=== PATIENT | female | born 1955 | race Caucasian/White ===

== ENCOUNTER → 2017-02-09 | Outpatient (CLI) | payer BC ==
--- NOTE | 2017-02-10 07:55 | MM ---
Reason for exam: screening (asymptomatic). Last mammogram was performed 1 year and 2 months ago. History: Patient is postmenopausal, has history of other cancer at age 46, and is nulliparous. Family history of breast cancer in aunt. Radiation therapy of the left breast, 2002. Chemotherapy. Took estrogen for 10 years. Took progesterone for 10 years. Physical Findings: A clinical breast exam by your physician is recommended on an annual basis and results should be correlated with mammographic findings. MG Screening Mammo w CAD Bilateral CC and MLO view(s) were taken. Prior study comparison: December 02, 2015, bilateral MG screening mammo w CAD. July 18, 2014, bilateral MG work up mamm w CAD BILAT. The breast tissue is heterogeneously dense. This may lower the sensitivity of mammography. Finding: There are typically benign calcifications in the left breast. There is no discrete abnormality. No significant changes in finding since December 02, 2015 and July 18, 2014. ASSESSMENT: Benign, BI-RAD 2 RECOMMENDATION: Routine screening mammogram of both breasts in 1 year.
== END | disposition home or self-care (01) ==
LOC: RADMAMWWP 07:04
PROVIDERS: ATTEND Internal Medicine Geriatric Medicine
DX: Z12.31 Encounter for screening mammogram for malignant neoplasm of breast (principal)

== ENCOUNTER 2017-10-27 04:09 | Emergency (ER) | payer BC ==
[2017-10-27] MEDS ORDERED: ACETAMINOPHEN IV (For NPO) 1,000 MG in EMPTY BAG 1 BAG IVPB STA (04:41)
[2017-10-27] MEDS ORDERED: SODIUM CHLORIDE 0.9% 1,000 ML IV ONE (04:42)
[2017-10-27] MEDS ORDERED: ONDANSETRON 4 MG/2 ML VIAL IVP STA (04:42)
--- NOTE | 2017-10-27 04:47 | ED ---
General Adult HPI - General Chief complaint: Nausea/Vomiting/Diarrhea Stated complaint: poss dehydration Time Seen by Provider: 10/27/17 04:30 Source: patient, RN notes reviewed, old records reviewed Mode of arrival: ambulatory Limitations: no limitations - History of Present Illness Initial comments: 62-year-old female presenting for evaluation of diarrhea and generalized weakness. Patient has history of lymphoma and myelodysplastic syndrome, she is approximately 14 months status post bone marrow transplant. She is currently on tacrolimus, prednisone, acyclovir. Denies any recent increases in her tacrolimus or other medication. She is currently on Levaquin for upper respiratory congestion and cough. Patient has had subjective fever and chills. Denies chest pain. Denies abdominal pain. Did have some nausea. She states she had proximally 4 episodes of significant diarrhea this occurred approximate 5 hours prior to presentation. Patient took Zofran and antidiarrheal medication prior to arrival. - Related Data Home Medications Medication Instructions Recorded Confirmed Atorvastatin [Lipitor] 20 mg PO HS 03/30/15 03/02/16 Ferrous Sulfate [Iron (65 MG 325 mg PO DAILY 03/30/15 03/02/16 Elemental)] Folic Acid 1 mg PO DAILY@0800 03/30/15 03/02/16 Hydroxychloroquine Sulfate 400 mg PO Q48H 03/30/15 03/02/16 [Plaquenil] Metoprolol Succinate [Toprol XL] 25 mg PO DAILY@0800 03/30/15 03/02/16 Alendronate Sodium 70 mg PO TU 04/07/15 03/02/16 Docusate [Colace] 100 mg PO DAILY PRN 04/07/15 03/02/16 Gabapentin [Neurontin] 100 mg PO TID@0600,1400,2200 04/07/15 03/02/16 Hydroxychloroquine Sulfate 200 mg PO Q48H 04/07/15 03/02/16 [Plaquenil] Multivitamins, Thera [Multivitamin 1 tab PO DAILY 04/07/15 03/02/16 (formulary)] Omeprazole [PriLOSEC] 20 mg PO BID 04/07/15 03/02/16 Acetaminophen Tab [Tylenol Tab] 500 - 1,000 mg PO Q6HR PRN 05/29/15 03/02/16 Ca/D3/Mag/Zinc/Nohemi/Rex/Mgbor 1 tab PO BID-W/MEALS 05/29/15 03/02/16 [Caltrate 600+D3+Min Chew Tab] Levothyroxine Sodium [Synthroid] 50 mcg PO TUFR 06/26/15 03/02/16 Levothyroxine Sodium [Synthroid] 100 mcg PO SUMOWETHSA 06/26/15 03/02/16 Magnesium Oxide [Mag-Ox] 400 mg PO BID 06/26/15 03/02/16 Acyclovir [Zovirax] 400 mg PO BID 02/28/16 03/02/16 Levofloxacin [Levaquin] 500 mg PO BID 02/28/16 03/02/16 levETIRAcetam [Keppra] 500 mg PO Q12HR 03/02/16 03/02/16 predniSONE 2.5 mg PO DAILY 03/02/16 03/02/16 Allergies Allergy/AdvReac Type Severity Reaction Status Date / Time Sulfa (Sulfonamide Allergy Unknown Verified 10/27/17 04:18 Antibiotics) Childhood codeine AdvReac Nausea Verified 10/27/17 04:18 hydrocodone bitartrate AdvReac Nausea Verified 10/27/17 04:18 [From Ruso] Review of Systems ROS Statement: Those systems with pertinent positive or pertinent negative responses have been documented in the HPI. ROS Other: All systems not noted in ROS Statement are negative. Past Medical History Past Medical History: Blood Disorder, Cancer, Deep Vein Thrombosis (DVT), GERD/ Reflux, Hypertension, Musculoskeletal Disorder, Osteoarthritis (OA), Renal Disease, Thyroid Disorder Additional Past Medical History / Comment(s): 06/26/15 Pt is a direct admission for chemotherapy. She is scheduled for her 3rd cycle. She intends to have a bone marrow transplant soon. Other HX: Ddiffuse large B-cell lymphoma -first diagnoses 12 yrs ago and pt was been doing well since that time. Then on pt had sinus pressure a mass was discovered and a bx performed at [facility] which confirmed diffuse large B cell lymphoma- pt has begun chemo (RD_EPOCH) at [facility] after which she ended up at [facility] with admission 05/05/15 due to fatigue, weakness, nausea, severe hyponatremia (chronic) ,hypocloremia, hypokalemia, hypomagnesium, anemia, pancytopenia, chemo induced neutropenia, UTI. Pt then decided to have chemo here-locally. She has had 2 doses of EOPCH with Rituxan so far. Additional hx of: DVT L axillae yrs ago, migraines, stage 3 kidney disease, antiphospholipid antibody syndrome with hypercoagulable state, anemia of chronic kidney disease, SLE, paresthesia, peripheral neuropathy bilateral hands, feet and some numbness in face which she attributes to chemo and nasal surgery, pt is on lipitor not for elevated lipids but due to lupus potentially causing heart dx. Bone marrow transplant 2016 History of Any Multi-Drug Resistant Organisms: None Reported Past Surgical History: Hysterectomy Additional Past Surgical History / Comment(s): 02/[facility]15 P[facility] line insertion. Other SX HX: tumor removed from left arm from 1st time of lymphoma, 04/16/15 sinus bx, yrs ago mediport L chest which never worked and was removed. Past Anesthesia/Blood Transfusion Reactions: No Reported Reaction Past Psychological History: Anxiety, Depression Smoking Status: Never smoker Past Alcohol Use History: None Reported Past Drug Use History: None Reported - Past Family History Father Family Medical History: Cancer Additional Family Medical History / Comment(s): prostate CA Mother Family Medical History: No Reported History Brother(s) Family Medical History: Myocardial Infarction (CA) General Exam Limitations: no limitations General appearance: alert, in no apparent distress Head exam: Present: atraumatic, normocephalic Eye exam: Present: normal appearance, PERRL ENT exam: Present: mucous membranes dry Neck exam: Present: normal inspection. Absent: tenderness, meningismus Respiratory exam: Present: normal lung sounds bilaterally. Absent: respiratory distress, wheezes Cardiovascular Exam: Present: regular rate, normal rhythm GI/Abdominal exam: Present: soft. Absent: distended, tenderness Extremities exam: Present: normal capillary refill, other (Chase discoloration of bilateral lower extremities). Absent: tenderness, pedal edema Neurological exam: Present: alert, oriented X3, CN II-XII intact. Absent: motor sensory deficit Psychiatric exam: Present: normal affect, normal mood Skin exam: Present: warm, dry, intact. Absent: cyanosis, diaphoretic Course Vital Signs 10/27/17 10/27/17 04:13 05:38 Temperature 100.2 F H Pulse Rate 99 87 Respiratory 18 18 Rate Blood Pressure 134/76 104/53 O2 Sat by Pulse 99 95 Oximetry Medical Decision Making - Medical Decision Making 62-year-old female presenting with nausea and diarrhea. Patient believes she is dehydrated. She has history of lymphoma status post bone marrow transplant. Patient pays very close attention to her symptoms. She has a home care nurse. She is given Zofran, Tylenol, and 1 L normal saline. Laboratory studies are obtained, white blood cell count 5.8, hemoglobin 12.5, platelets 178. Sodium 136, creatinine mildly elevated 1.1. Influenza negative, chest x- ray negative for focal pneumonia. Urinalysis negative for UTI. Patient is currently on Levaquin for upper respiratory tract infection. She is advised to monitor her diarrhea any serious chance for the development of C. difficile. She is very reliable patient and will return to the emergency department with any change in her symptoms. She does want to be discharged. She is offered admission and prefers discharge. Diagnosis: Diarrhea, dehydration - Lab Data Result diagrams: 10/27/17 05:25 10/27/17 05:25 Lab Results 10/27/17 10/27/17 10/27/17 Range/Units 05:25 05:25 05:25 WBC 5.8 (3.8-10.6) k/uL RBC 3.55 L (3.80-5.40) m/uL Hgb 12.5 (11.4-16.0) gm/dL Hct 39.0 (34.0-46.0) % MCV 109.9 H (80.0-100.0) fL MCH 35.1 H (25.0-35.0) pg MCHC 31.9 (31.0-37.0) g/dL RDW 13.7 (11.5-15.5) % Plt Count 179 (150-450) k/uL Neutrophils % (Manual) 66 % Band Neutrophils % 10 % Lymphocytes % (Manual) 11 % Monocytes % (Manual) 13 % Neutrophils # (Manual) 4.40 (1.3-7.7) k/uL Lymphocytes # (Manual) 0.64 L (1.0-4.8) k/uL Monocytes # (Manual) 0.75 (0-1.0) k/uL Nucleated RBCs 0 (0-0) /100 WBC Manual Slide Review Performed Macrocytosis Marked PT (9.0-12.0) sec INR (<1.2) APTT (22.0-30.0) sec Sodium 136 L (137-145) mmol/L Potassium 4.8 (3.5-5.1) mmol/L Chloride 101 (98-107) mmol/L Carbon Dioxide 29 (22-30) mmol/L Anion Gap 6 mmol/L BUN 29 H (7-17) mg/dL Creatinine 1.10 H (0.52-1.04) mg/dL Est GFR (MDRD) Af Amer >60 (>60 ml/min/1.73 sqM) Est GFR (MDRD) Non-Af 50 (>60 ml/min/1.73 sqM) Glucose 103 H (74-99) mg/dL Plasma Lactic Acid Jimi (0.7-2.0) mmol/L Calcium 8.9 (8.4-10.2) mg/dL Total Bilirubin 0.7 (0.2-1.3) mg/dL AST 33 (14-36) U/L ALT 38 (9-52) U/L Alkaline Phosphatase 55 (38-126) U/L Total Protein 6.0 L (6.3-8.2) g/dL Albumin 3.9 (3.5-5.0) g/dL Urine Color Urine Appearance (Clear) Urine pH (5.0-8.0) Ur Specific [place] (1.001-1.035) Urine Protein (Negative) Urine Glucose (UA) (Negative) Urine Ketones (Negative) Urine Blood (Negative) Urine Nitrite (Negative) Urine Bilirubin (Negative) Urine Urobilinogen (<2.0) mg/dL Ur Leukocyte Esterase (Negative) Urine RBC (0-5) /hpf Urine WBC (0-5) /hpf Urine Mucus (None) /hpf Influenza Type A RNA Not Detected (Not Detectd) Influenza Type B (PCR) Not Detected (Not Detectd) 10/27/17 10/27/17 10/27/17 Range/Units 05:25 05:25 05:25 WBC (3.8-10.6) k/uL RBC (3.80-5.40) m/uL Hgb (11.4-16.0) gm/dL Hct (34.0-46.0) % MCV (80.0-100.0) fL MCH (25.0-35.0) pg MCHC (31.0-37.0) g/dL RDW (11.5-15.5) % Plt Count (150-450) k/uL Neutrophils % (Manual) % Band Neutrophils % % Lymphocytes % (Manual) % Monocytes % (Manual) % Neutrophils # (Manual) (1.3-7.7) k/uL Lymphocytes # (Manual) (1.0-4.8) k/uL Monocytes # (Manual) (0-1.0) k/uL Nucleated RBCs (0-0) /100 WBC Manual Slide Review Macrocytosis PT 9.6 (9.0-12.0) sec INR 1.0 (<1.2) APTT 19.3 L (22.0-30.0) sec Sodium (137-145) mmol/L Potassium (3.5-5.1) mmol/L Chloride (98-107) mmol/L Carbon Dioxide (22-30) mmol/L Anion Gap mmol/L BUN (7-17) mg/dL Creatinine (0.52-1.04) mg/dL Est GFR (MDRD) Af Amer (>60 ml/min/1.73 sqM) Est GFR (MDRD) Non-Af (>60 ml/min/1.73 sqM) Glucose (74-99) mg/dL Plasma Lactic Acid Jimi 1.4 (0.7-2.0) mmol/L Calcium (8.4-10.2) mg/dL Total Bilirubin (0.2-1.3) mg/dL AST (14-36) U/L ALT (9-52) U/L Alkaline Phosphatase (38-126) U/L Total Protein (6.3-8.2) g/dL Albumin (3.5-5.0) g/dL Urine Color Yellow Urine Appearance Clear (Clear) Urine pH 6.5 (5.0-8.0) Ur Specific [place] 1.014 (1.001-1.035) Urine Protein 1+ H (Negative) Urine Glucose (UA) Negative (Negative) Urine Ketones Negative (Negative) Urine Blood Small H (Negative) Urine Nitrite Negative (Negative) Urine Bilirubin Negative (Negative) Urine Urobilinogen <2.0 (<2.0) mg/dL Ur Leukocyte Esterase Moderate H (Negative) Urine RBC 1 (0-5) /hpf Urine WBC 1 (0-5) /hpf Urine Mucus Rare H (None) /hpf Influenza Type A RNA (Not Detectd) Influenza Type B (PCR) (Not Detectd) Disposition Clinical Impression: Dehydration, Diarrhea Disposition: HOME SELF-CARE Condition: Good Instructions: Acute Diarrhea (ED) Referrals: Quentin Espinosa MD [Primary Care Provider] - 1-2 days Hunter Jolly MD [STAFF PHYSICIAN] - 1-2 days Time of Disposition: 06:40
[2017-10-27 05:49] LABS: ALT 38 U/L (9-52); AST 33 U/L (14-36); Albumin 3.9 g/dL (3.5-5.0); Alkaline Phosphatase 55 U/L (38-126); Anion Gap 6 mmol/L; Blood Urea Nitrogen 29 mg/dL (7-17); Calcium 8.9 mg/dL (8.4-10.2); Carbon Dioxide 29 mmol/L (22-30); Chloride 101 mmol/L (98-107); Glucose 103 mg/dL (74-99); Potassium 4.8 mmol/L (3.5-5.1); Sodium 136 mmol/L (137-145); Total Bilirubin 0.7 mg/dL (0.2-1.3)
[2017-10-27 05:52] LABS: HGB 12.5 gm/dL (11.4-16.0); MCH 35.1 pg (25.0-35.0); MCHC 31.9 g/dL (31.0-37.0); MCV 109.9 fL (80.0-100.0); Macrocytosis Marked; Mean Platelet Volume 7.5; Platelet Count 179 k/uL (150-450); RBC 3.55 m/uL (3.80-5.40); RDW 13.7 % (11.5-15.5); WBC 5.8 k/uL (3.8-10.6)
[2017-10-27 05:53] LABS: Prothrombin Time 9.6 sec (9.0-12.0)
[2017-10-27 05:54] LABS: Appearance,Urine Clear (Clear); Bilirubin,Urine Negative (Negative); Blood,Urine Small (Negative); Color,Urine Yellow; Glucose,Urine (UA) Negative (Negative); Ketones,Urine Negative (Negative); Leukocyte Esterase,Urine Moderate (Negative); Mucus,Urine Rare /hpf; Nitrite,Urine Negative (Negative); PH, Urine 6.5 (5.0-8.0); Protein,Urine 1+ (Negative); RBC,Urine 1 /hpf (0-5); Specific Gravity,Urine 1.014 (1.001-1.035); Urobilinogen,Urine <2.0 mg/dL (<2.0); WBC,Urine 1 /hpf (0-5)
[2017-10-27 06:08] LABS: Partial Thromboplastin Time 19.3 sec (22.0-30.0)
[2017-10-27 06:13] LABS: Band Neutrophils % 10 %; Lymphocytes # (M) 0.64 k/uL (1.0-4.8); Monocytes # (M) 0.75 k/uL (0-1.0); Neutrophils % (M) 66 %; Nucleated Red Blood Cells 0 /100 WBC (0-0); Total Cells Counted 100
--- NOTE | 2017-10-27 06:15 | XR ---
EXAMINATION TYPE: XR chest 2V DATE OF EXAM: 10/27/2017 COMPARISON: CT chest abdomen and pelvis July 15, 2016. Two-view chest x-ray May 26, 2015 HISTORY: Fever for one day. TECHNIQUE: Frontal and lateral views of the chest are obtained. FINDINGS: There is chronic parenchymal change without suspicious focal air space opacity, pleural ef fusion, or pneumothorax seen. The cardiac silhouette size is mildly enlarged with atherosclerotic ao rta. The osseous structures are intact. IMPRESSION: Chronic parenchymal changes and mild cardiomegaly without acute pulmonary process.
[2017-10-27 23:18] VITALS: BP 112/57; PULSE 81; RESP 18; TEMP 98.5
== END 2017-10-27 06:53 | disposition home or self-care (01) ==
LOC: EC 04:09
DX: E86.0 Dehydration (principal); R19.7 Diarrhea, unspecified; R53.1 Weakness; I10 Essential (primary) hypertension; K21.9 Gastro-esophageal reflux disease without esophagitis; E07.9 Disorder of thyroid, unspecified; I12.9 Hypertensive chronic kidney disease with stage 1 through stage 4 chronic kidney disease, or unspecified chronic kidney disease; N18.3 Chronic kidney disease, stage 3 (moderate); F41.9 Anxiety disorder, unspecified; F32.9 Major depressive disorder, single episode, unspecified; Z85.72 Personal history of non-Hodgkin lymphomas; Z94.81 Bone marrow transplant status; Z86.718 Personal history of other venous thrombosis and embolism; Z79.52 Long term (current) use of systemic steroids; Z79.899 Other long term (current) drug therapy; Z88.2 Allergy status to sulfonamides; Z88.5 Allergy status to narcotic agent
CPT/HCPCS: 99284 ×2; 96374 ×2; 96375 ×2; 96361 ×2; 36415; 80053; 83605; 85025; 85610; 85730; 81001; 87040; 87502; 71046; J2405; J0131

== ENCOUNTER → 2017-10-29 | Outpatient (CLI) | payer BC ==
--- NOTE | 2017-10-29 11:08 | BD ---
EXAMINATION TYPE: MG DEXA axial skeleton. DATE OF EXAM: 10/29/2017 COMPARISON: NONE CLINICAL HISTORY: M81.0 Age related osteoporosis w/o fracture Height: 64 Weight: 136.1 FRAX RISK QUESTIONS: Alcohol (3 or more units per day): no Family History (Parent hip fracture): no Glucocorticoids (More than 3mos): yes/ prednisone (Ex: prednisone, prednisolone, methylprednisolone, dexamethasone, and hydrocortisone). History of Fracture in Adulthood: no Secondary Osteoporosis: 1. Type 1 Diabetes: no 2. Hyperthyroidism: no 3. Menopause before 45: yes 4. Malnutrition: no 5. Chronic liver disease: no Rheumatoid Arthritis: no Current Tobacco Use: no RISK FACTORS HISTORY OF: Hip Fracture (Right/Left): no Spine Fracture: no History of Wrist Fracture: no Surgery to Spine/Hip(right/left)/Wrist (right/left): no Family History of Osteoporosis: no Active: yes Diet low in dairy products/other sources of calcium: yes Postmenopausal woman: complete hysterectomy age 33 Lost more than 2 inches in height since high school: no Frequent falls: no Poor Health: no Hyperparathyroidism: no Adrenal Insufficiency: no MEDICATIONS: Prednisone : yes How Lon years Thyroid Medications: synthroid How Long: since 2002 Osteoporosis Medications: stopped taking fosamax 1 year ago How Long: took for at least three years Additional History: pt was diagnosed with lupus at age 14, had lymphoma in 2002 and again in 2017- serrano s had a bone marrow transplant EXAM MEASUREMENTS: Bone mineral densitometry was performed using the [employer] System. Bone mineral density as measured about the Lumbar spine is: ----- L1-L4(G/cm2): 0.876 T Score Values are as follows: ----- L2: -3.0 ----- L3: -2.0 ----- L4: -3.0 ----- L1-L4: -2.5 Bone mineral density has: decreased -2.5 % since study of: 2015 Bone mineral density about the R hip (g/cm2): 0.898 Bone mineral density about the L hip (g/cm2): 0.845 T Score values are as follows: -----R Neck: -1.0 -----L Neck: -1.4 -----R Total: -1.1 -----L Total: -1.0 Bone mineral density has: decreased -5.7 % since study of: 07.17.2016 IMPRESSION: 1. Osteoporosis about the lumbar spine. NOTE: T-SCORE=SD OF THE YOUNG ADULT MEAN.
== END | disposition home or self-care (01) ==
LOC: RADBDWWP 07:10
PROVIDERS: ATTEND Internal Medicine Geriatric Medicine
DX: M81.0 Age-related osteoporosis without current pathological fracture (principal)
CPT/HCPCS: 77080

== ENCOUNTER → 2018-03-10 | Outpatient (CLI) | payer BC ==
--- NOTE | 2018-03-11 10:28 | MM ---
Reason for exam: screening (asymptomatic). Last mammogram was performed 1 year and 1 month ago. History: Patient is postmenopausal, has history of other cancer at age 46, and is nulliparous. Family history of breast cancer in aunt. Radiation therapy of the left breast, 2002. Chemotherapy. Took estrogen for 10 years. Took progesterone for 10 years. Physical Findings: A clinical breast exam by your physician is recommended on an annual basis and results should be correlated with mammographic findings. MG 3D Screening Mammo W/Cad Bilateral CC and MLO view(s) were taken. Prior study comparison: February 09, 2017, bilateral MG screening mammo w CAD. December 02, 2015, bilateral MG screening mammo w CAD. There are scattered fibroglandular densities. Skin thickening left breast appears increased from priors. This finding is changed when compared with previous exams. ASSESSMENT: Incomplete: need additional imaging evaluation, BI-RAD 0 RECOMMENDATION: Ultrasound of the left breast. (left ultrasound recommended and surgical consult after diagnostic exam) [facility] will attempt to contact patient to return for ultrasound.
== END | disposition home or self-care (01) ==
LOC: RADMAMWWP 13:16
PROVIDERS: ATTEND Internal Medicine Geriatric Medicine
DX: Z12.31 Encounter for screening mammogram for malignant neoplasm of breast (principal)
CPT/HCPCS: 77063; 77067

== ENCOUNTER → 2018-03-16 | Outpatient (CLI) | payer BC ==
--- NOTE | 2018-03-17 07:03 | USB ---
Reason for exam: additional evaluation requested from abnormal screening. History: Patient is postmenopausal, has history of other cancer at age 46, and is nulliparous. Family history of breast cancer in aunt. Radiation therapy of the left breast, 2002. Chemotherapy. Took estrogen for 10 years. Took progesterone for 10 years. Physical Findings: Nurse did not find any significant physical abnormalities on exam. US Breast Workup LT Left complete breast ultrasound includes all four quadrants, the retroareolar region and axilla. Finding demonstrates a 0.5 x 0.5 x 0.3cm irregular, hyperechoic lesion at 7 o'clock retroareolar which correlates with calcification on mammographic findings. These results were verbally communicated with the patient and result sheet given to the patient on 03/16/18. ASSESSMENT: Benign, BI-RAD 2 RECOMMENDATION: Return to routine screening mammogram schedule for both breasts.
== END | disposition home or self-care (01) ==
LOC: RADUSWWP 15:31
PROVIDERS: ATTEND Internal Medicine Geriatric Medicine
DX: R92.8 Other abnormal and inconclusive findings on diagnostic imaging of breast (principal)

== ENCOUNTER → 2018-09-19 | Outpatient (CLI) | payer MEDICARE, BC ==
--- NOTE | 2018-09-19 13:46 | BD ---
EXAMINATION TYPE: Axial Bone Density DATE OF EXAM: 09/19/2018 COMPARISON: 10/29/2017 CLINICAL HISTORY: Postmenopausal female. Osteoporosis screening. Height: 63 IN Weight: 131 LBS FRAX RISK QUESTIONS: Secondary Osteoporosis: 3. Menopause before 45: YES TOTAL HYST AGE 33 RISK FACTORS HISTORY OF: Active: YES Postmenopausal woman: AGE 33 Take estrogen and/or progesterone medications: NOT NOW How lon - 43 MEDICATIONS: Thyroid Medications: YES Which medication: Synthroid How Lon YEARS Osteoporosis Medications: YES Which medication: ABALOPARATIDE 80 MCG DAILY INJECTION How Long: ONE YEAR Additional Medications: IBRUTINIB, APIXABAN, DAPSONE, FLUCONAZOLE, DEXAMETHASONE, RESTASIS, TOPROL XL , PROCTOCORT, KENALOG OINTMENT, SINGULAIR, ADVAIR DISKUS, ZITHROMAX, GABAPENTIN, ZOVIRAX, ABALOPARATI DE INJECTION, CRESTOR, ZYRTEC, VIT D, CALCIUM,SYNTHROID Additional History: NON HODGEKINS LYMPHOMA 2002 AND 2014 WITH CHEMO AND RADIATION AUTO BONE MARROW WITH CHEMO 2014; ALLO BONE MARROW WITH CHEMO 2015 EXAM MEASUREMENTS: Bone mineral densitometry was performed using the [employer] System. Bone mineral density as measured about the Lumbar spine is: ----- L1-L4(G/cm2): 1.115 T Score Values are as follows: ----- L2: -0.9 ----- L3: -0.2 ----- L4: -0.9 ----- L1-L4: -0.5 Bone mineral density has: Increased 26.7% since study of: 10/29/2017 Bone mineral density about the R hip (g/cm2): 0.983 Bone mineral density about the L hip (g/cm2): 0.971 T Score values are as follows: -----R Neck: -0.4 -----L Neck: -0.5 -----R Total: -0.5 -----L Total: 0.0 Bone mineral density has: Increased 11.9% since study of: 10/29/2017 IMPRESSION: Normal (Values between +1 and -1 indicate normal bone mass). Consider repeating this study in 5 year s or sooner if there is some new clinical indication. NOTE: T-SCORE=SD OF THE YOUNG ADULT MEAN.
== END | disposition home or self-care (01) ==
LOC: RADBDWWP 07:37
PROVIDERS: ATTEND Internal Medicine Geriatric Medicine
DX: M81.0 Age-related osteoporosis without current pathological fracture (principal)
CPT/HCPCS: 77080

== ENCOUNTER → 2020-06-03 | Outpatient (CLI) | payer MEDICARE ==
--- NOTE | 2020-06-03 14:31 | MM ---
Reason for exam: screening (asymptomatic). Last mammogram was performed 1 year and 1 month ago. History: Patient is postmenopausal, has history of other cancer at age 46, and is nulliparous. Family history of breast cancer in aunt. Radiation therapy of the left breast, 2002. Chemotherapy. Took estrogen for 10 years. Took progesterone for 10 years. Physical Findings: A clinical breast exam by your physician is recommended on an annual basis and results should be correlated with mammographic findings. MG 3D Screening Mammo W/Cad Bilateral CC and MLO view(s) were taken. Prior study comparison: April 26, 2019, bilateral MG 3d screening mammo w/cad. March 10, 2018, bilateral MG 3d screening mammo w/cad. The breast tissue is heterogeneously dense. This may lower the sensitivity of mammography. There are benign appearing round dystrophic calcifications bilaterally. There is no discrete abnormality. ASSESSMENT: Benign, BI-RAD 2 RECOMMENDATION: Routine screening mammogram of both breasts in 1 year.
== END | disposition home or self-care (01) ==
LOC: RADMAMWWP 07:14
PROVIDERS: ATTEND Internal Medicine Geriatric Medicine
DX: Z12.31 Encounter for screening mammogram for malignant neoplasm of breast (principal)
CPT/HCPCS: 77063; 77067

== ENCOUNTER 2020-12-27 01:06 | Emergency (ER) | payer MEDICARE ==
[2020-12-27 01:12] VITALS: BP 131/79; PULSE 67; RESP 20; TEMP 98
[2020-12-27] MEDS ORDERED: SODIUM CHLORIDE 0.9% 1,000 ML IV STA (01:45)
[2020-12-27] MEDS ORDERED: ONDANSETRON 4 MG/2 ML VIAL IVP STA (01:45)
--- NOTE | 2020-12-27 01:49 | ED ---
Nausea/Vomiting/Diarrhea HPI - General Chief complaint: Nausea/Vomiting/Diarrhea Stated complaint: Diarrhea, Vomiting Time Seen by Provider: 12/27/20 01:15 Source: patient, family Mode of arrival: wheelchair Limitations: no limitations - History of Present Illness Initial comments: This patient is 65-year-old woman who presents with complaint of nausea vomiting and diarrhea. She states that started a few hours ago. She had which she felt was a normal bowel movement tonight and this was followed shortly thereafter by another 6 or 7 watery bowel movements and then also feeling nausea and vomiting. She has had some intermittent generalized abdominal cramping. Patient is concerned about possibility of dehydration as this tends to set and quickly for her. She has not had any coffee-ground or bloody emesis. No bloody or tarry stools. MD complaint: nausea, vomiting, diarrhea, abdominal pain -: hour(s) Description of Vomiting: watery Description of Diarrhea: water Associated Abdominal Pain: Yes Location: diffuse Severity: mild Quality: cramping Consistency: intermittent Improves with: none Worsens with: none Context: possible food poisoning Associated Symptoms: nausea/vomiting - Related Data Home Medications Medication Instructions Recorded Confirmed Atorvastatin [Lipitor] 20 mg PO HS 03/30/15 03/02/16 Ferrous Sulfate [Iron (65 MG 325 mg PO DAILY 03/30/15 03/02/16 Elemental)] Folic Acid 1 mg PO DAILY@0800 03/30/15 03/02/16 Hydroxychloroquine Sulfate 400 mg PO Q48H 03/30/15 03/02/16 [Plaquenil] Metoprolol Succinate [Toprol XL] 25 mg PO DAILY@0800 03/30/15 03/02/16 Alendronate Sodium 70 mg PO TU 04/07/15 03/02/16 Docusate [Colace] 100 mg PO DAILY PRN 04/07/15 03/02/16 Gabapentin [Neurontin] 100 mg PO TID@0600,1400,2200 04/07/15 03/02/16 Hydroxychloroquine Sulfate 200 mg PO Q48H 04/07/15 03/02/16 [Plaquenil] Multivitamins, Thera [Multivitamin 1 tab PO DAILY 04/07/15 03/02/16 (formulary)] Omeprazole [PriLOSEC] 20 mg PO BID 04/07/15 03/02/16 Acetaminophen Tab [Tylenol Tab] 500 - 1,000 mg PO Q6HR PRN 05/29/15 03/02/16 Ca/D3/Mag/Zinc/Nohemi/Rex/Mgbor 1 tab PO BID-W/MEALS 05/29/15 03/02/16 [Caltrate 600+D3+Min Chew Tab] Levothyroxine Sodium [Synthroid] 50 mcg PO TUFR 06/26/15 03/02/16 Levothyroxine Sodium [Synthroid] 100 mcg PO SUMOWETHSA 06/26/15 03/02/16 Magnesium Oxide [Mag-Ox] 400 mg PO BID 06/26/15 03/02/16 Acyclovir [Zovirax] 400 mg PO BID 02/28/16 03/02/16 Levofloxacin [Levaquin] 500 mg PO BID 02/28/16 03/02/16 levETIRAcetam [Keppra] 500 mg PO Q12HR 03/02/16 03/02/16 predniSONE 2.5 mg PO DAILY 03/02/16 03/02/16 Previous Rx's Medication Instructions Recorded Ondansetron Odt [Zofran ODT] 4 mg PO Q8HR PRN #10 tab 12/27/20 Allergies Allergy/AdvReac Type Severity Reaction Status Date / Time Sulfa (Sulfonamide Allergy Unknown Verified 12/27/20 01:13 Antibiotics) Childhood codeine AdvReac Nausea Verified 12/27/20 01:13 hydrocodone bitartrate AdvReac Nausea Verified 12/27/20 01:13 [From [place]] Review of Systems ROS Statement: Those systems with pertinent positive or pertinent negative responses have been documented in the HPI. ROS Other: All systems not noted in ROS Statement are negative. Constitutional: Denies: fever, chills Respiratory: Denies: cough, dyspnea Cardiovascular: Denies: chest pain, palpitations, edema Gastrointestinal: Reports: abdominal pain, nausea, vomiting, diarrhea. Denies: constipation, hematemesis, melena, hematochezia Genitourinary: Denies: dysuria, hematuria Musculoskeletal: Denies: back pain Skin: Denies: rash Neurological: Denies: headache, weakness, numbness Past Medical History Past Medical History: Blood Disorder, Cancer, Deep Vein Thrombosis (DVT), DEVON D/Reflux, Hypertension, Musculoskeletal Disorder, Osteoarthritis (OA), Renal Disease, Thyroid Disorder Additional Past Medical History / Comment(s): 06/26/15 Pt is a direct admission for chemotherapy. She is scheduled for her 3rd cycle. She intends to have a bone marrow transplant soon. Other HX: Ddiffuse large B-cell lymphoma -first diagnoses 12 yrs ago and pt was been doing well since that time. Then on 04/16/15 pt had sinus pressure a mass was discovered and a bx performed at [facility] which confirmed diffuse large B cell lymphoma- pt has begun chemo (RD_EPOCH) at [facility] after which she ended up at [facility] with admission 05/05/15 due to fatigue, weakness, nausea, severe hyponatremia (chronic) ,hypocloremia, hypokalemia, hypomagnesium, anemia, pancytopenia, chemo induced neutropenia, UTI. Pt then decided to have chemo here-locally. She has had 2 doses of EOPCH with Rituxan so far. Additional hx of: DVT L axillae yrs ago, migraines, stage 3 kidney disease, antiphospholipid antibody syndrome with hypercoagulable state, anemia of chronic kidney disease, SLE, paresthesia, peripheral neuropathy bilateral hands, feet and some numbness in face which she attributes to chemo and nasal surgery, pt is on lipitor not for elevated lipids but due to lupus potentially causing heart dx. Bone marrow transplant 2015 History of Any Multi-Drug Resistant Organisms: None Reported Past Surgical History: Hysterectomy Additional Past Surgical History / Comment(s): 02/2015 bone marrow aspiration at [facility], 05/29/15 PICC line insertion. Other SX HX: tumor removed from left arm from 1st time of lymphoma, 04/16/15 sinus bx, yrs ago mediport L chest which never worked and was removed. Past Anesthesia/Blood Transfusion Reactions: No Reported Reaction Past Psychological History: Anxiety, Depression Past Alcohol Use History: None Reported Past Drug Use History: None Reported - Past Family History Father Family Medical History: Cancer Additional Family Medical History / Comment(s): prostate CA Mother Family Medical History: No Reported History Brother(s) Family Medical History: Myocardial Infarction ([place]) General Exam Limitations: no limitations General appearance: alert, in no apparent distress Head exam: Present: atraumatic, normocephalic Eye exam: Present: normal appearance. Absent: scleral icterus, conjunctival injection ENT exam: Present: mucous membranes dry Neck exam: Present: normal inspection Respiratory exam: Present: normal lung sounds bilaterally. Absent: respiratory distress, wheezes, rales, rhonchi, stridor Cardiovascular Exam: Present: regular rate, normal rhythm, normal heart sounds. Absent: systolic murmur, diastolic murmur, rubs, gallop GI/Abdominal exam: Present: soft. Absent: distended, tenderness, guarding, rebound, rigid, mass, pulsatile mass, hernia Extremities exam: Present: normal inspection, normal capillary refill. Absent: pedal edema, calf tenderness Back exam: Present: normal inspection. Absent: CVA tenderness (R), CVA tenderness (L) Neurological exam: Present: alert Skin exam: Present: warm, dry, intact, normal color. Absent: rash Course Vital Signs 12/27/20 01:09 Temperature 98 F Pulse Rate 67 Respiratory 20 Rate Blood Pressure 131/79 O2 Sat by Pulse 91 L Oximetry Medical Decision Making - Lab Data Result diagrams: 12/27/20 01:30 12/27/20 01:30 Lab Results 12/27/20 12/27/20 Range/Units 01:30 01:30 WBC 6.4 (3.8-10.6) k/uL RBC 4.29 (3.80-5.40) m/uL Hgb 13.8 (11.4-16.0) gm/dL Hct 42.7 (34.0-46.0) % MCV 99.6 (80.0-100.0) fL MCH 32.1 (25.0-35.0) pg MCHC 32.2 (31.0-37.0) g/dL RDW 13.7 (11.5-15.5) % Plt Count 258 (150-450) k/uL MPV 7.6 Lymphocytes % 26 % Monocytes % 6 % Eosinophils % 0 % Basophils % 0 % Neutrophils # 4.2 (1.3-7.7) k/uL Lymphocytes # 1.7 (1.0-4.8) k/uL Monocytes # 0.4 (0-1.0) k/uL Eosinophils # 0.0 (0-0.7) k/uL Basophils # 0.0 (0-0.2) k/uL Sodium 138 (137-145) mmol/L Potassium 3.9 (3.5-5.1) mmol/L Chloride 100 (98-107) mmol/L Carbon Dioxide 29 (22-30) mmol/L Anion Gap 9 mmol/L BUN 28 H (7-17) mg/dL Creatinine 1.04 (0.52-1.04) mg/dL Est GFR (CKD-EPI)AfAm 65 (>60 ml/min/1.73 sqM) Est GFR (CKD-EPI)NonAf 56 (>60 ml/min/1.73 sqM) Glucose 111 H (74-99) mg/dL Calcium 10.0 (8.4-10.2) mg/dL Total Bilirubin 0.5 (0.2-1.3) mg/dL AST 35 (14-36) U/L ALT 22 (4-34) U/L Alkaline Phosphatase 80 (38-126) U/L Total Protein 7.0 (6.3-8.2) g/dL Albumin 4.6 (3.5-5.0) g/dL Amylase 71 (30-110) U/L Lipase 81 (23-300) U/L Disposition Clinical Impression: Gastroenteritis Disposition: HOME SELF-CARE Condition: Good Instructions (If sedation given, give patient instructions): Gastroenteritis (ED) Prescriptions: Ondansetron Odt [Zofran ODT] 4 mg PO Q8HR PRN #10 tab PRN Reason: Nausea Is patient prescribed a controlled substance at d/c from ED?: No Referrals: Quentin Espinosa MD [Primary Care Provider] - 1-2 days
[2020-12-27 02:22] LABS: Albumin 4.6 g/dL (3.5-5.0); Potassium 3.9 mmol/L (3.5-5.1); Total Bilirubin 0.5 mg/dL (0.2-1.3)
[2020-12-27 02:29] LABS: Basophils % (A) 0 %; Eosinophils % (A) 0 %; HCT 42.7 % (34.0-46.0); HGB 13.8 gm/dL (11.4-16.0); Lymphocytes # (A) 1.7 k/uL (1.0-4.8); Lymphocytes % (A) 26 %; MCH 32.1 pg (25.0-35.0); MCHC 32.2 g/dL (31.0-37.0); MCV 99.6 fL (80.0-100.0); Mean Platelet Volume 7.6; Monocytes # (A) 0.4 k/uL (0-1.0); Monocytes % (A) 6 %; Neutrophils # (A) 4.2 k/uL (1.3-7.7); Platelet Count 258 k/uL (150-450); RBC 4.29 m/uL (3.80-5.40); RDW 13.7 % (11.5-15.5); WBC 6.4 k/uL (3.8-10.6)
== END 2020-12-27 04:35 | disposition home or self-care (01) ==
LOC: EC 01:06
DX: K52.9 Noninfective gastroenteritis and colitis, unspecified (principal); I12.9 Hypertensive chronic kidney disease with stage 1 through stage 4 chronic kidney disease, or unspecified chronic kidney disease; N18.30 Chronic kidney disease, stage 3 unspecified; D63.1 Anemia in chronic kidney disease; K21.9 Gastro-esophageal reflux disease without esophagitis; F32.9 Major depressive disorder, single episode, unspecified; F41.9 Anxiety disorder, unspecified; M19.90 Unspecified osteoarthritis, unspecified site; Z79.52 Long term (current) use of systemic steroids; Z79.899 Other long term (current) drug therapy; Z86.718 Personal history of other venous thrombosis and embolism
CPT/HCPCS: 36415; 80053; 82150; 83690; 85025; 87324; 99284; 96374; 96361; J2405

== ENCOUNTER 2021-05-23 16:32 | Emergency (ER) | payer MEDICARE ==
[2021-05-23 16:41] VITALS: TEMP 98.4
--- NOTE | 2021-05-23 17:14 | ED ---
General Adult HPI - General Chief complaint: Recheck/Abnormal Lab/Rx Stated complaint: Fall/Sent by Time Seen by Provider: 05/23/21 16:42 Source: patient Mode of arrival: wheelchair Limitations: no limitations - History of Present Illness Initial comments: Dictation was produced using [employer] dictation software. please excuse any grammatical, word or spelling errors. Chief Complaint: 65-year-old female presents to the emergency department for abnormal CT History of Present Illness: Is a 65-year-old female she was sent in by her primary care doctor for abnormal CT. She was seen this morning at the urgent care after suffering a fall. She was ordered to have a computed tomography scan. Computed tomography scan showed nodular prominence of the distal right ICA compatible with aneurysm measuring 8 mm. Patient states that she hasn't been having headaches. She did have some head pain after fall. She denies a feeling worsening of her life. She denies any focal neurologic deficits. She feels fine otherwise. The ROS documented in this emergency department record has been reviewed and confirmed by me. Those systems with pertinent positive or negative responses have been documented in the HPI. All other systems are other negative and/or noncontributory. PHYSICAL EXAM: General Impression: Alert and oriented x3, not in acute distress HEENT: Normocephalic atraumatic, extra-ocular movements intact, pupils equal and reactive to light bilaterally, mucous membranes moist. Cardiovascular: Heart regular rate and rhythm Chest: Able to complete full sentences, no retractions, no tachypnea Abdomen: abdomen soft, non-tender, non-distended, no organomegaly Musculoskeletal: Pulses present and equal in all extremities, no peripheral edema Motor: no focal deficits noted Neurological: CN II-XII grossly intact, no focal motor or sensory deficits noted Skin: Intact with no visualized rashes Psych: Normal affect and mood ED course: 65-year-old female presents with abnormal brain CT that showed incidental finding of a 10 mm aneurysm. Signs upon arrival are within acceptable limits. Patient's well-appearing at bedside. She has no complaint of severe headache. Laboratory evaluation obtained. CBC, metabolic panel is unremarkable. CT angiogram of the head and neck was obtained showing a 6 mm aneurysm at the right ICA diameter, and one junction. Case discussed with Dr. Katz who also reviewed patient's film. He recommends patient be followed up an outpatient. Discussed with patient stroke doctor recommendations. She will follow up in his outpatient clinic. Return precautions discussion is that she should seek immediate medical attention if she has the worse headache of her life, strokelike symptoms, syncope or thunderclap headache. She denies any symptoms at time of discharge. - Related Data Home Medications Medication Instructions Recorded Confirmed Levothyroxine Sodium [Synthroid] 100 mcg PO DAILY 06/26/15 05/23/21 Aspirin EC [Ecotrin Low Dose] 81 mg PO HS 05/23/21 05/23/21 Azithromycin [Zithromax] 250 mg PO MOWEFR 05/23/21 05/23/21 Calcium Carbonate [Calcium] 600 mg PO W/SUPPER 05/23/21 05/23/21 Cetirizine HCl [Zyrtec] 10 mg PO DAILY 05/23/21 05/23/21 Cholecalciferol [Vitamin D3 (25 25 mcg PO DAILY 05/23/21 05/23/21 Mcg = 1000 Iu)] Estradiol Cream [Estrace Cream 1 gram VAGINAL HS 05/23/21 05/23/21 0.01%] Fluticasone/Salmeterol [Advair 1 puff INHALATION RT-BID 05/23/21 05/23/21 250-50 Diskus] Gabapentin 300 mg PO DAILY 05/23/21 05/23/21 Metoprolol Succinate (ER) [Toprol 100 mg PO DAILY 05/23/21 05/23/21 Xl] Montelukast [Singulair] 10 mg PO HS 05/23/21 05/23/21 Proctocort 30mg Suppository 30 mg VAGINAL HS 05/23/21 05/23/21 Rosuvastatin Calcium 10 mg PO HS 05/23/21 05/23/21 Triamcinolone 0.1% Ointment 1 applic TOPICAL HS 05/23/21 05/23/21 [Kenalog 0.1% Ointment] cycloSPORINE 0.05% OPHTH SOLN 1 applicate BOTH EYES BID 05/23/21 05/23/21 [Restasis] Allergies Allergy/AdvReac Type Severity Reaction Status Date / Time Sulfa (Sulfonamide Allergy Unknown Verified 05/23/21 17:31 Antibiotics) Childhood codeine AdvReac Nausea Verified 05/23/21 17:31 hydrocodone bitartrate AdvReac Nausea Verified 05/23/21 17:31 [From [place]] Review of Systems ROS Statement: Those systems with pertinent positive or pertinent negative responses have been documented in the HPI. ROS Other: All systems not noted in ROS Statement are negative. Past Medical History Past Medical History: Blood Disorder, Cancer, Deep Vein Thrombosis (DVT), GERD/Reflux, Hypertension, Musculoskeletal Disorder, Osteoarthritis (OA), Renal Disease, Thyroid Disorder Additional Past Medical History / Comment(s): 06/26/15 Pt is a direct admission for chemotherapy. She is scheduled for her 3rd cycle. She intends to have a bone marrow transplant soon. Other HX: Ddiffuse large B-cell lymphoma -first diagnoses 12 yrs ago and pt was been doing well since that time. Then on 04/16/15 pt had sinus pressure a mass was discovered and a bx performed at of which confirmed diffuse large B cell lymphoma- [facility] which [facility] at [facility] with admission 05/05/15 due to fatigue, weakness, nausea, severe hyponatremia (chronic) ,hypocloremia, hypokalemia, hypomagnesium, anemia, pancytopenia, chemo induced neutropenia, UTI. Pt then decided to have chemo here-locally. She has had 2 doses of EOPCH with Rituxan so far. Additional hx of: DVT L axillae yrs ago, migraines, stage 3 kidney disease, antiphospholipid antibody syndrome with hypercoagulable state, anemia of chronic kidney disease, SLE, paresthesia, peripheral neuropathy bilateral hands, feet and some numbness in face which she attributes to chemo and nasal surgery, pt is on lipitor not for elevated lipids but due to lupus potentially causing heart dx. Bone marrow transplant 2016 History of Any Multi-Drug Resistant Organisms: None Reported Past Surgical History: Hysterectomy Additional Past Surgical History / Comment(s): 02/2015 [facility] , 05/29/15 PICC line insertion. Other SX HX: tumor removed from left arm from 1st time of lymphoma, 04/16/15 sinus bx, yrs ago mediport L chest which never worked and was removed. Past Anesthesia/Blood Transfusion Reactions: No Reported Reaction Past Psychological History: Anxiety, Depression Smoking Status: Never smoker Past Alcohol Use History: None Reported Past Drug Use History: None Reported - Past Family History Father Family Medical History: Cancer Additional Family Medical History / Comment(s): prostate CA Mother Family Medical History: No Reported History Brother(s) Family Medical History: Myocardial Infarction ([place]) General Exam Limitations: no limitations Course Vital Signs 05/23/21 05/23/21 16:38 19:00 Temperature 98.4 F Pulse Rate 74 77 Respiratory 20 18 Rate Blood Pressure 156/87 167/86 O2 Sat by Pulse 97 97 Oximetry Medical Decision Making - Lab Data Result diagrams: 05/23/21 17:11 05/23/21 17:11 Lab Results 05/23/21 05/23/21 Range/Units 17:11 17:11 WBC 6.7 (3.8-10.6) k/uL RBC 3.51 L (3.80-5.40) m/uL Hgb 12.2 (11.4-16.0) gm/dL Hct 35.8 (34.0-46.0) % MCV 101.8 H (80.0-100.0) fL MCH 34.6 (25.0-35.0) pg MCHC 34.0 (31.0-37.0) g/dL RDW 13.9 (11.5-15.5) % Plt Count 264 (150-450) k/uL MPV 7.4 Neutrophils % (Manual) 41 % Band Neuts % (Manual) 1 % Lymphocytes % (Manual) 41 % Monocytes % (Manual) 16 % Metamyelocytes % 1 % Neutrophils # (Manual) 2.80 (1.3-7.7) k/uL Lymphocytes # (Manual) 2.75 (1.0-4.8) k/uL Monocytes # (Manual) 1.07 H (0-1.0) k/uL Metamyelocytes # (Man) 0.07 H (0) k/uL Nucleated RBCs 0 (0-0) /100 WBC Manual Slide Review Performed Macrocytosis Slight Sodium 136 L (137-145) mmol/L Potassium 4.9 (3.5-5.1) mmol/L Chloride 103 (98-107) mmol/L Carbon Dioxide 28 (22-30) mmol/L Anion Gap 5 mmol/L BUN 26 H (7-17) mg/dL Creatinine 0.97 (0.52-1.04) mg/dL Est GFR (CKD-EPI)AfAm 70 (>60 ml/min/1.73 sqM) Est GFR (CKD-EPI)NonAf 61 (>60 ml/min/1.73 sqM) Glucose 117 H (74-99) mg/dL Calcium 9.2 (8.4-10.2) mg/dL Disposition Clinical Impression: Intracranial aneurysm Disposition: HOME SELF-CARE Condition: Good Instructions (If sedation given, give patient instructions): Nonruptured Cerebral Aneurysm (DC) Additional Instructions: Seek immediate medical attention with any severe headache, strokelike symptoms, syncope Is patient prescribed a controlled substance at d/c from ED?: No Referrals: Wayne Mcguire MD [STAFF PHYSICIAN] - 1-2 days
[2021-05-23 17:37] LABS: HCT 35.8 % (34.0-46.0); HGB 12.2 gm/dL (11.4-16.0); MCH 34.6 pg (25.0-35.0); MCV 101.8 fL (80.0-100.0); Macrocytosis Slight; Mean Platelet Volume 7.4; Platelet Count 264 k/uL (150-450); RBC 3.51 m/uL (3.80-5.40); RDW 13.9 % (11.5-15.5); WBC 6.7 k/uL (3.8-10.6)
[2021-05-23 17:52] LABS: Calcium 9.2 mg/dL (8.4-10.2)
[2021-05-23 17:55] LABS: Potassium 4.9 mmol/L (3.5-5.1)
[2021-05-23 18:09] LABS: Band Neutrophils % 1 %; Lymphocytes # (M) 2.75 k/uL (1.0-4.8); Metamyelocytes # (M) 0.07 k/uL (0); Metamyelocytes % 1 %; Monocytes # (M) 1.07 k/uL (0-1.0); Neutrophils % (M) 41 %; Nucleated Red Blood Cells 0 /100 WBC (0-0); Total Cells Counted 100
--- NOTE | 2021-05-23 19:31 | CT ---
EXAMINATION TYPE: CT angio head neck DATE OF EXAM: 05/23/2021 HISTORY: Aneurysm seen on previous CT. COMPARISON: None available. CT DLP: 420.8 mGycm. Automated Exposure Control for Dose Reduction was Utilized. TECHNIQUE: CTA scan of the neck is performed with IV Contrast, patient injected with 65ml mL of Isov ue 370, axial images are obtained, coronal and sagittal reformatted images are reviewed. Three-D natalia nstructed images are created on an independent workstation and reviewed. FINDINGS: There is mild atherosclerosis of the aortic arch. Otherwise normal three-vessel branching of the aort a. There is no evidence of high-grade stenosis, dissection or aneurysm seen in the bilateral common c arotid, cervical internal carotid and vertebral arteries. There is approximately 6 x 5 mm aneurysm at the right ICA terminus and MCA M1 junction. Otherwise no evidence of high-grade stenosis or dissection in the intracranial internal carotid arteries, anterior , middle and posterior cerebral arteries as well as in the imaged vertebral and basilar arteries. The communicating arteries are unremarkable. IMPRESSION: Approximately 6 mm aneurysm at the right ICA diameter/M1 junction. Otherwise no acute abnormality of the CTA head/neck. NASCET criteria was used in interpretation of this exam?
[2021-05-23 19:47] VITALS: RESP 18
[2021-05-23 20:15] VITALS: BP 147/79; PULSE 75
== END 2021-05-23 20:15 | disposition home or self-care (01) ==
LOC: EC 16:32
DX: I67.1 Cerebral aneurysm, nonruptured (principal); I12.9 Hypertensive chronic kidney disease with stage 1 through stage 4 chronic kidney disease, or unspecified chronic kidney disease; N18.30 Chronic kidney disease, stage 3 unspecified; K21.9 Gastro-esophageal reflux disease without esophagitis; M19.90 Unspecified osteoarthritis, unspecified site; G43.909 Migraine, unspecified, not intractable, without status migrainosus; D63.1 Anemia in chronic kidney disease; F32.9 Major depressive disorder, single episode, unspecified; F41.9 Anxiety disorder, unspecified; Z79.51 Long term (current) use of inhaled steroids; Z79.82 Long term (current) use of aspirin; Z79.899 Other long term (current) drug therapy; Z86.718 Personal history of other venous thrombosis and embolism; Z87.440 Personal history of urinary (tract) infections; Z88.2 Allergy status to sulfonamides; Z88.5 Allergy status to narcotic agent
CPT/HCPCS: 36415; 70496; 70498; 80048; 85025; 99284

== ENCOUNTER → 2021-05-23 | Outpatient (CLI) | payer MEDICARE ==
--- NOTE | 2021-05-23 13:04 | CT ---
EXAMINATION TYPE: CT brain wo con DATE OF EXAM: 05/23/2021 COMPARISON: 03/02/2016 HISTORY: Fall with head injury today. CT DLP: 1032.3 mGycm Automated exposure control for dose reduction was used. FINDINGS: Mild generalized degenerative change. No midline shift or mass effect. There is no evidence of acute hemorrhage. Calvarium intact. Craniocervical junction maintained. Sella turcica has a normal appearance. There is nonspecific white matter changes seen. The globes are symmetric and. No significant changes of sinusitis. There is nodular prominence the right internal carotid artery highly suspicious for an aneurysm. IMPRESSION: 1. Degenerative and nonspecific white matter changes most typical remote white matter ischemia. 2. Nodular prominence of the distal right ICA compatible with aneurysm measuring approximately 8 mm. Correlate with follow-up MRA [facility] of [place]
== END | disposition home or self-care (01) ==
LOC: RADCTMAIN 12:15
PROVIDERS: ATTEND Physician Assistant
DX: S09.90XA Unspecified injury of head, initial encounter (principal)
CPT/HCPCS: 70450

== ENCOUNTER → 2021-06-17 | Outpatient (CLI) | payer MEDICARE ==
--- NOTE | 2021-06-18 10:54 | MM ---
Reason for exam: screening (asymptomatic). Last mammogram was performed 1 year ago. History: Patient is postmenopausal, has history of other cancer at age 46, and is nulliparous. Family history of breast cancer in aunt. Radiation therapy of the left breast, 2002. Chemotherapy. Taking estrogen for 10 years beginning at age 65. Took progesterone for 10 years. Physical Findings: A clinical breast exam by your physician is recommended on an annual basis and results should be correlated with mammographic findings. MG 3D Screening Mammo W/Cad Bilateral CC and MLO view(s) were taken. Prior study comparison: June 03, 2020, bilateral MG 3d screening mammo w/cad. April 26, 2019, bilateral MG 3d screening mammo w/cad. The breast tissue is heterogeneously dense. This may lower the sensitivity of mammography. Coarse calcifications left breast. There is no discrete abnormality. No significant changes when compared with prior studies. ASSESSMENT: Benign, BI-RAD 2 RECOMMENDATION: Routine screening mammogram of both breasts in 1 year.
== END | disposition home or self-care (01) ==
LOC: RADMAMWWP 10:47
PROVIDERS: ATTEND Obstetrics & Gynecology
DX: Z12.31 Encounter for screening mammogram for malignant neoplasm of breast (principal); Z80.3 Family history of malignant neoplasm of breast; Z78.0 Asymptomatic menopausal state
CPT/HCPCS: 77063; 77067

== ENCOUNTER → 2021-11-21 | Outpatient (CLI) | payer MEDICARE ==
[~2021-11-21] MED LIST: SODIUM CHLORIDE 0.9% 50 ML IVPB ONE; SODIUM CHLORIDE 0.9% 500 ML 500 ML in EMPTY BAG 1 BAG IV PRN; SOTROVIMAB (EUA) 500 MG in SODIUM CHLORIDE 0.9% 100 ML IVPB ONE
[2021-11-21 13:33] VITALS: TEMP 99.2
[2021-11-21 14:12] VITALS: BP 178/84; PULSE 69; RESP 16
== END ==
LOC: PROCWHC3 12:51
PROVIDERS: ATTEND Nurse Practitioner Family
DX: U07.1 COVID-19 (principal); D84.9 Immunodeficiency, unspecified; N18.9 Chronic kidney disease, unspecified; I25.10 Atherosclerotic heart disease of native coronary artery without angina pectoris; Z88.2 Allergy status to sulfonamides; Z88.5 Allergy status to narcotic agent
CPT/HCPCS: 96360; Q0247; M0247

== ENCOUNTER → 2023-06-21 | Outpatient (CLI) | payer MEDICARE ==
--- NOTE | 2023-06-23 14:50 | MM ---
Reason for Exam: Screening (asymptomatic). Last screening mammogram was performed 12 month(s) ago. Patient History: Menarche at age 10. Patient has no children. Left ovary removed at age 33. Right ovary removed at age 33. Hysterectomy at age 33. Postmenopausal. Other cancer, age 46. Currently using Estrogen, beginning at age 63 for 2 years. Patient used Progesterone for 2 years. Chemotherapy. 2002, Radiation Therapy on the left side. Maternal aunt had breast cancer. Risk Values: Mayte 5 year model risk: 1.9%. NCI Lifetime model risk: 5.9%. Prior Study Comparison: 06/03/2020 Bilateral Screening Mammogram, [facility]. 06/17/2021 Bilateral Screening Mammogram, [facility]. 06/18/2022 Bilateral MG 3D screening mammo w/cad, [facility]. Tissue Density: The breast tissue is heterogeneously dense. This may lower the sensitivity of mammography. Findings: Analyzed By CAD. No significant changes when compared with prior studies. No discrete abnormality. Overall Assessment: Benign, BI-RAD 2 Management: Screening Mammogram of both breasts in 1 year. Electronically signed and approved by: Nahun Toussaint M.D. Radiologis
== END | disposition home or self-care (01) ==
LOC: RADMAMWWP 13:18
PROVIDERS: ATTEND Obstetrics & Gynecology
DX: Z12.31 Encounter for screening mammogram for malignant neoplasm of breast (principal); Z78.0 Asymptomatic menopausal state; Z80.3 Family history of malignant neoplasm of breast
CPT/HCPCS: 77063; 77067

== ENCOUNTER 2024-02-09 07:27 | Inpatient (IN) | payer MEDICARE ==
--- NOTE | 2024-02-09 08:23 | ED ---
General Adult HPI - General Chief complaint: Abdominal Pain Stated complaint: abd pain Time Seen by Provider: 02/09/24 08:02 Source: patient, RN notes reviewed, old records reviewed Mode of arrival: wheelchair Limitations: no limitations - History of Present Illness Initial comments: Patient is a 68-year-old female who presents emergency department complaining of abdominal pain. Pain started approximately 6 AM. I evaluated the patient at a pproximately 8:02 AM when she was placed in a room. States that it is periumbilical in nature. Denies any change in bowel movements. Does endorse nausea with it but no episodes of emesis. Does have a history of hysterectomy, appendectomy. No known sick contacts. Last bowel movement was earlier today. Has a history of hypertension, acid reflux, cancer, thyroid disease. Denies any fevers, chills, sick contacts. Denies any urinary complaints. Presents for further evaluation at this time. - Related Data Home Medications Medication Instructions Recorded Confirmed Levothyroxine Sodium [Synthroid] 100 mcg PO DAILY 06/26/15 02/09/24 Aspirin EC [Ecotrin Low Dose] 81 mg PO HS 05/23/21 02/09/24 Calcium Carbonate [Calcium] 600 mg PO W/SUPPER 05/23/21 02/09/24 Cetirizine HCl [Zyrtec] 10 mg PO DAILY 05/23/21 02/09/24 Estradiol Cream [Estrace Cream 1 gram VAGINAL HS 05/23/21 02/09/24 0.01%] Fluticasone Propion/Salmeterol 1 puff INHALATION RT-BID 05/23/21 02/09/24 [Advair 250-50 Diskus] Metoprolol Succinate (ER) [Toprol 100 mg PO DAILY 05/23/21 02/09/24 Xl] Montelukast [Singulair] 10 mg PO HS 05/23/21 02/09/24 Proctocort 30mg Suppository 30 mg RECTAL HS PRN 05/23/21 02/09/24 Rosuvastatin Calcium 10 mg PO HS 05/23/21 02/09/24 Albuterol Sulfate [Albuterol 1 - 2 puff PO RT-Q6H PRN 02/09/24 02/09/24 Sulfate Hfa] Carboxymethylcellulose Sodium 1 - 2 drop BOTH EYES DIRECTED 02/09/24 02/09/24 [Refresh Tears] PRN Lifitegrast [Xiidra] 1 drop BOTH EYES BID 02/09/24 02/09/24 lisinopriL [Prinivil] 10 mg PO DAILY 02/09/24 02/09/24 Allergies Allergy/AdvReac Type Severity Reaction Status Date / Time Sulfa (Sulfonamide Allergy Unknown Verified 02/09/24 09:36 Antibiotics) Childhood codeine AdvReac Nausea Verified 02/09/24 09:36 hydrocodone bitartrate AdvReac Nausea Verified 02/09/24 09:36 [From [place]] Review of Systems ROS Statement: Those systems with pertinent positive or pertinent negative responses have been documented in the HPI. Review of Systems: CONST: Denies fever EYES: Denies blurry vision ENT: Denies nasal congestion C/V: Denies Chest pain RESP: Denies shortness of breath GI: Endorses abdominal pain : Denies dysuria SKIN: Denies rash. MSK: Denies joint pain. NEURO: Denies headache ROS Other: All systems not noted in ROS Statement are negative. Past Medical History Past Medical History: Blood Disorder, Cancer, Deep Vein Thrombosis (DVT), GERD/Reflux, Hypertension, Musculoskeletal Disorder, Osteoarthritis (OA), Renal Disease, Thyroid Disorder Additional Past Medical History / Comment(s): 06/26/15 Pt is a direct admission for chemotherapy. She is scheduled for her 3rd cycle. She intends to have a bone marrow transplant soon. Other HX: Ddiffuse large B-cell lymphoma -first diagnoses 12 yrs ago and pt was been doing well since that time. Then on 04/16/15 pt had sinus pressure a mass was discovered and a bx performed at [facility] which confirmed diffuse large B cell lymphoma- pt has begun chemo (RD_EPOCH) at [facility] after which she ended up at [facility] with admission 05/05/15 due to fatigue, weakness, nausea, severe hyponatremia (chronic) ,hypocloremia, hypokalemia, hypomagnesium, anemia, pancytopenia, chemo induced neutropenia, UTI. Pt then decided to have chemo here-locally. She has had 2 doses of EOPCH with Rituxan so far. Additional hx of: DVT L axillae yrs ago, migraines, stage 3 kidney disease, antiphospholipid antibody syndrome with hypercoagulable state, anemia of chronic kidney disease, SLE, paresthesia, peripheral neuropathy bilateral engle ds, feet and some numbness in face which she attributes to chemo and nasal surgery, pt is on lipitor not for elevated lipids but due to lupus potentially causing heart dx. Bone marrow transplant 2016 History of Any Multi-Drug Resistant Organisms: None Reported Past Surgical History: Hysterectomy Additional Past Surgical History / Comment(s): 02/[address] [facility], 05/29/15 PICC line insertion. Other SX HX: tumor removed from left arm from 1st time of lymphoma, 04/16/15 sinus bx, yrs ago mediport L chest which never worked and was removed. Past Anesthesia/Blood Transfusion Reactions: No Reported Reaction Past Psychological History: Anxiety, Depression Smoking Status: Never smoker Past Alcohol Use History: None Reported Past Drug Use History: None Reported - Past Family History Father Family Medical History: Cancer Additional Family Medical History / Comment(s): prostate CA Mother Family Medical History: No Reported History Brother(s) Family Medical History: Myocardial Infarction (CA) General Exam - General Exam Comments Initial Comments: General: Appears in moderate distress secondary to abdominal pain. HEAD: Normal with no signs of head trauma. EYES: PERRLA, EOMI, conjunctiva normal, no discharge. ENT: Hearing grossly intact, normal oropharynx. RESPIRATORY: Clear breath sounds bilaterally. No wheezes, rales, or rhonchi. C/V: Regular rate and rhythm. S1 and S2 auscultated, no edema, peripheral pulses 2+ and intact throughout ABD: Abdomen is soft, nondistended. Tender to palpation periumbilically and in the left lower quadrant. No guarding, rebound tenderness, peritoneal signs. EXT: Normal range of motion, no obvious deformity SKIN: No rashes or lesions observed on exposed skin. NEURO: Alert and oriented x 4. Limitations: no limitations Course Vital Signs 02/09/24 02/09/24 02/09/24 07:31 08:47 10:00 Temperature 97.6 F 98.9 F 98 F Pulse Rate 64 62 68 Respiratory 18 14 14 Rate Blood Pressure 171/90 171/77 189/79 O2 Sat by Pulse 98 93 L 100 Oximetry 02/09/24 12:59 Temperature Pulse Rate 65 Respiratory 16 Rate Blood Pressure 136/81 O2 Sat by Pulse 100 Oximetry Medical Decision Making - Medical Decision Making Was pt. sent in by a medical professional or institution (ELIF Burgess, [employer], urgent care, hospital, or fpc...) When possible be specific @ -No Did you speak to anyone other than the patient for history (EMS, parent, family, police, friend...)? What history was obtained from this source @ -No Did you review nursing and triage notes (agree or disagree)? Why? @ -I reviewed and agree with nursing and triage notes Were old charts reviewed (outside hosp., previous admission, EMS record, old EKG, old radiological studies, urgent care reports/EKG's, fpc records)? Report findings @ -Old charts reviewed Differential Diagnosis (chest pain, altered mental status, abdominal pain women, abdominal pain men, vaginal bleeding, weakness, fever, dyspnea, syncope, headache, dizziness, GI bleed, back pain, seizure, CVA, palpatations, mental health, musculoskeletal)? @ -Differential Abdominal Pain Women: Appendicitis, Cholecystitis, diverticulosis, ischemic bowel, pancreatitis, hepatitis, UTI, gastroenteritis, AAA, incarcerated hernia, bowel obstruction, constipation, inflammatory bowel, hepatitis, peptic ulcer disease, splenic infarction, perforated viscus, vulvitis, ovarian torsion, PID, kidney stone, placenta abruption, this is not meant to be an all-inclusive list EKG interpreted by me (3pts min.). @ -As above X-rays interpreted by me (1pt min.). @ -None done CT interpreted by me (1pt min.). @ -CT imaging shows findings consistent with high-grade small bowel obstruction. U/S interpreted by me (1pt. min.). @ -None done What testing was considered but not performed or refused? (CT, X-rays, U/S, labs)? Why? @ -None What meds were considered but not given or refused? Why? @ -None Did you discuss the management of the patient with other professionals (professionals i.e. ELIF Burgess, [employer], lab, RT, psych nurse, licensed social worker, disc inspector, teacher, chief diversity officer, pillowcase turner)? Give summary @ -I spoke with on-call surgeon, Dr. Dodson who requested patient be made a medical admission, but otherwise was in agreement with plan for n.p.o., empiric antibiotics, NG tube. I spoke with the patient's PCP, Dr. Espinosa who accepted the patient as a medical admission. Was smoking cessation discussed for >3mins.? @ -No Was critical care preformed (if so, how long)? @ -No Were there social determinants of health that impacted care today? How? (Homelessness, low income, unemployed, alcoholism, drug addiction, transportation, low edu. Level, literacy, decrease access to med. care, [place] [facility], r ehab)? @ -No Was there de-escalation of care discussed even if they declined (Discuss DNR or withdrawal of care, Hospice)? DNR status @ -No What co-morbidities impacted this encounter? (DM, HTN, Smoking, COPD, CAD, Cancer, CVA, ARF, Chemo, Hep., AIDS, mental health diagnosis, sleep apnea, morbid obesity)? @ -None Was patient admitted / discharged? Hospital course, mention meds given and route, prescriptions, significant lab abnormalities, going to OR and other pertinent info. @ -Based on the patient's presentation and physical exam, presents emergency department complaining of sudden onset abdominal pain in the mid to lower abdomen. Associate with nausea. No other complaints. Symptoms have been ongoing for approximately 2 hours. We will obtain abdominal laboratory studies, as well as screening EKG and CT abdomen pelvis. Patient be symptomatically treated with IV fluids, Zofran, Protonix, morphine. Patient was in agreement this plan. Vital signs within acceptable limits. Patient's laboratory studies are within acceptable limits. EKG shows no signs of acute ischemia. CT abdomen pelvis shows a high-grade small bowel obstruction as well as findings consistent with esophagitis/gastritis. At this time, NG tube was placed, blood cultures and empiric Zosyn started. Patient made NPO. I spoke with the on-call surgeon, Dr. Castelan who was in agreement with this plan but requested patient be made a medical admission. I spoke with patient's PCP Dr. Boone who accepted the admission. Patient was in agreement this plan. She will be admitted for further management. Undiagnosed new problem with uncertain prognosis? @ -No Drug Therapy requiring intensive monitoring for toxicity (Heparin, Nitro, Insulin, Cardizem)? @ -No Were any procedures done? @ -No Diagnosis/symptom? @ -Small bowel obstruction Acute, or Chronic, or Acute on Chronic? @ -Acute Uncomplicated (without systemic symptoms) or Complicated (systemic symptoms)? @ -Complicated Side effects of treatment? @ -None Exacerbation, Progression, or Severe Exacerbation] @ -No Poses a threat to life or bodily function? @ -Yes - Lab Data Result diagrams: 02/09/24 08:39 02/09/24 08:39 Lab Results 02/09/24 02/09/24 02/09/24 Range/Units 08:39 08:39 08:39 WBC 7.1 (3.8-10.6) k/uL RBC 3.58 L (3.80-5.40) m/uL Hgb 11.6 (11.4-16.0) gm/dL Hct 35.7 (34.0-46.0) % MCV 99.6 (80.0-100.0) fL MCH 32.5 (25.0-35.0) pg MCHC 32.7 (31.0-37.0) g/dL RDW 13.0 (11.5-15.5) % Plt Count 248 (150-450) k/uL MPV 7.6 Neutrophils % (Manual) 65 % Lymphocytes % (Manual) 28 % Monocytes % (Manual) 6 % Eosinophils % (Manual) 1 % Neutrophils # (Manual) 4.62 (1.3-7.7) k/uL Lymphocytes # (Manual) 1.99 (1.0-4.8) k/uL Monocytes # (Manual) 0.43 (0-1.0) k/uL Eosinophils # (Manual) 0.07 (0-0.7) k/uL Nucleated RBCs 0 (0-0) /100 WBC Manual Slide Review Performed PT (10.0-12.5) sec INR (<1.2) APTT (22.0-30.0) sec Sodium 137 (137-145) mmol/L Potassium 4.0 (3.5-5.1) mmol/L Chloride 104 (98-107) mmol/L Carbon Dioxide 28 (22-30) mmol/L Anion Gap 5 mmol/L BUN 32 H (7-17) mg/dL Creatinine 0.99 (0.52-1.04) mg/dL Est GFR (CKD-EPI)AfAm 67 (>60 ml/min/1.73 sqM) Est GFR (CKD-EPI)NonAf 58 (>60 ml/min/1.73 sqM) Glucose 132 H (74-99) mg/dL Plasma Lactic Acid Jimi 1.0 (0.7-2.0) mmol/L Calcium 9.4 (8.4-10.2) mg/dL Magnesium (1.6-2.3) mg/dL Total Bilirubin 0.4 (0.2-1.3) mg/dL AST 27 (14-36) U/L ALT 20 (4-34) U/L Alkaline Phosphatase 63 (38-126) U/L Total Protein 6.2 L (6.3-8.2) g/dL Albumin 3.9 (3.5-5.0) g/dL Amylase 65 (30-110) U/L Lipase 57 (23-300) U/L Urine Color Urine Appearance (Clear) Urine pH (5.0-8.0) Ur Specific [place] (1.001-1.035) Urine Protein (Negative) Urine Glucose (UA) (Negative) Urine Ketones (Negative) Urine Blood (Negative) Urine Nitrite (Negative) Urine Bilirubin (Negative) Urine Urobilinogen (<2.0) mg/dL Ur Leukocyte Esterase (Negative) 02/09/24 02/09/24 02/09/24 Range/Units 08:39 09:28 09:29 WBC (3.8-10.6) k/uL RBC (3.80-5.40) m/uL Hgb (11.4-16.0) gm/dL Hct (34.0-46.0) % MCV (80.0-100.0) fL MCH (25.0-35.0) pg MCHC (31.0-37.0) g/dL RDW (11.5-15.5) % Plt Count (150-450) k/uL MPV Neutrophils % (Manual) % Lymphocytes % (Manual) % Monocytes % (Manual) % Eosinophils % (Manual) % Neutrophils # (Manual) (1.3-7.7) k/uL Lymphocytes # (Manual) (1.0-4.8) k/uL Monocytes # (Manual) (0-1.0) k/uL Eosinophils # (Manual) (0-0.7) k/uL Nucleated RBCs (0-0) /100 WBC Manual Slide Review PT 10.2 (10.0-12.5) sec INR 0.9 (<1.2) APTT 22.5 (22.0-30.0) sec Sodium (137-145) mmol/L Potassium (3.5-5.1) mmol/L Chloride (98-107) mmol/L Carbon Dioxide (22-30) mmol/L Anion Gap mmol/L BUN (7-17) mg/dL Creatinine (0.52-1.04) mg/dL Est GFR (CKD-EPI)AfAm (>60 ml/min/1.73 sqM) Est GFR (CKD-EPI)NonAf (>60 ml/min/1.73 sqM) Glucose (74-99) mg/dL Plasma Lactic Acid Jimi (0.7-2.0) mmol/L Calcium (8.4-10.2) mg/dL Magnesium 1.9 (1.6-2.3) mg/dL Total Bilirubin (0.2-1.3) mg/dL AST (14-36) U/L ALT (4-34) U/L Alkaline Phosphatase (38-126) U/L Total Protein (6.3-8.2) g/dL Albumin (3.5-5.0) g/dL Amylase (30-110) U/L Lipase (23-300) U/L Urine Color Colorless Urine Appearance Clear (Clear) Urine pH 7.5 (5.0-8.0) Ur Specific [place] 1.012 (1.001-1.035) Urine Protein Negative (Negative) Urine Glucose (UA) Negative (Negative) Urine Ketones Negative (Negative) Urine Blood Negative (Negative) Urine Nitrite Negative (Negative) Urine Bilirubin Negative (Negative) Urine Urobilinogen <2.0 (<2.0) mg/dL Ur Leukocyte Esterase Negative (Negative) - EKG Data -: EKG Interpreted by Me EKG Comments: 12-lead Electrocardiogram Interpretation Note EKG was reviewed and interpreted by myself. 12-lead ECG performed at 0856 is interpreted by me as revealing sinus bradycardia with first-degree AV block and incomplete right bundle branch block at a rate of 59 beats per minute. [place] is normal. MS interval is 222 ms, QRS durations 106 ms, QTc is 487 ms.. There were no ST or T wave abnormalities to suggest myocardial ischemia or injury. R wave progression across the precordium was satisfactory. By my interpretation this EKG is non-diagnostic for acute ischemia. Incomplete right bundle branch block present on EKG from March 2015. Disposition Clinical Impression: SBO (small bowel obstruction) Disposition: ADMITTED IP TO THIS HOSP Condition: Stable Time of Disposition: 10:45
[2024-02-09] MEDS: SODIUM CHLORIDE 0.9% 1,000 ML IV STA ×2 (08:41→10:56)
[2024-02-09] MEDS: ONDANSETRON 4 MG/2 ML VIAL IVP STA (08:41)
[2024-02-09] MEDS: MORPHINE SULFATE 4 MG/ML SYRINGE IVP STA (08:42)
[2024-02-09] MEDS: PANTOPRAZOLE 40 MG/10 ML VIAL IVP STA (08:43)
[2024-02-09 08:55] LABS: HCT 35.7 % (34.0-46.0); HGB 11.6 gm/dL (11.4-16.0); MCH 32.5 pg (25.0-35.0); MCHC 32.7 g/dL (31.0-37.0); MCV 99.6 fL (80.0-100.0); Mean Platelet Volume 7.6; Platelet Count 248 k/uL (150-450); RBC 3.58 m/uL (3.80-5.40); WBC 7.1 k/uL (3.8-10.6)
[2024-02-09 09:04] LABS: ALT 20 U/L (4-34); AST 27 U/L (14-36); African American GFR (CKD) 67 (>60 ml/min/1.73 sqM); Albumin 3.9 g/dL (3.5-5.0); Alkaline Phosphatase 63 U/L (38-126); Amylase 65 U/L (30-110); Anion Gap 5 mmol/L; Blood Urea Nitrogen 32 mg/dL (7-17); Calcium 9.4 mg/dL (8.4-10.2); Carbon Dioxide 28 mmol/L (22-30); Chloride 104 mmol/L (98-107); Glucose 132 mg/dL (74-99); Lipase 57 U/L (23-300); Non-African American GFR(CKD) 58 (>60 ml/min/1.73 sqM); Sodium 137 mmol/L (137-145); Total Bilirubin 0.4 mg/dL (0.2-1.3); Total Protein 6.2 g/dL (6.3-8.2)
[2024-02-09 10:03] LABS: Eosinophils # (M) 0.07 k/uL (0-0.7); Lymphocytes # (M) 1.99 k/uL (1.0-4.8); Monocytes # (M) 0.43 k/uL (0-1.0); Neutrophils # (M) 4.62 k/uL (1.3-7.7); Neutrophils % (M) 65 %; Nucleated Red Blood Cells 0 /100 WBC (0-0); Total Cells Counted 100
[2024-02-09 10:08] LABS: INR 0.9 (<1.2); Partial Thromboplastin Time 22.5 sec (22.0-30.0); Prothrombin Time 10.2 sec (10.0-12.5)
[2024-02-09 10:23] LABS: Appearance,Urine Clear (Clear); Bilirubin,Urine Negative (Negative); Blood,Urine Negative (Negative); Color,Urine Colorless; Glucose,Urine (UA) Negative (Negative); Ketones,Urine Negative (Negative); Leukocyte Esterase,Urine Negative (Negative); Nitrite,Urine Negative (Negative); PH, Urine 7.5 (5.0-8.0); Protein,Urine Negative (Negative); Specific Gravity,Urine 1.012 (1.001-1.035); Urobilinogen,Urine <2.0 mg/dL (<2.0)
--- NOTE | 2024-02-09 10:24 | CT ---
EXAMINATION TYPE: CT abdomen pelvis w con DATE OF EXAM: 02/09/2024 COMPARISON: 07/15/2016 HISTORY: 68-year-old female Abdominal pain, hx B cell lymphoma, bone marrow transplant. TECHNIQUE: Contiguous axial scanning of the abdomen and pelvis following administration of 80 mL Isov ue 300 IV contrast. Delayed images through the kidneys and coronal/sagittal reconstructions performe d. CT DLP: 660 mGycm Automated exposure control for dose reduction was used. FINDINGS: Heart normal size without pericardial effusion. Minimal strandy basilar atelectasis without pleural effusion. Some retained fluid in the distal esophagus. Circumferential wall thickening distal esophagus. No focal liver lesion. Portal venous system is patent. No biliary ductal dilatation. Gallbladder, adrenal glands within normal limits. Pancreas is atrophic. Bilateral renal cortical cysts measuring up to 3.2 cm on the right and 2.5 cm on the left. Some of th juan show varying degrees of internal complication with hemorrhagic and proteinaceous debris. Small fatty umbilical hernia. Some annular narrowing and thickening at the distal gastric body and antrum probably due to nondisten tion. Correlate with direct visualization when able to exclude lymphoma involvement of the gastric wa ll. The majority of the colon is entirely collapsed and there is a clustered length of the fluid distende d small bowel located within the mid and right side of the abdomen dilated up to 3.1 cm with moderate to severe associated mesenteric edema and mild interloop free fluid. At least one transition point i s noted on axial image 47. Mild abdominal and pelvic ascites is present. No free air. Scattered colonic diverticulosis especially in the sigmoid colon. Bladder urine distended. Uterus surgically absent. Ovaries not well seen. Fatty matrix hemangioma T10 vertebral body. No osseous destructive process. IMPRESSION: 1. HIGH-GRADE SMALL BOWEL OBSTRUCTION LOCATED IN THE RIGHT SIDE OF THE ABDOMEN. LOOPS DILATED UP TO 3 .1 CM WITH MODERATE TO SEVERE REACTIVE MESENTERIC EDEMA AND MILD FREE FLUID. GIVEN DILATED BOWEL LOCA LIZED TO THE RIGHT SIDE OF THE ABDOMEN, A CLOSED LOOP OBSTRUCTION IS NOT EXCLUDED. 2. SOME ANNULAR NARROWING AND THICKENING OF THE DISTAL GASTRIC BODY AND ANTRUM PROBABLY DUE TO NONDIS TENTION. DIRECT VISUALIZATION CAN BE CONSIDERED WHEN PATIENT ABLE TO EXCLUDE A NEOPLASTIC ETIOLOGY. 3. SOME FLUID RETAINED IN THE DISTAL ESOPHAGUS WITH CIRCUMFERENTIAL WALL THICKENING. CONSIDER ESOPHAG ITIS INCLUDING REFLUX ESOPHAGITIS.
[2024-02-09] MEDS: MORPHINE SULFATE 4 MG/ML SYRINGE IVP PRN (10:51)
[2024-02-09] MEDS: HYDROmorphone 1 MG/ML 1 ML SYRINGE IVP STA (11:08)
[2024-02-09] MEDS ORDERED: NALOXONE 0.4 MG/ML 1 ML VIAL IV PRN (11:17)
--- NOTE | 2024-02-09 11:44 | XR ---
EXAMINATION TYPE: XR chest 1V confirm [facility] DATE OF EXAM: 02/09/2024 COMPARISON: 10/27/2017 INDICATION: Line placement TECHNIQUE: Single frontal view of the chest is obtained. Images from the upper thorax to the upper ab domen. Lung apices are out of the [id number]. FINDINGS: The heart size is normal. The pulmonary vasculature is normal. The visualized Lungs are clear. Nasogastric tube transverses the thorax with tip in the left upper quadrant of the abdomen. IMPRESSION: 1. No acute pulmonary process within the [id number]. 2. Nasogastric tube tip within the left upper quadrant abdomen
[2024-02-09] MEDS: PIPERACILLIN-TAZOBACTAM 3.375 GM in SODIUM CHLORIDE 0.9% 100 ML IVPB STA (11:59)
--- NOTE | 2024-02-09 12:32 | P.GSCN ---
History of Present Illness Consult date: 02/09/24 History of present illness: CHIEF COMPLAINT: Abdominal pain HISTORY OF PRESENT ILLNESS: This is a 68-year-old female who presented with complaints of abdominal pain that started at 6:00 this morning. Patient reports that she had been eating a breakfast bar and then suddenly had severe pain 10 out of 10 in the umbilicus area. She reports feeling nauseated. She has been having a small amount of flatus. She reports her bowel movements have been normal. She came to the ER for further evaluation and was found to have a high- grade small bowel obstruction noted on CT scan. Patient has NG tube in place. She reports no flatus since NG tube placed. She continues to have abdominal pain around the umbilicus. Patient's past surgical history does include a hysterectomy and appendectomy. Also with history of B-cell lymphoma status post bone marrow transplant. Patient denies any prior history of bowel obstruction. PAST MEDICAL HISTORY: See list. PAST SURGICAL HISTORY: See list. MEDICATIONS: See list. ALLERGIES: See list. SOCIAL HISTORY: No illicit drug use. REVIEW OF SYSTEMS: CONSTITUTIONAL: Denies fever or chills. HEENT: Denies blurred vision, vision changes, or eye pain. Denies hemoptysis ENDOCRINE: Denies heat or cold intolerance. CARDIOVASCULAR: Denies chest pain or pressure. RESPIRATORY: No shortness of breath. GASTROINTESTINAL: Denies abdominal pain. Denies nausea or vomiting. NEURO: Denies history of seizures. PSYCH: No depression or suicidal ideation HEMATOLOGIC: Denies bleeding disorders. LYMPHATIC: The patient denies any lumps and bumps around the neck. GENITOURINARY: Denies any blood in urine or increased urinary frequency. MUSCULOSKELETAL: Denies myalgias. Denies joint swelling. Denies decreased range of motion beyond patients baseline. SKIN: Denies pruitis. Denies rash. PHYSICAL EXAM: VITAL SIGNS: Reviewed GENERAL: Well-developed in no acute distress. HEENT: No sclera icterus. Extraocular movements grossly intact. Moist buccal mucosa. Head is atraumatic, normocephalic. Hears conversational speech. No nasal drainage. NECK: Supple without lymphadenopathy. CHEST: Non-labored respirations and equal bilateral excursions. CARDIOVASCULAR: Palpable 2+ radial pulses. ABDOMEN: Soft. Mildly distended. Tenderness with palpation at the umbilicus MUSCULOSKELETAL: No clubbing or cyanosis. NEUROLOGIC: No focal or lateralizing signs. Cranial nerves II through XII grossly intact. PSYCH: Appropriate affect. Alert and oriented to person, place and time. SKIN: Well perfused. Good skin turgor. LABORATORY DATA: WBC 7.1 Hgb 11.6 platelets 248 Sodium is 137 potassium is 4.0 creatinine 0.99 LFTs normal lactic acid 1.0 lipase 57 IMAGING: CT scan abdomen and pelvis results reported high-grade small bowel obstruction located in the right side of the abdomen loops dilated up to 3.1 cm. Some an nular narrowing and thickening of the distal gastric body and antrum probably due to nondistention. Direct visualization can be considered when patient able to exclude neoplastic etiology. Some fluid retained in the distal esophagus with circumferential wall thickening. Consider esophagitis including reflux esophagitis. ASSESSMENT: 1. High-grade small bowel obstruction 2. Prior history of abdominal surgeries 3. History of B-cell lymphoma status post bone marrow transplant at of PLAN: -Continue NG tube for decompression -Keep patient n.p.o. -Continue supportive care -Continue IV fluids -Further recommendations forthcoming per surgeon Physician C[employer] note has been reviewed by physician. Signing provider agrees with the documented findings, assessment, and plan of care. Past Medical History Past Medical History: Blood Disorder, Cancer, Deep Vein Thrombosis (DVT), GERD/Reflux, Hypertension, Musculoskeletal Disorder, Osteoarthritis (OA), Renal Disease, Thyroid Disorder Additional Past Medical History / Comment(s): 06/26/15 Pt is a direct admission for chemotherapy. She is scheduled for her 3rd cycle. She intends to have a bone marrow transplant soon. Other HX: Ddiffuse large B-cell lymphoma -first diagnoses 12 yrs ago and pt was been doing well since that time. Then on 04/16/15 pt had sinus pressure a mass was discovered and a bx performed at [facility] which confirmed diffuse large B cell lymphoma- pt has begun chemo (RD_EPOCH) at [facility] after which she ended up at [facility] with admission 05/05/15 due to fatigue, weakness, nausea, severe hyponatremia (chronic) ,hypocloremia, hypokalemia, hypomagnesium, anemia, pancytopenia, chemo induced neutropenia, UTI. Pt then decided to have chemo here-locally. She has had 2 doses of EOPCH with Rituxan so far. Additional hx of: DVT L axillae yrs ago, migraines, stage 3 kidney disease, antiphospholipid antibody syndrome with hypercoagulable state, anemia of chronic kidney disease, SLE, paresthesia, peripheral neuropathy bilateral hands, feet and some numbness in face which she attributes to chemo and nasal surgery, pt is on lipitor not for elevated lipids but due to lupus potentially causing heart dx. Bone marrow transplant 2016 History of Any Multi-Drug Resistant Organisms: None Reported Past Surgical History: Hysterectomy Additional Past Surgical History / Comment(s): 02/2015 bone marrow aspiration at [facility], 05/29/15 PICC line insertion. Other SX HX: tumor removed from left arm from 1st time of lymphoma, 04/16/15 sinus bx, yrs ago mediport L chest which ne claus worked and was removed. Past Anesthesia/Blood Transfusion Reactions: No Reported Reaction Past Psychological History: Anxiety, Depression Smoking Status: Never smoker Past Alcohol Use History: None Reported Past Drug Use History: None Reported - Past Family History Father Family Medical History: Cancer Additional Family Medical History / Comment(s): prostate CA Mother Family Medical History: No Reported History Brother(s) Family Medical History: Myocardial Infarction ([place]) Medications and Allergies Home Medications Medication Instructions Recorded Confirmed Type Levothyroxine Sodium [Synthroid] 100 mcg PO DAILY 06/26/15 02/09/24 History Aspirin EC [Ecotrin Low Dose] 81 mg PO HS 05/23/21 02/09/24 History Calcium Carbonate [Calcium] 600 mg PO W/SUPPER 05/23/21 02/09/24 History Cetirizine HCl [Zyrtec] 10 mg PO DAILY 05/23/21 02/09/24 History Estradiol Cream [Estrace Cream 1 gram VAGINAL HS 05/23/21 02/09/24 History 0.01%] Fluticasone Propion/Salmeterol 1 puff INHALATION RT-BID 05/23/21 02/09/24 History [Advair 250-50 Diskus] Metoprolol Succinate (ER) [Toprol 100 mg PO DAILY 05/23/21 02/09/24 History Xl] Montelukast [Singulair] 10 mg PO HS 05/23/21 02/09/24 History Proctocort 30mg Suppository 30 mg RECTAL HS PRN 05/23/21 02/09/24 History Rosuvastatin Calcium 10 mg PO HS 05/23/21 02/09/24 History Albuterol Sulfate [Albuterol 1 - 2 puff PO RT-Q6H PRN 02/09/24 02/09/24 History Sulfate Hfa] Carboxymethylcellulose Sodium 1 - 2 drop BOTH EYES DIRECTED 02/09/24 02/09/24 History [Refresh Tears] PRN Lifitegrast [Xiidra] 1 drop BOTH EYES BID 02/09/24 02/09/24 History lisinopriL [Prinivil] 10 mg PO DAILY 02/09/24 02/09/24 History Allergies Allergy/AdvReac Type Severity Reaction Status Date / Time Sulfa (Sulfonamide Allergy Unknown Verified 02/09/24 09:36 Antibiotics) Childhood codeine AdvReac Nausea Verified 02/09/24 09:36 hydrocodone bitartrate AdvReac Nausea Verified 02/09/24 09:36 [From [place]] Surgical - Exam Vital Signs Temp Pulse Resp BP Pulse Ox 97.6 F 64 18 171/90 98 02/09/24 07:31 02/09/24 07:31 02/09/24 07:31 02/09/24 07:31 02/09/24 07:31 Results - Labs 02/09/24 08:39 02/09/24 08:39 Abnormal Lab Results - Last 24 Hours (Table) 02/09/24 02/09/24 Range/Units 08:39 08:39 RBC 3.58 L (3.80-5.40) m/uL BUN 32 H (7-17) mg/dL Glucose 132 H (74-99) mg/dL Total Protein 6.2 L (6.3-8.2) g/dL Diabetes panel 02/09/24 Range/Units 08:39 Sodium 137 (137-145) mmol/L Potassium 4.0 (3.5-5.1) mmol/L Chloride 104 (98-107) mmol/L Carbon Dioxide 28 (22-30) mmol/L BUN 32 H (7-17) mg/dL Creatinine 0.99 (0.52-1.04) mg/dL Glucose 132 H (74-99) mg/dL Calcium 9.4 (8.4-10.2) mg/dL AST 27 (14-36) U/L ALT 20 (4-34) U/L Alkaline Phosphatase 63 (38-126) U/L Total Protein 6.2 L (6.3-8.2) g/dL Albumin 3.9 (3.5-5.0) g/dL Calcium panel 02/09/24 Range/Units 08:39 Calcium 9.4 (8.4-10.2) mg/dL Albumin 3.9 (3.5-5.0) g/dL Pituitary panel 02/09/24 Range/Units 08:39 Sodium 137 (137-145) mmol/L Potassium 4.0 (3.5-5.1) mmol/L Chloride 104 (98-107) mmol/L Carbon Dioxide 28 (22-30) mmol/L BUN 32 H (7-17) mg/dL Creatinine 0.99 (0.52-1.04) mg/dL Glucose 132 H (74-99) mg/dL Calcium 9.4 (8.4-10.2) mg/dL Adrenal panel 02/09/24 Range/Units 08:39 Sodium 137 (137-145) mmol/L Potassium 4.0 (3.5-5.1) mmol/L Chloride 104 (98-107) mmol/L Carbon Dioxide 28 (22-30) mmol/L BUN 32 H (7-17) mg/dL Creatinine 0.99 (0.52-1.04) mg/dL Glucose 132 H (74-99) mg/dL Calcium 9.4 (8.4-10.2) mg/dL Total Bilirubin 0.4 (0.2-1.3) mg/dL AST 27 (14-36) U/L ALT 20 (4-34) U/L Alkaline Phosphatase 63 (38-126) U/L Total Protein 6.2 L (6.3-8.2) g/dL Albumin 3.9 (3.5-5.0) g/dL
[2024-02-09] MEDS: LORazepam 2 MG/ML INJ IV STA (13:03)
--- NOTE | 2024-02-09 14:08 | XR ---
EXAMINATION TYPE: XR chest 1V confirm line [facility] DATE OF EXAM: 02/09/2024 COMPARISON: 02/09/2024 INDICATION: NG tube placement TECHNIQUE: Single frontal view of the chest is obtained. FINDINGS: The heart size is normal. The pulmonary vasculature is normal. There may be some mild by basilar infiltrates. This may be more so on the left. NG tube tip is in the left upper quadrant of the abdomen. IMPRESSION: 1. Minimal bibasilar infiltrates slightly greater on the left. Correlate for subsegmental atelectasis . 2. Nasogastric tube tip left upper quadrant of the abdomen
[2024-02-09] MEDS ORDERED: HYDROCORTISONE 2.5% RECTAL CREAM 30 GM TUBE RECTAL PRN (14:15)
[2024-02-09] MEDS ORDERED: ALBUTEROL NEBULIZED 2.5 MG/3 ML INHALATION PRN (14:15)
[2024-02-09] MEDS ORDERED: ARTIFICIAL TEARS-HYPROMELLOSE DROPS 15 ML BTL BOTH EYES PRN (14:15)
[2024-02-09] MEDS: PIPERACILLIN-TAZOBACTAM 3.375 GM in SODIUM CHLORIDE 0.9% 100 ML IVPB SCH (16:31)
[2024-02-09] MEDS: SYMBICORT 80-4.5 MCG INHALER INHALATION SCH (19:42)
[2024-02-09] MEDS: ESTRADIOL 0.1 MG/GM VAGINAL CREAM 42.5 GM TUBE VAGINAL SCH (20:45)
[2024-02-09] MEDS: ATORVASTATIN 20 MG TAB PO SCH (20:45)
[2024-02-09] MEDS: MONTELUKAST 10 MG TAB PO SCH (20:46)
[2024-02-09] MEDS: NON FORMULARY DRUG (Lifitegrast [Xiidra] 1 EACH Droperette) BOTH EYES SCH (22:45)
[2024-02-10] MEDS: ONDANSETRON 4 MG/2 ML VIAL IVP PRN (03:02)
[2024-02-10] MEDS: LEVOTHYROXINE 100 MCG TAB PO SCH (05:38)
--- NOTE | 2024-02-10 06:10 | P.HPIM ---
History of Present Illness H&P Date: 02/09/24 HISTORY OF PRESENT ILLNESS: 68-year-old woman my office patient who has an active history of rheumatoid arthritis, lupus, non-Hodgkin lymphoma, Previous history of deep venous thrombosis and pulmonary embolism, history of diffuse large B-cell lymphoma post bone marrow transplant also known to have recurrent history of anemia along with pancytopenia and neutropenia. She is known to have ongoing stage III chronic kidney disease and also active antiphospholipid antibody syndrome with hypercoagulation, on active treatment for peripheral neuropathy and known to be managed by rheumatology for rheumatoid arthritis and systemic lupus erythematous. Patient has been our office patient since. 89 very compliant with all her medical problem, medication and appointment. She presented to the emergency department at [facility] on 02/09/2024 because of sudden onset of mid abdominal pain developed paste mixer she had her coffee and light breakfast and all of a sudden developed to have intractable accelerated worsening sharp pain in the middle around the umbilical area following her pain she ended up having 2 bowel movement and her pain become much worse she felt much better when she lays down straight on the ground with stating her feet. After giving the pain over couple hours without any relief ended up coming to the emergency department where was seen and evaluated. She ended up having flat x-ray of the abdomen and CAT scan of the abdomen and pelvis which surprisingly showed high-grade small bowel obstruction located in the right side of the abdomen with loop dilated up to 3.1 cm with moderate to severe reactive mesenteric edema and mild free fluid also as she had some annular narrowing and thickening of the distal gastric body and antrum probably due to the distention can benefit from direct visualization eventually with an EGD and she had some fluid retained in the distal esophagus with circumferential wall thickening consistent with esophagitis and active reflux esophagitis. Her laboratory value shows no sign of anemia with hemoglobin of 11.6 also kidney function test have improved significantly from her regular borderline with creatinine 0.99.32 blood sugar was mildly elevated only with normal liver function test UA was negative lactic acid was 1.0. Patient was started on IV hydration, IV pain meds, NG tube was placed send an call general surgery who wanted patient to be admitted to medical floor them on consult. REVIEW OF SYSTEMS: CONSTITUTIONAL: Well-developed no acute respiratory distress. Has an NG tube in. EYES: No icterus sclerae, no conjunctivitis. EARS, NOSE, MOUTH, THROAT, and FACE: No sore throat, lymphadenopathy, carotid bruits or deformity. RESPIRATORY: No SOB cough or wheezes. CARDIOVASCULAR: No CP, Palpitation, PND, Orthopnea, or angina. GASTROINTESTINAL: Slightly distended abdomen with discomfort in the mid epigastric area and mid abdominal region area not able to find any rebound no bowel sounds. GENITOURINARY: Negative for Hematuria or UTI, no kidney stones. INTEGUMENT/BREAST: Negative for any muscular injury with mild osteoarthritis.. HEMATOLOGIC/LYMPHATIC: Negative for bleed or purpura. MUSCULOSKELTAL: Negative for Myalgia or arthralgia. NEURLOGICAL: No LOC, Sz or syncope, blurred vision dizziness or abnormality.. BEHAVIORAL/PSYCH: Negative. ENDOCRINE: Negative. PHYSICAL EXAMINATION: General Appearance: Alert, cooperative, no distress, appears stated age. Neck HEENT: Supple, no lymphadenopathy, no thyroid enlargement, no carotid bruits. Has NG tube in. Lungs: Clear to auscultation without crackles or wheezes no rhonchi, no deformity. Chest Wall: Chest wall normal expansion with deep inspiration no tenderness and no deformity was found on exam, no costochondral pain or discomfort. Heart: Regular rate and rhythm, S1, S2 normal, no murmur, rub or gallop. Back: Symmetric, no curvature, ROM normal, no CVA tenderness. Abdomen: Slightly distended abdomen with mild discomfort and tenderness in the mid abdominal region area with no bowel sounds. Extremities: Extremities normal, atraumatic, no cyanosis or edema. Pulses: 2+ and symmetric. Skin: Skin color, texture, tugor normal, no rashes or lesions. Neurologic: Alert oriented x3 cranial nerves II through XII intact, no motor deficit, no abnormal balance or gait. ASSESSMENT AND PLAN: _High-grade small bowel obstruction: NG tube, continue hydration and pain management patient just seen general surgery and with a slight mesenteric change in the wall patient to go for surgery. _Severe intractable nausea and vomiting: Continue Zofran with NG tube and hydration should feel better. _Highly grade slight abnormality and gastric area in the esophagus more consistent with may be something going on inside the lumen of the small intestine our stomach patient might require direct visualization if she is going to go for surgery that can be inspected during surgery otherwise patient might require an EGD. _History of rheumatoid arthritis and systemic lupus erythematous: Still seen rheumatology has not been on any active medication lately. _History of non-Hodgkin lymphoma still seen oncology and again has been doing well in remission at this point. _Active treatment for hypertension: Remain on lisinopril 10 mg a day along with metoprolol succinate 100 mg daily. _Hyperlipidemia: Resume rosuvastatin 10 mg daily. _Hypothyroidism: Will continue patient on Synthroid 100 mcg daily. _Activity manage reactive airway/asthma remain on Advair along with rescue inhaler. _GI prophylaxis: Will continue patient on pantoprazole IV. _DVT prophylaxis: Patient will be on Lovenox. CODE STATUS: Full code. Admit patient to the inpatient service for more than 2 night stay. Past Medical History Past Medical History: Blood Disorder, Cancer, Deep Vein Thrombosis (DVT), GERD/Reflux, Hypertension, Musculoskeletal Disorder, Osteoarthritis (OA), Renal Disease, Thyroid Disorder Additional Past Medical History / Comment(s): 06/26/15 Pt is a direct admission for chemotherapy. She is scheduled for her 3rd cycle. She intends to have a bone marrow transplant soon. Other HX: Ddiffuse large B-cell lymphoma -first diagnoses 12 yrs ago and pt was been doing well since that time. Then on 04/16/15 pt had sinus pressure a mass was discovered and a bx performed at [facility] which confirmed diffuse large B cell lymphoma- pt has begun chemo (RD_EPOCH) at [facility] after which she ended up at [facility] with admission 05/05/15 due to fatigue, weakness, nausea, severe hyponatremia (chronic) ,hypocloremia, hypokalemia, hypomagnesium, anemia, pancytopenia, chemo induced neutropenia, UTI. Pt then decided to have chemo here-locally. She has had 2 doses of EOPCH with Rituxan so far. Additional hx of: DVT L axillae yrs ago, migraines, stage 3 kidney disease, antiphospholipid antibody syndrome with hypercoagulable state, anemia of chronic kidney disease, SLE, paresthesia, peripheral neuropathy bilateral hands, feet and some numbness in face which she attributes to chemo and nasal surgery, pt is on lipitor not for elevated lipids but due to lupus potentially causing heart dx. Bone marrow transplant 2015 History of Any Multi-Drug Resistant Organisms: None Reported Past Surgical History: Hysterectomy Additional Past Surgical History / Comment(s): 02/2015 bone marrow aspiration at [facility], 05/29/15 PICC line insertion. Other SX HX: tumor removed from left arm from 1st time of lymphoma, 04/16/15 sinus bx, yrs ago mediport L chest which never worked and was removed. Past Anesthesia/Blood Transfusion Reactions: No Reported Reaction Past Psychological History: Anxiety, Depression Smoking Status: Never smoker Past Alcohol Use History: None Reported Past Drug Use History: None Reported - Past Family History Father Family Medical History: Cancer Additional Family Medical History / Comment(s): prostate CA Mother Family Medical History: No Reported History Brother(s) Family Medical History: Myocardial Infarction ([place]) Medications and Allergies Home Medications Medication Instructions Recorded Confirmed Type Levothyroxine Sodium [Synthroid] 100 mcg PO DAILY 06/26/15 02/09/24 History Aspirin EC [Ecotrin Low Dose] 81 mg PO HS 05/23/21 02/09/24 History Calcium Carbonate [Calcium] 600 mg PO W/SUPPER 05/23/21 02/09/24 History Cetirizine HCl [Zyrtec] 10 mg PO DAILY 05/23/21 02/09/24 History Estradiol Cream [Estrace Cream 1 gram VAGINAL HS 05/23/21 02/09/24 History 0.01%] Fluticasone Propion/Salmeterol 1 puff INHALATION RT-BID 05/23/21 02/09/24 History [Advair 250-50 Diskus] Metoprolol Succinate (ER) [Toprol 100 mg PO DAILY 05/23/21 02/09/24 History Xl] Montelukast [Singulair] 10 mg PO HS 05/23/21 02/09/24 History Proctocort 30mg Suppository 30 mg RECTAL HS PRN 05/23/21 02/09/24 History Rosuvastatin Calcium 10 mg PO HS 05/23/21 02/09/24 History Albuterol Sulfate [Albuterol 1 - 2 puff PO RT-Q6H PRN 02/09/24 02/09/24 History Sulfate Hfa] Carboxymethylcellulose Sodium 1 - 2 drop BOTH EYES DIRECTED 02/09/24 02/09/24 History [Refresh Tears] PRN Lifitegrast [Xiidra] 1 drop BOTH EYES BID 02/09/24 02/09/24 History lisinopriL [Prinivil] 10 mg PO DAILY 02/09/24 02/09/24 History Allergies Allergy/AdvReac Type Severity Reaction Status Date / Time Sulfa (Sulfonamide Allergy Unknown Verified 02/09/24 09:36 Antibiotics) Childhood codeine AdvReac Nausea Verified 02/09/24 09:36 hydrocodone bitartrate AdvReac Nausea Verified 02/09/24 09:36 [From [place]] Physical Exam Vitals: Vital Signs Temp Pulse Resp BP Pulse Ox 02/09/24 12:59 65 16 136/81 100 02/09/24 10:00 98 F 68 14 189/79 100 02/09/24 08:47 98.9 F 62 14 171/77 93 L 02/09/24 07:31 97.6 F 64 18 171/90 98 Intake and Output 02/08/24 02/09/24 02/09/24 22:59 06:59 14:59 Other: Weight 59.874 kg Results CBC & Chem 7: 02/09/24 08:39 02/09/24 08:39 Labs: Abnormal Lab Results - Last 24 Hours (Table) 02/09/24 02/09/24 Range/Units 08:39 08:39 RBC 3.58 L (3.80-5.40) m/uL BUN 32 H (7-17) mg/dL Glucose 132 H (74-99) mg/dL Total Protein 6.2 L (6.3-8.2) g/dL
--- NOTE | 2024-02-10 07:12 | P.HPADDEND ---
H&P Addendum H&P Addendum Date: 02/10/24 Extended discussion performed with patient regarding initial presentation of gastric outlet obstruction including bowel obstruction and hydronephrosis with pre-existing history of intra-abdominal cancer. Recommend upper endoscopy with biopsies to identify cause of initial gastric outlet obstruction. Patient agreed with proceeding with upper endoscopy with biopsies.
[2024-02-10] MEDS: lisinopriL 10 MG TAB PO SCH (08:01)
[2024-02-10] MEDS: PANTOPRAZOLE 40 MG/10 ML VIAL IV SCH (08:01)
[2024-02-10] MEDS: LORATADINE 10 MG TAB PO SCH (08:02)
[2024-02-10] MEDS: METOPROLOL SUCCINATE (ER) 100 MG TAB.ER.24H PO SCH (08:02)
[2024-02-10 11:24] LABS: Basophils # (A) 0.02 X 10*3/uL (0.00-0.10); Basophils % (A) 0.2 %; Eosinophils # (A) 0 X 10*3/uL (0.04-0.35); Eosinophils % (A) 0 %; HCT 42.9 % (37.2-46.3); HGB 13.5 g/dL (12.0-15.0); Lymphocytes # (A) 1.67 X 10*3/uL (0.90-5.00); Lymphocytes % (A) 14.2 %; MCH 31.9 pg (27.0-32.0); MCHC 31.5 g/dL (32.0-37.0); MCV 101.4 FL (80.0-97.0); Mean Platelet Volume 10.5 FL (9.5-12.2); Monocytes # (A) 1.49 X 10*3/uL (0.20-1.00); Monocytes % (A) 12.7 %; NRBC Per 100 WBC 0 X 10*3/uL (0.00-0.01); Neutrophils # (A) 8.51 X 10*3/uL (1.80-7.70); Neutrophils % (A) 72.6 %; Platelet Count 264 X 10*3/uL (140-440); RBC 4.23 X 10*6/uL (4.10-5.20); RDW 14.4 % (11.5-14.5); WBC 11.73 X 10*3/uL (4.50-10.00)
[2024-02-10 11:40] LABS: ALT 16 U/L (8-44); AST 24 U/L (13-35); Albumin 3.8 g/dL (3.8-4.9); Albumin/Globulin Ratio 1.81 Ratio (1.60-3.17); Alkaline Phosphatase 49 U/L (41-126); Amylase 138 U/L (23-121); BUN/Creat Ratio 21.54 Ratio (12.00-20.00); Chloride 107 mmol/L (96-109); Globulin 2.1 g/dL (1.6-3.3); Glucose 129 mg/dL (70-110); Potassium 4.9 mmol/L (3.5-5.5); Sodium 142 mmol/L (135-145); Total Bilirubin 0.3 mg/dL (0.3-1.2); Total Protein 5.9 g/dL (6.2-8.2)
--- NOTE | 2024-02-10 15:48 | P.PN ---
Subjective Progress Note Date: 02/10/24 CHIEF COMPLAINT: Small bowel obstruction HISTORY OF PRESENT ILLNESS: Surgical service following in regards to high-grade small bowel obstruction. Patient continues to report diffuse pain. She has nausea. She has NG tube in place. She denies any flatus or bowel movement. She is undergoing a small bowel follow-through series today. Afebrile. Mild tachycardia improved. WBC is up at 11.73 Hgb 13.5 creatinine 1.3. No significant output through NG tube PHYSICAL EXAM: VITAL SIGNS: Reviewed GENERAL: Well-developed in no acute distress. HEENT: No sclera icterus. Extraocular movements grossly intact. Moist buccal mucosa. Head is atraumatic, normocephalic. Hears conversational speech. No nasal drainage. NECK: Supple without lymphadenopathy. CHEST: Non-labored respirations and equal bilateral excursions. CARDIOVASCULAR: Palpable 2+ radial pulses. ABDOMEN: Soft. Mildly distended. Diffuse tenderness. MUSCULOSKELETAL: No clubbing or cyanosis. NEUROLOGIC: No focal or lateralizing signs. Cranial nerves II through XII grossly intact. PSYCH: Appropriate affect. Alert and oriented to person, place and time. SKIN: Well perfused. Good skin turgor. ASSESSMENT: 1. High-grade small bowel obstruction 2. Prior history of abdominal surgeries 3. History of B-cell lymphoma status post bone marrow transplant at [facility] PLAN: -Small bowel follow-through series to be completed today -Continue NG tube for decompression -Keep patient n.p.o. -Continue supportive care -Continue IV fluids -Further recommendations forthcoming per surgeon regarding surgical intervention Physician Psychologists note has been reviewed by physician. Signing provider agrees with the documented findings, assessment, and plan of care. Objective - Vital Signs Vital signs: Vital Signs Temp 98.3 F 02/10/24 14:00 Pulse 94 02/10/24 14:00 Resp 18 02/10/24 14:00 BP 122/82 02/10/24 14:00 Pulse Ox 99 02/10/24 14:00 FiO2 Intake & Output 02/09/24 02/10/24 02/10/24 18:59 06:59 18:59 Weight 59.874 kg Other: Voiding Method Bedside Commode # Voids 1 1 - Labs CBC & Chem 7: 02/10/24 07:27 02/10/24 07:34 Labs: Abnormal Lab Results - Last 24 Hours (Table) 02/10/24 02/10/24 Range/Units 07:27 07:34 WBC 11.73 H (4.50-10.00) X 10*3/uL MCV 101.4 H (80.0-97.0) FL MCHC 31.5 L (32.0-37.0) g/dL Neutrophils # 8.51 H (1.80-7.70) X 10*3/uL Monocytes # 1.49 H (0.20-1.00) X 10*3/uL Eosinophils # 0 L (0.04-0.35) X 10*3/uL BUN 28.0 H (9.0-27.0) mg/dL Est GFR (CKD-EPI) 44 L (>=60) BUN/Creatinine Ratio 21.54 H (12.00-20.00) Ratio Glucose 129 H (70-110) mg/dL Total Protein 5.9 L (6.2-8.2) g/dL Amylase 138 H (23-121) U/L
--- NOTE | 2024-02-10 16:24 | XR ---
EXAMINATION TYPE: XR abdomen 2V DATE OF EXAM: 02/10/2024 CLINICAL DATA: 68 year-old female small bowel obstruction, [facility] COMPARISON: CT 02/09/2024 FINDINGS: NG tube is in place. There may be a new right pleural effusion. No fay dilated small bowel loops are identified. No evidence for free intraperitoneal air. Possibil ity of colonic air. There are scattered vascular calcifications. IMPRESSION: NG tube is in place. No frankly dilated small bowel loops are seen. There remains paucity of colonic air.
[2024-02-10] MEDS: SODIUM CHLORIDE 0.9% 1,000 ML IV SCH (18:22)
[2024-02-10] MEDS: ONDANSETRON 4 MG/2 ML VIAL IVP SCH (23:37)
--- NOTE | 2024-02-11 06:20 | P.PN ---
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 She is known to have ongoing stage III chronic kidney disease and also active antiphospholipid antibody syndrome with hypercoagulation, on active treatment for peripheral neuropathy and known to be managed by rheumatology for rheumatoid arthritis and systemic lupus erythematous. Patient has been our office patient since. 89 very compliant with all her medical problem, medication and appointment. 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 After giving the pain over couple hours without any relief ended up coming to the emergency department where was seen and evaluated. She ended up having flat x-ray of the abdomen and CAT scan of the abdomen and pelvis which surprisingly showed high-grade small bowel obstruction located in the right side of the abdomen with loop dilated up to 3.1 cm with moderate to severe reactive mesenteric edema and mild free fluid also as she had some annular narrowing and thickening of the distal gastric body and antrum probably due to the distention can benefit from direct visualization eventually with an EGD and she had some fluid retained in the distal esophagus with circumferential wall thickening consistent with esophagitis and active reflux esophagitis. Her laboratory value shows no sign of anemia with hemoglobin of 11.6 also kidney function test have improved significantly from her regular borderline with cre atinine 0.99.32 blood sugar was mildly elevated only with normal liver function test UA was negative lactic acid was 1.0. Patient was started on IV hydration, IV pain meds, NG tube was placed send an call general surgery who wanted patient to be admitted to medical floor them on consult. 02/10/2024: Continue to have NG tube for decompression still n.p.o. continue IV fluid seen general surgery for possible intervention, she is going for Small bowel x-ray along with a flat abdominal x-ray, surgery is not ready to do intervention yet. Her laboratory value with white blood cell climb up to 11,700 creatinine is up multiple to 1.3 with GFR down to 44 blood sugar still marginal where it ambulates up to 138. UA was negative. Again continue supportive care and conservative management yet if does not resolve she will require probably surgery. REVIEW OF SYSTEMS: CONSTITUTIONAL: Well-developed no acute respiratory distress. Has an NG tube in. EYES: No icterus sclerae, no conjunctivitis. EARS, NOSE, MOUTH, THROAT, and FACE: No sore throat, lymphadenopathy, carotid bruits or deformity. RESPIRATORY: No SOB cough or wheezes. CARDIOVASCULAR: No CP, Palpitation, PND, Orthopnea, or angina. GASTROINTESTINAL: Slightly distended abdomen with discomfort in the mid epigastric area and mid abdominal region area not able to find any rebound no bowel sounds. GENITOURINARY: Negative for Hematuria or UTI, no kidney stones. INTEGUMENT/BREAST: Negative for any muscular injury with mild osteoarthritis.. HEMATOLOGIC/LYMPHATIC: Negative for bleed or purpura. MUSCULOSKELTAL: Negative for Myalgia or arthralgia. NEURLOGICAL: No LOC, Sz or syncope, blurred vision dizziness or abnormality.. BEHAVIORAL/PSYCH: Negative. ENDOCRINE: Negative. PHYSICAL EXAMINATION: General Appearance: Alert, cooperative, no distress, appears stated age. Neck HEENT: Supple, no lymphadenopathy, no thyroid enlargement, no carotid bruits. Has NG tube in. Lungs: Clear to auscultation without crackles or wheezes no rhonchi, no deformity. Chest Wall: Chest wall normal expansion with deep inspiration no tenderness and no deformity was found on exam, no costochondral pain or discomfort. Heart: Regular rate and rhythm, S1, S2 normal, no murmur, rub or gallop. Back: Symmetric, no curvature, ROM normal, no CVA tenderness. Abdomen: Slightly distended abdomen with mild discomfort and tenderness in the mid abdominal region area with no bowel sounds. Extremities: Extremities normal, atraumatic, no cyanosis or edema. Pulses: 2+ and symmetric. Skin: Skin color, texture, tugor normal, no rashes or lesions. Neurologic: Alert oriented x3 cranial nerves II through XII intact, no motor deficit, no abnormal balance or gait. ASSESSMENT AND PLAN: _High-grade small bowel obstruction: NG tube, continue hydration and pain management patient just seen general surgery and with a slight mesenteric change in the wall patient to go for surgery. _ Gastric Outlet Syndrome: Eventually will need an EGD continue proton pump inhibitor for now. _Severe intractable nausea and vomiting: Continue Zofran with NG tube and hydration should feel better. _Highly grade slight abnormality in the gastric area in the esophagus more consistent with may be something going on inside the lumen of the small intestine our stomach patient might require direct visualization if she is going to go for surgery that can be inspected during surgery otherwise patient might require an EGD. _History of rheumatoid arthritis and systemic lupus erythematous: Still seen rheumatology has not been on any active medication lately. _History of non-Hodgkin lymphoma still seen oncology and again has been doing well in remission at this point. No sign of metastasis or any abnormality causing her current symptom still not quite sure if there is any correlation. _Active treatment for hypertension: Remain on lisinopril 10 mg a day along with metoprolol succinate 100 mg daily. _Hyperlipidemia: Resume rosuvastatin 10 mg daily. _Hypothyroidism: Will continue patient on Synthroid 100 mcg daily. _Activity manage reactive airway/asthma remain on Advair along with rescue inhaler. Prognosis: Fair. Discussion: Patient still critically sick at this point to continue NG tube with suction General surgery still try conservative management to see if obstruction resolved, with current finding most likely patient is going to need to go for surgery. Objective - Vital Signs Vital signs: Vital Signs Temp 98.3 F 02/10/24 01:11 Pulse 110 H 02/10/24 01:11 Resp 16 02/10/24 01:11 BP 134/78 02/10/24 01:11 Pulse Ox 98 02/10/24 01:11 FiO2 Intake & Output 02/09/24 02/09/24 02/10/24 06:59 18:59 06:59 Weight 59.874 kg Other: Voiding Method Bedside Commode # Voids 1 3 - Labs CBC & Chem 7: 02/10/24 07:27 02/10/24 07:34 Labs: Abnormal Lab Results - Last 24 Hours (Table) 02/09/24 02/09/24 Range/Units 08:39 08:39 RBC 3.58 L (3.80-5.40) m/uL BUN 32 H (7-17) mg/dL Glucose 132 H (74-99) mg/dL Total Protein 6.2 L (6.3-8.2) g/dL
--- NOTE | 2024-02-11 07:37 | XR ---
EXAMINATION TYPE: XR abdomen 1V DATE OF EXAM: 02/11/2024 COMPARISON: 02/10/2024, CT 02/09/2024 INDICATION: Small bowel obstruction TECHNIQUE: Single view abdomen supine view FINDINGS: Contrast remains within the stomach and within dilated small bowel loops. Contrast extends to the rig ht lower quadrant within the pelvis. Distal small bowel obstruction is suspected. Some minimal air appears to be within the ascending colon region. Otherwise, no significant colonic b owel gas is evident. No fecal retention. Psoas margins are normal. No organomegaly is present. IMPRESSION: 1. Findings suggestive for continued high-grade small bowel obstruction, the zone of transition is no t identified.
[2024-02-11 07:43] LABS: Basophils % (A) 0 %; Eosinophils % (A) 0 %; HCT 40.5 % (34.0-46.0); HGB 12.5 gm/dL (11.4-16.0); Hypochromasia Moderate; Lymphocytes # (A) 1.2 k/uL (1.0-4.8); Lymphocytes % (A) 8 %; MCH 32.2 pg (25.0-35.0); MCHC 30.9 g/dL (31.0-37.0); MCV 104.2 fL (80.0-100.0); Macrocytosis Slight; Mean Platelet Volume 8.1; Monocytes # (A) 1.2 k/uL (0-1.0); Monocytes % (A) 8 %; Neutrophils # (A) 11.3 k/uL (1.3-7.7); Neutrophils % (A) 81 %; Platelet Count 247 k/uL (150-450); RBC 3.89 m/uL (3.80-5.40); RDW 13.4 % (11.5-15.5); WBC 13.9 k/uL (3.8-10.6)
[2024-02-11 08:00] LABS: ALT 19 U/L (4-34); AST 31 U/L (14-36); African American GFR (CKD) 24 (>60 ml/min/1.73 sqM); Albumin 3.8 g/dL (3.5-5.0); Albumin/Globulin Ratio 1.5; Alkaline Phosphatase 53 U/L (38-126); Anion Gap 10 mmol/L; Blood Urea Nitrogen 50 mg/dL (7-17); Calcium 9.3 mg/dL (8.4-10.2); Carbon Dioxide 26 mmol/L (22-30); Chloride 113 mmol/L (98-107); Globulin 2.6 g/dL; Glucose 128 mg/dL (74-99); Non-African American GFR(CKD) 21 (>60 ml/min/1.73 sqM); Potassium 4.2 mmol/L (3.5-5.1); Sodium 149 mmol/L (137-145); Total Bilirubin 0.5 mg/dL (0.2-1.3); Total Protein 6.4 g/dL (6.3-8.2)
--- NOTE | 2024-02-11 08:17 | FL ---
EXAMINATION TYPE: FL small bowel follow through DATE OF EXAM: 02/10/2024 8:44 PM COMPARISON: CT 02/09/2024 INDICATION: Patient age:Female; 68 years old; Reason for study: bowel obstruction, abdominal pain; TECHNIQUE: The procedure was explained and patient history elicited. All patient questions were ans wered prior to start of procedure. A lna radiograph of the abdomen was also reviewed. The patient was asked to ingest liquid Gastrografin and incremental frontal abdominal radiographs were then taken until contrast was visualized in the cecum. Fluoroscopic time: None min Fluoroscopic images: None Radiographs taken: 4 DAP: Not reported [id number] FINDINGS: The lna abdominal radiograph demonstrates a normal bowel gas pattern without dilated loops of small or large bowel. There is no evidence of organomegaly or pneumoperitoneum. No abnormal calcifications . The visualized osseous structures are intact. Contrast does not extend to the colon at 8 hours and 20 minutes follow-up plain film at roughly 19 ho urs also did not demonstrate contrast within the colon. And small bowel is dilated without evidence o f extravasation of contrast. Dilation up to 4.0 cm and the left abdomen. There is distention of the g astric lumen oral contrast. There is atherosclerosis of the arterial vasculature. IMPRESSION: There remains no contrast within the colon at 8 hours 20 minutes. Patient to get follow-up morning ra diograph. The subsequent radiograph also did not demonstrate contrast in the colon. Findings concerni ng for complete bowel obstruction.
--- NOTE | 2024-02-11 08:41 | P.HPADDEND ---
H&P Addendum H&P Addendum Date: 02/11/24 Imaging studies reviewed. Findings are consistent with complete small bowel obstruction. Will proceed with diagnostic laparoscopy, lysis of adhesion with possible open technique and small bowel resection discussed with the patient and her .
[2024-02-11] MEDS: SODIUM CHLORIDE 0.9% 1,000 ML IV ONE (09:07)
[2024-02-11] MEDS: IV FLUID CONTINUATION 1,000 ML IV ONE (12:00)
[2024-02-11] MEDS ORDERED: PROPOFOL 10 MG/ML 20 ML VIAL IV ONE (12:22)
[2024-02-11] MEDS ORDERED: INDOCYANINE GREEN 25 MG VIAL IV ONE (12:22)
[2024-02-11] MEDS ORDERED: ROCURONIUM 10 MG/ML (5 ML VIAL) IV ONE (12:22)
[2024-02-11] MEDS ORDERED: SUCCINYLCHOLINE CHLORIDE 200 MG/10 ML VIAL IV ONE (12:22)
[2024-02-11] MEDS ORDERED: GLYCOPYRROLATE 0.2 MG/ML 2 ML VIAL ONE (12:22)
[2024-02-11] MEDS ORDERED: LIDOCAINE 1% INJ 10MG/ML (20 ML MDV) ONE (12:22)
[2024-02-11] MEDS ORDERED: NEOSTIGMINE 1 MG/ML 10 ML VIAL ONE (12:22)
[2024-02-11] MEDS ORDERED: PHENYLEPHRINE 10 MG/ML VIAL ONE (12:22)
[2024-02-11] MEDS ORDERED: fentaNYL (PF) 50 MCG/ML 2 ML AMP ONE (12:22)
[2024-02-11 12:36] LABS: Potassium 3.9 mmol/L (3.5-5.1)
[2024-02-11] MEDS: IV FLUID CONTINUATION 500 ML IV ONE (12:50)
[2024-02-11] MEDS: LIDOCAINE 1%-EPI 1:100,000 20 ML VIAL SQ ONE ×2 (12:50→13:10)
[2024-02-11] MEDS: DEXTROSE 5% IN WATER 500 ML IV ONE (13:01)
--- NOTE | 2024-02-11 15:19 | P.OP ---
Date of Procedure: 02/11/24 Description of Procedure: SURGEON: JAXON TILLEY MD PREOPERATIVE DIAGNOSES: 1. Small bowel obstruction 2. Gastroesophageal reflux disease 3. Hypertensive heart disease 4. Hypothyroidism 5. Generalized anxiety disorder 6. Depressive disorder 7. Asthma 8. History of diffuse large B-cell lymphoma 9. History of chemotherapy 10. History of bone marrow transplant 11. History of deep venous thrombosis 12. Acute renal failure due to acute kidney injury/severe dehydration POSTOPERATIVE DIAGNOSES: 1. Small bowel obstruction due to omental adhesion to retroperitoneum 2. Gastroesophageal reflux disease 3. Hypertensive heart disease 4. Hypothyroidism 5. Generalized anxiety disorder 6. Depressive disorder 7. Asthma 8. History of diffuse large B-cell lymphoma 9. History of chemotherapy 10. History of bone marrow transplant 11. History of deep venous thrombosis 12. Small bowel ischemia due to closed-loop obstruction 13. Intra-abdominal ascites with hemoperitoneum 14. Oliguria with acute renal failure OPERATION: 1. Robotic-assisted da Kari Xi laparoscopic with lysis of adhesions ESTIMATED BLOOD LOSS: 5 mL. SPECIMENS REMOVED: None. COMPLICATIONS: None. OPERATIVE FINDINGS: 1. Acute small bowel obstruction with mesenteric ischemia due to greater omen mk adhesion to the retroperitoneum, right lower quadrant 2. Mesenteric ischemia with early small bowel ischemia 3. Indocyanine green confirms small bowel still viable with peristalsis identified 4. Mack catheter placed intraoperatively with severe oliguria less than 5 cc during case INDICATIONS: The patient is a 68-year-old female who presents with acute onset bowel obstruction. Patient reported initial resolution of abdominal pain however additional diagnostic studies demonstrated closed-loop obstruction. Surgical intervention with diagnostic laparoscopy, lysis of adhesions and possi ble bowel resection were described. Informed consent was obtained. Robotic assisted laparoscopic approach was described. Benefits and risks of the procedure including but not limited to bleeding, infection was described. Informed consent was obtained. DESCRIPTION OF PROCEDURE: Patient was brought to the operating room, placed in supine position. After general induction, the abdomen had been prepped and draped in standard sterile fashion. The robotic da Kari XI system was primed. After a timeout protocol was performed, the patient had been prepped and draped in standard sterile fashion. Prior to docking the robot, Mack catheter was placed. Severe oliguria with dark urine was found less than 5 cc. The robot was docked along the left lateral abdomen. Please note prior to doc lashay of the robot; however, a 5 mm 0 degrees laparoscopic trocar entry was performed along the left upper quadrant. The abdomen was insufflated to 15 millimercury pressure pressure which she tolerated. Next, three 8 mm robotic ports were placed along the upper abdomen and a 12 mm trocar was placed at the right upper quadrant lateral abdominal wall. Trochars were placed at least 10 to 15 cm away from the target anatomy, the pelvis. Instruments including graspers and vessel sealer were interchanged by the talent assistant. I had sat at the console. Moderately dilated small bowel was found along the left side of the abdomen where as decompressed small bowel with ischemia was found along the right side of the abdomen. A swirling of the mesentery and complete mesenteric ischemia was found of the right lower quadrant. The omentum was investigated where an omental adhesion to the retroperitoneum was creating a tight obstruction along the small bowel and mesentery. The adhesion was lysed using vessel sealer. Immediately the small bowel was released with decompression. Small bowel was investigated from the terminal ileum proximally towards the ligament of Treitz. No further adhesive bands were identified. Indocyanine green was injected per anesthesia to check small bowel perfusion. Immediately the small bowel was well-perfused with indocyanine green however the mesentery was dark and opaque. The small bowel was observed where peristalsis was confirmed of the prior closed-loop obstruction involving the proximal to mid ileum. Multiple images were obtained confirming small bowel ischemia without infarct. The robot was undocked. All pneumoperitoneum and instruments were evacuated from the abdominal cavity. The incisions were reapproximated using 4-0 Monocryl in an interrupted subcuticular fashion. Please note along the trocar sites, local anesthetic was placed as a field block prior to insertion of all instruments. Exofin was applied to the skin. At the end of the procedure needle, sponge, and instrument count had been verified correct by the director medical surgical. Due to patient's oliguria, acute renal failure, multiple electrolyte dyscrasias, and she is requested patient be transferred to intensive care unit.
[2024-02-11 16:58] LABS: African American GFR (CKD) 49 (>60 ml/min/1.73 sqM); Anion Gap 4 mmol/L; Blood Urea Nitrogen 35 mg/dL (7-17); Carbon Dioxide 15 mmol/L (22-30); Chloride 130 mmol/L (98-107); Glucose 86 mg/dL (74-99); Magnesium 1.5 mg/dL (1.6-2.3); Non-African American GFR(CKD) 42 (>60 ml/min/1.73 sqM); Potassium 2.8 mmol/L (3.5-5.1); Sodium 149 mmol/L (137-145)
[2024-02-11 17:08] LABS: Calcium 5.4 mg/dL (8.4-10.2)
[2024-02-11 17:34] LABS: Basophils % (A) 0 %; Eosinophils % (A) 0 %; HCT 28.9 % (34.0-46.0); Hypochromasia Marked; Lymphocytes # (A) 0.9 k/uL (1.0-4.8); Lymphocytes % (A) 11 %; MCH 32.7 pg (25.0-35.0); MCHC 29.9 g/dL (31.0-37.0); Macrocytosis Marked; Mean Platelet Volume 8.1; Monocytes # (A) 0.9 k/uL (0-1.0); Monocytes % (A) 10 %; Neutrophils # (A) 6.8 k/uL (1.3-7.7); Neutrophils % (A) 77 %; Platelet Count 168 k/uL (150-450); RBC 2.65 m/uL (3.80-5.40); RDW 13.5 % (11.5-15.5); WBC 8.9 k/uL (3.8-10.6)
[2024-02-11 17:36] LABS: HGB 8.7 gm/dL (11.4-16.0); MCV 109.1 fL (80.0-100.0)
--- NOTE | 2024-02-11 17:54 | P.CNPUL ---
History of Present Illness Consult date: 02/11/24 Requesting physician: Liz Dodson Reason for consult: other (Possible ICU admission) Chief complaint: Status post small bowel resection History of present illness: This is a 68-year-old female admitted on 02/09/2024, patient presented initially with chief complaint of abdominal pain started around 6 AM. Patient came in with severe pain 10 out of 10 in the umbilical area. She also felt nauseated, and she had a small amount of flatus. Workup in the ER revealed that the patient had high-grade small bowel obstruction noted on CT scan. Patient had nasogastric tube in place, continues to have abdominal pain around the umbilicus, her surgical history is mostly significant for previous hysterectomy and appendectomy with history of B-cell lymphoma status post bone marrow transplant. Patient did not improve with conservative measures, today she underwent robotic assisted laparoscopic lysis of adhesions. Postoperatively patient was a bit difficult to wean, and I was notified about this patient from Dr. Dodson. I accepted the patient to go to the ICU, however an hour later patient was weaned and extubated by anesthesia while in the recovery room. I came in to see the patient in the recovery room, and she looked very comfortable on nasal cannula, not in any distress. The surgeon was initially concerned about her hyponatremia and acute kidney injury, she also had oliguria. But she improved with fluid boluses, she was given D5W, and her follow-up labs were improving. Sodium went down from 1 55-1 49 her bicarb was noted to be a bit low at 15 but the patient had anion gap of only 4 which means the patient has mostly hyperchloremic none anion gap metabolic acidosis. BUN improved down to 35 creatinine improved to 1.2 9. Considering the improvement in her labs and considering the improvement in her hemodynamics and and her renal output, as well as improvement noted in her sodium I recommended that patient could possibly go to the regular medical floor, and we will continue to follow. If she develops any worsening clinical status, I will arrange for the patient to go back to ICU. At this point in time I believe the patient could be managed on medical surgical floor. Review of Systems CONSTITUTIONAL: Negative EYES: Negative EARS, NOSE, MOUTH, THROAT, and FACE: Negative RESPIRATORY: Negative CARDIOVASCULAR: No CP, Palpitation, PND, Orthopnea, or angina. GASTROINTESTINAL: as noted in HPI, patient presented with small bowel obstruction and abdominal pain GENITOURINARY: Negative INTEGUMENT/BREAST: Negative for any muscular injury with mild osteoarthritis.. HEMATOLOGIC/LYMPHATIC: Negative MUSCULOSKELTAL: Negative NEURLOGICAL: Negative BEHAVIORAL/PSYCH: Negative. ENDOCRINE: Negative. Past Medical History Past Medical History: Blood Disorder, Cancer, Deep Vein Thrombosis (DVT), GE RD/Reflux, Hypertension, Musculoskeletal Disorder, Osteoarthritis (OA), Renal Disease, Thyroid Disorder Additional Past Medical History / Comment(s): 06/26/15 Pt is a direct admission for chemotherapy. She is scheduled for her 3rd cycle. She intends to have a bone marrow transplant soon. Other HX: Ddiffuse large B-cell lymphoma -first diagnoses 12 yrs ago and pt was been doing well since that time. Then on 04/16/15 pt had sinus pressure a mass was discovered and [facility] diffuse large B cell [facility]- pt has begun chemo (RD_EPOCH) at [facility] after which she ended up at [facility] with admission 05/05/15 due to fatigue, weakness, nausea, severe hyponatremia (chronic) ,hypocloremia, hypokalemia, hypomagnesium, anemia, pancytopenia, chemo induced neutropenia, UTI. Pt then decided to have chemo here-locally. She has had 2 doses of EOPCH with Rituxan so far. Additional hx of: DVT L axillae yrs ago, migraines, stage 3 kidney disease, antiphospholipid antibody syndrome with hypercoagulable state, anemia of chronic kidney disease, SLE, paresthesia, peripheral neuropathy bilateral hands, feet and some numbness in face which she attributes to chemo and nasal surgery, pt is on lipitor not for elevated lipids but due to lupus potentially causing heart dx. Bone marrow transplant 2016 History of Any Multi-Drug Resistant Organisms: None Reported Past Surgical History: Hysterectomy Additional Past Surgical History / Comment(s): 02/2015 [facility] , 05/29/15 PICC line insertion. Other SX HX: tumor removed from left arm from 1st time of lymphoma, 04/16/15 sinus bx, yrs ago mediport L chest which never worked and was removed. Past Anesthesia/Blood Transfusion Reactions: No Reported Reaction Past Psychological History: Anxiety, Depression Smoking Status: Never smoker Past Alcohol Use History: None Reported Past Drug Use History: None Reported - Past Family History Father Family Medical History: Cancer Additional Family Medical History / Comment(s): prostate CA Mother Family Medical History: No Reported History Brother(s) Family Medical History: Myocardial Infarction (CT) Medications and Allergies Home Medications Medication Instructions Recorded Confirmed Type Levothyroxine Sodium [Synthroid] 100 mcg PO DAILY 06/26/15 02/09/24 History Aspirin EC [Ecotrin Low Dose] 81 mg PO HS 05/23/21 02/09/24 History Calcium Carbonate [Calcium] 600 mg PO W/SUPPER 05/23/21 02/09/24 History Cetirizine HCl [Zyrtec] 10 mg PO DAILY 05/23/21 02/09/24 History Estradiol Cream [Estrace Cream 1 gram VAGINAL HS 05/23/21 02/09/24 History 0.01%] Fluticasone Propion/Salmeterol 1 puff INHALATION RT-BID 05/23/21 02/09/24 History [Advair 250-50 Diskus] Metoprolol Succinate (ER) [Toprol 100 mg PO DAILY 05/23/21 02/09/24 History Xl] Montelukast [Singulair] 10 mg PO HS 05/23/21 02/09/24 History Proctocort 30mg Suppository 30 mg RECTAL HS PRN 05/23/21 02/09/24 History Rosuvastatin Calcium 10 mg PO HS 05/23/21 02/09/24 History Albuterol Sulfate [Albuterol 1 - 2 puff PO RT-Q6H PRN 02/09/24 02/09/24 History Sulfate Hfa] Carboxymethylcellulose Sodium 1 - 2 drop BOTH EYES DIRECTED 02/09/24 02/09/24 History [Refresh Tears] PRN Lifitegrast [Xiidra] 1 drop BOTH EYES BID 02/09/24 02/09/24 History lisinopriL [Prinivil] 10 mg PO DAILY 02/09/24 02/09/24 History Allergies Allergy/AdvReac Type Severity Reaction Status Date / Time Sulfa (Sulfonamide Allergy Unknown Verified 02/09/24 09:36 Antibiotics) Childhood codeine AdvReac Nausea Verified 02/09/24 09:36 hydrocodone bitartrate AdvReac Nausea Verified 02/09/24 09:36 [From [place]] Physical Exam Vitals: Vital Signs Temp Pulse Pulse Pulse Resp BP Pulse Ox 02/11/24 17:15 80 16 136/63 98 02/11/24 16:45 86 16 133/59 97 02/11/24 16:15 90 16 140/65 97 02/11/24 16:00 88 16 127/66 97 02/11/24 15:45 85 16 120/62 97 02/11/24 15:30 86 16 136/60 97 02/11/24 15:15 85 16 120/64 100 02/11/24 15:00 85 16 123/60 100 02/11/24 14:45 89 15 130/57 98 02/11/24 14:30 89 15 117/62 94 L 02/11/24 14:25 97.0 F L 91 15 113/54 94 L 02/11/24 12:00 97.9 F 95 18 159/72 95 02/11/24 07:42 98.3 F 101 H 17 141/84 97 02/11/24 01:23 97.8 F 91 17 110/75 95 02/10/24 19:27 97.8 F 93 14 120/86 95 02/10/24 18:56 80 14 Intake and Output 02/11/24 02/11/24 02/11/24 06:59 14:59 22:59 Intake Total 1300 1150 Output Total 1800 5 Balance -500 1145 Intake: IV 1150 Intake, IV Titration 1300 Amount Piperacillin-Tazobactam 3 100 .375 gm In Sodium Chloride 0.9% 100 ml @ 25 mls/hr IVPB Q8HR JOE Rx# :[id number] Sodium Chloride 0.9% 1, 1200 000 ml @ 100 mls/hr IV . Q10H JOE Rx#:[id number] Output: Gastric Drainage 1800 Estimated Blood Loss 5 Other: Voiding Method Bedside Commode # Voids 2 Weight 59.874 kg 59.874 kg General: Revealed a 68-year-old female in no distress Head: Atraumatic normocephalic Skin: Skin is warm and dry and no rashes or lesions are noted. Eye: Pupils are equal, round and reactive to light, extra-ocular movements are intact; there is normal conjunctiva bilaterally. Ears, nose, mouth and throat: There are moist mucous membranes and no oral lesions. Neck: The neck is supple, there is no tenderness or JVD. Cardiovascular: There is a regular rate and rhythm. No murmur, rub or gallop is appreciated. Respiratory: Clear bilaterally no crackles rhonchi or wheezes Gastrointestinal: postsurgical, soft, nontender, no megaly, no rebound, no guarding Musculoskeletal: Normal ROM, no tenderness, There is no pedal edema. There is no calf tenderness or swelling. No cords were appreciated. Neurological: Alert oriented x 3 no gross focal deficit Psychiatric: Normal mood, affect and normal mental status examination. Results - Laboratory Findings CBC and BMP: 02/11/24 16:25 02/11/24 16:25 PT/INR, D-dimer PT 10.2 sec (10.0-12.5) 02/09/24 09:28 INR 0.9 (<1.2) 02/09/24 09:28 Abnormal lab findings: Abnormal Labs 02/09/24 02/09/24 02/10/24 08:39 08:39 07:27 WBC 11.73 H RBC 3.58 L Hgb Hct MCV 101.4 H MCHC 31.5 L Neutrophils # 8.51 H Monocytes # 1.49 H Eosinophils # 0 L Macrocytosis Sodium Potassium Chloride Carbon Dioxide BUN 32 H Creatinine Est GFR (CKD-EPI) BUN/Creatinine Ratio Glucose 132 H Calcium Magnesium Total Protein 6.2 L Amylase 02/10/24 02/11/24 02/11/24 07:34 07:17 07:17 WBC 13.9 H RBC Hgb Hct MCV 104.2 H MCHC 30.9 L Neutrophils # 11.3 H Monocytes # 1.2 H Eosinophils # Macrocytosis Sodium 149 H Potassium Chloride 113 H Carbon Dioxide BUN 28.0 H 50 H Creatinine 2.31 H Est GFR (CKD-EPI) 44 L BUN/Creatinine Ratio 21.54 H Glucose 129 H 128 H Calcium Magnesium Total Protein 5.9 L Amylase 138 H 02/11/24 02/11/24 02/11/24 12:15 16:25 16:25 WBC RBC 2.65 L Hgb 8.7 L D Hct 28.9 L MCV 109.1 H MCHC 29.9 L Neutrophils # Monocytes # Eosinophils # Macrocytosis Marked A Sodium 155 H 149 H Potassium 2.8 L Chloride 117 H 130 H Carbon Dioxide 15 L BUN 35 H Creatinine 1.29 H Est GFR (CKD-EPI) BUN/Creatinine Ratio Glucose Calcium 5.4 L* Magnesium 1.5 L Total Protein Amylase Assessment and Plan Assessment: Impression: High-grade small bowel obstruction, status post Robotic-assisted da Kari Xi laparoscopic with lysis of adhesions postoperative day #0 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 Acute kidney injury secondary to hypovolemia and hypotension, improving now with hydration compared to her renal functioning 2 days ago. History of deep vein thrombosis Oligoria, improving with fluid boluses and the patient to be given more fluid bolus of D5W after I saw her in recovery room. History of mild intermittent asthma History of depression History of hypothyroidism History of GERD without esophagitis Hypernatremia secondary to free water deficit improving with D5W Recommendation: Continue present supportive care measures Continue D5W Continue to monitor labs including basic metabolic profile CBC and renal profile Patient could be transferred to regular medical floor, no need for ICU admission now that she is extubated Continue to monitor hemodynamics Incentive spirometry Early ambulation Continue n.p.o. and nasogastric tube in place Resume home meds/bronchodilators for her mild intermittent asthma Will continue to follow Repeat labs in a.m. Time with Patient: Greater than 30
[2024-02-11 18:06] LABS: Polychromasia Present
[2024-02-11 18:35] LABS: African American GFR (CKD) 29 (>60 ml/min/1.73 sqM); Anion Gap 6 mmol/L; Blood Urea Nitrogen 49 mg/dL (7-17); Calcium 7.9 mg/dL (8.4-10.2); Carbon Dioxide 26 mmol/L (22-30); Chloride 115 mmol/L (98-107); Glucose 178 mg/dL (74-99); Non-African American GFR(CKD) 25 (>60 ml/min/1.73 sqM); Potassium 3.9 mmol/L (3.5-5.1); Sodium 147 mmol/L (137-145)
[2024-02-11] MEDS: ACETAMINOPHEN IV (For NPO) 1,000 MG in EMPTY BAG 1 BAG IVPB SCH (20:14)
[2024-02-11] MEDS: MAGNESIUM SULFATE-D5W PMX 1 GM in DEXTROSE/WATER 1 100ML.BAG IVPB SCH (21:43)
[2024-02-11] MEDS: HEPARIN SODIUM,PORCINE 5,000 UNIT/ML 1 ML VIAL SQ SCH (21:43)
[2024-02-12 07:20] LABS: African American GFR (CKD) 34 (>60 ml/min/1.73 sqM); Anion Gap 5 mmol/L; Blood Urea Nitrogen 46 mg/dL (7-17); Calcium 7.9 mg/dL (8.4-10.2); Carbon Dioxide 21 mmol/L (22-30); Chloride 116 mmol/L (98-107); Glucose 80 mg/dL (74-99); Non-African American GFR(CKD) 29 (>60 ml/min/1.73 sqM); Potassium 4.2 mmol/L (3.5-5.1); Sodium 142 mmol/L (137-145)
--- NOTE | 2024-02-12 09:40 | P.PN ---
Subjective Progress Note Date: 02/11/24 HISTORY OF PRESENT ILLNESS: 68-year-old woman my office patient who has an active history of rheumatoid arthritis, lupus, non-Hodgkin lymphoma, Previous history of deep venous thrombosis and pulmonary embolism, history of diffuse large B-cell lymphoma post bone marrow transplant also known to have recurrent history of anemia along with pancytopenia and neutropenia. She is known to have ongoing stage III chronic kidney disease and also active antiphospholipid antibody syndrome with hypercoagulation, on active treatment for peripheral neuropathy and known to be managed by rheumatology for rheumatoid arthritis and systemic lupus erythematous. Patient has been our office patient since. 89 very compliant with all her medical problem, medication and appointment. She presented to the emergency department at [facility] on 02/09/2024 because of sudden onset of mid abdominal pain developed radiology ct technologist she had her coffee and light breakfast and all of a sudden developed to have intractable accelerated worsening sharp pain in the middle around the umbilical area following her pain she ended up having 2 bowel movement and her pain become much worse she felt much better when she lays down straight on the ground with stating her feet. After giving the pain over couple hours without any relief ended up coming to the emergency department where was seen and evaluated. She ended up having flat x-ray of the abdomen and CAT scan of the abdomen and pelvis which surprisingly showed high-grade small bowel obstruction located in the right side of the abdomen with loop dilated up to 3.1 cm with moderate to severe reactive mesenteric edema and mild free fluid also as she had some annular narrowing and thickening of the distal gastric body and antrum probably due to the distention can benefit from direct visualization eventually with an EGD and she had some fluid retained in the distal esophagus with circumferential wall thickening consistent with esophagitis and active reflux esophagitis. Her laboratory value shows no sign of anemia with hemoglobin of 11.6 also kidney function test have improved significantly from her regular borderline with cre atinine 0.99.32 blood sugar was mildly elevated only with normal liver function test UA was negative lactic acid was 1.0. Patient was started on IV hydration, IV pain meds, NG tube was placed send an call general surgery who wanted patient to be admitted to medical floor them on consult. 02/10/2024: Continue to have NG tube for decompression still n.p.o. continue IV fluid seen general surgery for possible intervention, she is going for Small bowel x-ray along with a flat abdominal x-ray, surgery is not ready to do intervention yet. Her laboratory value with white blood cell climb up to 11,700 creatinine is up multiple to 1.3 with GFR down to 44 blood sugar still marginal where it ambulates up to 138. UA was negative. Again continue supportive care and conservative management yet if does not resolve she will require probably surgery. 02/11/2024: She is still very sick still have an NG tube in with decompression her x-ray still showing high-grade obstruction she is probably going for surgery today for robotic assisted lysis of adhesion with general surgery. Patient remain on hydration but sadly she had an acute kidney injury with a kidney function declined today compared to before we will continue aggressive hydration until her surgery and repeat chemistry with kidney function today and tomorrow morning. Awaiting to go for her surgery today. REVIEW OF SYSTEMS: CONSTITUTIONAL: Well-developed no acute respiratory distress. Has an NG tube in. EYES: No icterus sclerae, no conjunctivitis. EARS, NOSE, MOUTH, THROAT, and FACE: No sore throat, lymphadenopathy, carotid bruits or deformity. RESPIRATORY: No SOB cough or wheezes. CARDIOVASCULAR: No CP, Palpitation, PND, Orthopnea, or angina. GASTROINTESTINAL: Slightly distended abdomen with discomfort in the mid epigastric area and mid abdominal region area not able to find any rebound no bowel sounds. GENITOURINARY: Negative for Hematuria or UTI, no kidney stones. INTEGUMENT/BREAST: Negative for any muscular injury with mild osteoarthritis.. HEMATOLOGIC/LYMPHATIC: Negative for bleed or purpura. MUSCULOSKELTAL: Negative for Myalgia or arthralgia. NEURLOGICAL: No LOC, Sz or syncope, blurred vision dizziness or abnormality.. BEHAVIORAL/PSYCH: Negative. ENDOCRINE: Negative. PHYSICAL EXAMINATION: General Appearance: Alert, cooperative, no distress, appears stated age. Neck HEENT: Supple, no lymphadenopathy, no thyroid enlargement, no carotid bruits. Has NG tube in. Lungs: Clear to auscultation without crackles or wheezes no rhonchi, no deformity. Chest Wall: Chest wall normal expansion with deep inspiration no tenderness and no deformity was found on exam, no costochondral pain or discomfort. Heart: Regular rate and rhythm, S1, S2 normal, no murmur, rub or gallop. Back: Symmetric, no curvature, ROM normal, no CVA tenderness. Abdomen: Slightly distended abdomen with mild discomfort and tenderness in the mid abdominal region area with no bowel sounds. Extremities: Extremities normal, atraumatic, no cyanosis or edema. Pulses: 2+ and symmetric. Skin: Skin color, texture, tugor normal, no rashes or lesions. Neurologic: Alert oriented x3 cranial nerves II through XII intact, no motor deficit, no abnormal balance or gait. ASSESSMENT AND PLAN: _High-grade small bowel obstruction: Continue NG tube to suction patient going for surgery today. _ Gastric Outlet Syndrome: Eventually will need an EGD continue proton pump inhibitor for now. Still on proton pump inhibitor. _Acute kidney injury: With worsening kidney function most likely from her aggressive nausea and vomiting and current obstruction, patient will continue aggressive hydration nephrology consultation be done patient will have CMP repeated again in the afternoon and probably tomorrow morning. _Severe intractable nausea and vomiting: Continue Zofran with NG tube and hydration should feel better. _History of rheumatoid arthritis and systemic lupus erythematous: Still seen rheumatology has not been on any active medication lately. _History of non-Hodgkin lymphoma still seen oncology and again has been doing well in remission at this point. No sign of metastasis or any abnormality causing her current symptom still not quite sure if there is any correlation. _Active treatment for hypertension: Remain on lisinopril 10 mg a day along with metoprolol succinate 100 mg daily. _Hyperlipidemia: Resume rosuvastatin 10 mg daily. _Hypothyroidism: Will continue patient on Synthroid 100 mcg daily. _Activity manage reactive airway/asthma remain on Advair along with rescue i nhaler. Prognosis: Fair. Discussion: Patient going for surgery today, continue to watch her kidney function more carefully will take her off lisinopril blood pressure has been good so far patient has not received any oral medication with exception of her thyroid. Objective - Vital Signs Vital signs: Vital Signs Temp 97.8 F 02/11/24 01:23 Pulse 91 02/11/24 01:23 Resp 17 02/11/24 01:23 BP 110/75 02/11/24 01:23 Pulse Ox 95 02/11/24 01:23 FiO2 Intake & Output 02/10/24 02/10/24 02/11/24 06:59 18:59 06:59 Output Total 1900 Balance -1900 Output: Gastric Drainage 1900 Other: Voiding Method Bedside Commode Bedside Commode Bedside Commode # Voids 1 2 2 - Labs CBC & Chem 7: 02/11/24 16:25 02/12/24 05:45 Labs: Abnormal Lab Results - Last 24 Hours (Table) 02/10/24 02/10/24 Range/Units 07:27 07:34 WBC 11.73 H (4.50-10.00) X 10*3/uL MCV 101.4 H (80.0-97.0) FL MCHC 31.5 L (32.0-37.0) g/dL Neutrophils # 8.51 H (1.80-7.70) X 10*3/uL Monocytes # 1.49 H (0.20-1.00) X 10*3/uL Eosinophils # 0 L (0.04-0.35) X 10*3/uL BUN 28.0 H (9.0-27.0) mg/dL Est GFR (CKD-EPI) 44 L (>=60) BUN/Creatinine Ratio 21.54 H (12.00-20.00) Ratio Glucose 129 H (70-110) mg/dL Total Protein 5.9 L (6.2-8.2) g/dL Amylase 138 H (23-121) U/L Microbiology - Last 24 Hours (Table) 02/09/24 11:56 Blood Culture - Preliminary Blood 02/09/24 11:56 Blood Culture - Preliminary Blood
--- NOTE | 2024-02-12 09:55 | P.PN ---
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 She is known to have ongoing stage III chronic kidney disease and also active antiphospholipid antibody syndrome with hypercoagulation, on active treatment for peripheral neuropathy and known to be managed by rheumatology for rheumatoid arthritis and systemic lupus erythematous. Patient has been our office patient since. 89 very compliant with all her medical problem, medication and appointment. 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 After giving the pain over couple hours without any relief ended up coming to the emergency department where was seen and evaluated. She ended up having flat x-ray of the abdomen and CAT scan of the abdomen and pelvis which surprisingly showed high-grade small bowel obstruction located in the right side of the abdomen with loop dilated up to 3.1 cm with moderate to severe reactive mesenteric edema and mild free fluid also as she had some annular narrowing and thickening of the distal gastric body and antrum probably due to the distention can benefit from direct visualization eventually with an EGD and she had some fluid retained in the distal esophagus with circumferential wall thickening consistent with esophagitis and active reflux esophagitis. Her laboratory value shows no sign of anemia with hemoglobin of 11.6 also kidney function test have improved significantly from her regular borderline with cre atinine 0.99.32 blood sugar was mildly elevated only with normal liver function test UA was negative lactic acid was 1.0. Patient was started on IV hydration, IV pain meds, NG tube was placed send an call general surgery who wanted patient to be admitted to medical floor them on consult. 02/10/2024: Continue to have NG tube for decompression still n.p.o. continue IV fluid seen general surgery for possible intervention, she is going for Small bowel x-ray along with a flat abdominal x-ray, surgery is not ready to do intervention yet. Her laboratory value with white blood cell climb up to 11,700 creatinine is up multiple to 1.3 with GFR down to 44 blood sugar still marginal where it ambulates up to 138. UA was negative. Again continue supportive care and conservative management yet if does not resolve she will require probably surgery. 02/11/2024: She is still very sick still have an NG tube in with decompression her x-ray still showing high-grade obstruction she is probably going for surgery today for robotic assisted lysis of adhesion with general surgery. Patient remain on hydration but sadly she had an acute kidney injury with a kidney function declined today compared to before we will continue aggressive hydration until her surgery and repeat chemistry with kidney function today and tomorrow morning. Awaiting to go for her surgery today. 02/12/2024: Patient is sitting in bed feeling much better, her NG tube is out, she had robotic assisted lysis of adhesion yesterday successfully with no major complication. Patient had significant change in kidney function looks very weird her kidney function changed from stage II to stage IIIb then improved slight bit and then decline. Will continue hydration 130 cc of normal saline an hour run ultrasound of the kidney patient will be seen nephrology will repeat her CMP at 3:00 in the afternoon keep the Mack catheter for better watch and manage her urine output and fluid till her kidney function improved and we can remove it later today or early tomorrow morning. REVIEW OF SYSTEMS: CONSTITUTIONAL: Well-developed no acute respiratory distress. Has an NG tube in. EYES: No icterus sclerae, no conjunctivitis. EARS, NOSE, MOUTH, THROAT, and FACE: No sore throat, lymphadenopathy, carotid bruits or deformity. RESPIRATORY: No SOB cough or wheezes. CARDIOVASCULAR: No CP, Palpitation, PND, Orthopnea, or angina. GASTROINTESTINAL: Slightly distended abdomen with discomfort in the mid epigastric area and mid abdominal region area not able to find any rebound no bowel sounds. GENITOURINARY: Negative for Hematuria or UTI, no kidney stones. INTEGUMENT/BREAST: Negative for any muscular injury with mild osteoarthritis.. HEMATOLOGIC/LYMPHATIC: Negative for bleed or purpura. MUSCULOSKELTAL: Negative for Myalgia or arthralgia. NEURLOGICAL: No LOC, Sz or syncope, blurred vision dizziness or abnormality.. BEHAVIORAL/PSYCH: Negative. ENDOCRINE: Negative. PHYSICAL EXAMINATION: General Appearance: Alert, cooperative, no distress, appears stated age. Neck HEENT: Supple, no lymphadenopathy, no thyroid enlargement, no carotid bruits. Has NG tube in. Lungs: Clear to auscultation without crackles or wheezes no rhonchi, no deformity. Chest Wall: Chest wall normal expansion with deep inspiration no tenderness and no deformity was found on exam, no costochondral pain or discomfort. Heart: Regular rate and rhythm, S1, S2 normal, no murmur, rub or gallop. Back: Symmetric, no curvature, ROM normal, no CVA tenderness. Abdomen: Her surgical site looks very clean, soft abdomen positive bowel sounds no rebound or rigidity slightly bit tender in the lower part. Extremities: Extremities normal, atraumatic, no cyanosis or edema. Pulses: 2+ and symmetric. Skin: Skin color, texture, tugor normal, no rashes or lesions. Neurologic: Alert oriented x3 cranial nerves II through XII intact, no motor deficit, no abnormal balance or gait. ASSESSMENT AND PLAN: _High-grade small bowel obstruction: Post robotic assisted lysis of adhesions done successfully doing well. _ Gastric Outlet Syndrome: Eventually will need an EGD continue proton pump inhibitor for now. Still on proton pump inhibitor. Will still have to go for an EGD at some point. _Acute kidney injury: Continue 0.9 normal saline at 150 cc an hour continue to watch urine output via Mack catheter till tomorrow repeat CMP at 3:00 in the afternoon. Patient be seen nephrology and renal ultrasound to be done. _History of rheumatoid arthritis and systemic lupus erythematous: Still seen rheumatology has not been on any active medication lately. _History of non-Hodgkin lymphoma still seen oncology and again has been doing well in remission at this point. No sign of metastasis or any abnormality causing her current symptom still not quite sure if there is any correlation. _Active treatment for hypertension: Remain on lisinopril 10 mg a day along with metoprolol succinate 100 mg daily. _Hyperlipidemia: Resume rosuvastatin 10 mg daily. _Hypothyroidism: Will continue patient on Synthroid 100 mcg daily. _Activity manage reactive airway/asthma remain on Advair along with rescue inhaler. Prognosis: Good Discussion: She had a surgery yesterday, continue to watch kidney function more carefully today, continue hydration, titrate diet gradually patient will remain in the hospital probably till Wednesday. Objective - Vital Signs Vital signs: Vital Signs Temp 99.2 F 02/12/24 06:40 Pulse 78 02/12/24 06:40 Resp 14 02/12/24 06:40 BP 121/65 02/12/24 06:40 Pulse Ox 98 02/12/24 06:40 FiO2 Intake & Output 02/11/24 02/12/24 02/12/24 18:59 06:59 18:59 Intake Total 1800 Output Total 135 800 Balance 1665 -800 Weight 59.874 kg 54.5 kg Intake: IV 1800 Output: Urine 130 800 Estimated Blood Loss 5 Other: Voiding Method Bedside Commode - Labs CBC & Chem 7: 02/11/24 16:25 02/12/24 05:45 Labs: Abnormal Lab Results - Last 24 Hours (Table) 02/11/24 02/11/24 02/11/24 Range/Units 07:17 12:15 16:25 RBC 2.65 L (3.80-5.40) m/uL Hgb 8.7 L D (11.4-16.0) gm/dL Hct 28.9 L (34.0-46.0) % MCV 109.1 H (80.0-100.0) fL MCHC 29.9 L (31.0-37.0) g/dL Lymphocytes # 0.9 L (1.0-4.8) k/uL Macrocytosis Marked A Sodium 149 H 155 H (137-145) mmol/L Potassium (3.5-5.1) mmol/L Chloride 113 H 117 H (98-107) mmol/L Carbon Dioxide (22-30) mmol/L BUN 50 H (7-17) mg/dL Creatinine 2.31 H (0.52-1.04) mg/dL Glucose 128 H (74-99) mg/dL Calcium (8.4-10.2) mg/dL Magnesium (1.6-2.3) mg/dL 02/11/24 02/11/24 02/12/24 Range/Units 16:25 18:18 05:45 RBC (3.80-5.40) m/uL Hgb (11.4-16.0) gm/dL Hct (34.0-46.0) % MCV (80.0-100.0) fL MCHC (31.0-37.0) g/dL Lymphocytes # (1.0-4.8) k/uL Macrocytosis Sodium 149 H 147 H (137-145) mmol/L Potassium 2.8 L (3.5-5.1) mmol/L Chloride 130 H 115 H 116 H (98-107) mmol/L Carbon Dioxide 15 L 21 L (22-30) mmol/L BUN 35 H 49 H 46 H (7-17) mg/dL Creatinine 1.29 H 2.00 H 1.75 H (0.52-1.04) mg/dL Glucose 178 H (74-99) mg/dL Calcium 5.4 L* 7.9 L 7.9 L (8.4-10.2) mg/dL Magnesium 1.5 L (1.6-2.3) mg/dL Microbiology - Last 24 Hours (Table) 02/09/24 11:56 Blood Culture - Preliminary Blood 02/09/24 11:56 Blood Culture - Preliminary Blood
[2024-02-12 10:46] LABS: Acanthocytes 2+; Basophils # (A) 0.03 X 10*3/uL (0.00-0.10); Basophils % (A) 0.2 %; Crenated RBC 2+; Eosinophils # (A) 0.06 X 10*3/uL (0.04-0.35); Eosinophils % (A) 0.5 %; HCT 32.6 % (37.2-46.3); Lymphocytes # (A) 2.39 X 10*3/uL (0.90-5.00); Lymphocytes % (A) 18.9 %; MCH 32.5 pg (27.0-32.0); MCHC 30.7 g/dL (32.0-37.0); MCV 105.8 FL (80.0-97.0); Mean Platelet Volume 10.6 FL (9.5-12.2); Monocytes # (A) 1.51 X 10*3/uL (0.20-1.00); NRBC Per 100 WBC 0 X 10*3/uL (0.00-0.01); Neutrophils % (A) 68.1 %; Platelet Count 179 X 10*3/uL (140-440); RBC 3.08 X 10*6/uL (4.10-5.20); RDW 15.2 % (11.5-14.5); WBC 12.63 X 10*3/uL (4.50-10.00)
--- NOTE | 2024-02-12 11:14 | US ---
EXAMINATION TYPE: US kidneys/renal and bladder DATE OF EXAM: 02/12/2024 COMPARISON: NONE CLINICAL INDICATION: Female, 68 years old with history of GLADYS; GLADYS. History of renal cysts EXAM MEASUREMENTS: Right Kidney: 9.6 x 4.7 x 4.0 cm Left Kidney: 8.9 x 4.5 x 3.5 cm Right Kidney: multiple cystic lesions, largest mid/lower pole = 3.2 x 3.1 x 3.1cm Left Kidney: multiple cystic lesions, largest upper pole = 2.7 x 2.2 x 2.6cm No hydronephrosis on either side. Bladder: Not adequately assessed due to the indwelling Mack Catheter IMPRESSION: 1. No hydronephrosis. 2. A number of bilateral renal cortical cysts, largest measuring 3.2 cm. 3. Mack catheter in place.
--- NOTE | 2024-02-12 11:55 | P.NPCON ---
History of Present Illness - Reason for Consult acute renal failure - History of Present Illness patient is a 68-year-old female with history of rheumatoid arthritis, lupus, non-Hodgkin's lymphoma status post bone marrow transplant. Patient also has underlying chronic kidney disease stage III and follows with certified orthotist practice manager at [facility]. Patient was admitted to the hospital with complaints of abdominal pain. Patient was noted to have high-grade small bowel obstruction. status post laparoscopic lysis of adhesions on 02/11/2024. serum creatinine was 0.9 on initial admission and increased to 2.3 on 02/10. Patient is currently maintained on IV fluids and serum creatinine has improved to 1.7 today.lisinopril has been discontinued. No significant hypotension noted although systolic blood pressure today was 109/61. Overall patient states she is feeling better. currently with indwelling Mack catheter with 800 mL of urine documented. no nephrotoxic agents identified. Review of Systems As per HPI Past Medical History Past Medical History: Blood Disorder, Cancer, Deep Vein Thrombosis (DVT), GERD/Reflux, Hypertension, Musculoskeletal Disorder, Osteoarthritis (OA), Renal Disease, Thyroid Disorder Additional Past Medical History / Comment(s): 06/26/15 Pt is a direct admission for chemotherapy. She is scheduled for her 3rd cycle. She intends to have a bone marrow transplant soon. Other HX: Ddiffuse large B-cell lymphoma -first diagnoses 12 yrs ago and pt was been doing well since that time. Then on 04/16/15 pt had sinus pressure a mass was discovered and a bx performed at [facility] which confirmed diffuse large B cell lymphoma- pt has begun chemo (RD_EPOCH) at [facility] after which she ended up at [facility] with admission 05/05/15 due to fatigue, weakness, nausea, severe hyponatremia (chronic) ,hypocloremia, hypokalemia, hypomagnesium, anemia, pancytopenia, chemo induced neutropenia, UTI. Pt then decided to have chemo here-locally. She has had 2 doses of EOPCH with Rituxan so far. Additional hx of: DVT L axillae yrs ago, migraines, stage 3 kidney disease, antiphospholipid antibody syndrome with hypercoagulable state, anemia of chronic kidney disease, SLE, paresthesia, peripheral neuropathy bilateral hands, feet and some numbness in face which she attributes to chemo and nasal surgery, pt is on lipitor not for elevated lipids but due to lupus potentially causing heart dx. Bone marrow transplant 2016 History of Any Multi-Drug Resistant Organisms: None Reported Past Surgical History: Hysterectomy Additional Past Surgical History / Comment(s): 02/2015 bone marrow aspiration at [facility], 05/29/15 PICC line insertion. Other SX HX: tumor removed from left arm from 1st time of lymphoma, 04/16/15 sinus bx, yrs ago mediport L chest which never worked and was removed. Past Anesthesia/Blood Transfusion Reactions: No Reported Reaction Past Psychological History: Anxiety, Depression Smoking Status: Never smoker Past Alcohol Use History: None Reported Past Drug Use History: None Reported - Past Family History Father Family Medical History: Cancer Additional Family Medical History / Comment(s): prostate CA Mother Family Medical History: No Reported History Brother(s) Family Medical History: Myocardial Infarction ([place]) Medications and Allergies Home Medications Medication Instructions Recorded Confirmed Type Levothyroxine Sodium [Synthroid] 100 mcg PO DAILY 06/26/15 02/09/24 History Aspirin EC [Ecotrin Low Dose] 81 mg PO HS 05/23/21 02/09/24 History Calcium Carbonate [Calcium] 600 mg PO W/SUPPER 05/23/21 02/09/24 History Cetirizine HCl [Zyrtec] 10 mg PO DAILY 05/23/21 02/09/24 History Estradiol Cream [Estrace Cream 1 gram VAGINAL HS 05/23/21 02/09/24 History 0.01%] Fluticasone Propion/Salmeterol 1 puff INHALATION RT-BID 05/23/21 02/09/24 History [Advair 250-50 Diskus] Metoprolol Succinate (ER) [Toprol 100 mg PO DAILY 05/23/21 02/09/24 History Xl] Montelukast [Singulair] 10 mg PO HS 05/23/21 02/09/24 History Proctocort 30mg Suppository 30 mg RECTAL HS PRN 05/23/21 02/09/24 History Rosuvastatin Calcium 10 mg PO HS 05/23/21 02/09/24 History Albuterol Sulfate [Albuterol 1 - 2 puff PO RT-Q6H PRN 02/09/24 02/09/24 History Sulfate Hfa] Carboxymethylcellulose Sodium 1 - 2 drop BOTH EYES DIRECTED 02/09/24 02/09/24 History [Refresh Tears] PRN Lifitegrast [Xiidra] 1 drop BOTH EYES BID 02/09/24 02/09/24 History lisinopriL [Prinivil] 10 mg PO DAILY 02/09/24 02/09/24 History Allergies Allergy/AdvReac Type Severity Reaction Status Date / Time Sulfa (Sulfonamide Allergy Unknown Verified 02/09/24 09:36 Antibiotics) Childhood codeine AdvReac Nausea Verified 02/09/24 09:36 hydrocodone bitartrate AdvReac Nausea Verified 02/09/24 09:36 [From [place]] Physical Exam Vitals: Vital Signs Temp Pulse Pulse Pulse Pulse Resp BP 02/12/24 06:40 99.2 F 78 14 02/12/24 01:25 97.6 F 77 20 02/11/24 21:34 83 134/74 02/11/24 21:18 78 114/69 02/11/24 21:04 78 117/69 02/11/24 20:49 78 122/73 02/11/24 20:34 85 137/73 02/11/24 20:19 82 123/70 02/11/24 20:04 84 132/73 02/11/24 19:49 81 116/68 02/11/24 19:34 83 135/75 02/11/24 18:45 79 16 121/58 02/11/24 18:15 79 16 121/58 02/11/24 17:45 79 16 129/63 02/11/24 17:15 80 16 136/63 02/11/24 16:45 86 16 133/59 02/11/24 16:15 90 16 140/65 02/11/24 16:00 88 16 127/66 02/11/24 15:45 85 16 120/62 02/11/24 15:30 86 16 136/60 02/11/24 15:15 85 16 120/64 02/11/24 15:00 85 16 123/60 02/11/24 14:45 89 15 130/57 02/11/24 14:30 89 15 117/62 02/11/24 14:25 97.0 F L 91 15 113/54 02/11/24 12:00 97.9 F 95 18 159/72 BP Pulse Ox 02/12/24 06:40 121/65 98 02/12/24 01:25 109/61 92 L 02/11/24 21:34 96 02/11/24 21:18 100 02/11/24 21:04 100 02/11/24 20:49 99 02/11/24 20:34 98 02/11/24 20:19 99 02/11/24 20:04 99 02/11/24 19:49 99 02/11/24 19:34 99 02/11/24 18:45 98 02/11/24 18:15 100 02/11/24 17:45 98 02/11/24 17:15 98 02/11/24 16:45 97 02/11/24 16:15 97 02/11/24 16:00 97 02/11/24 15:45 97 02/11/24 15:30 97 02/11/24 15:15 100 02/11/24 15:00 100 02/11/24 14:45 98 02/11/24 14:30 94 L 02/11/24 14:25 94 L 02/11/24 12:00 95 Intake and Output 02/11/24 02/12/24 02/12/24 22:59 06:59 14:59 Intake Total 650 240 Output Total 130 800 Balance 520 -800 240 Intake: IV 650 Oral 240 Output: Urine 130 800 Other: Voiding Method Indwelling Catheter # Bowel Movements 1 Weight 59.874 kg 54.5 kg patient is awake, comfortable, no acute distress Alert oriented 3 Examination of the heart S1 and S2 Examination of the lungs bilateral breath sounds are heard Abdomen is soft , tender Examination of lower extremity shows no significant edema [employer] exam grossly intact Results - Lab Results Most recent lab results Calcium 7.9 mg/dL (8.4-10.2) L 02/12/24 05:45 Magnesium 1.5 mg/dL (1.6-2.3) L 02/11/24 16:25 02/12/24 05:56 02/12/24 05:45 Assessment and Plan Assessment: 1. Acute kidney injury, ATN, nonoliguric and associated with hypovolemia, currently improved with IV hydration. Rhett inhibitors have been discontinued. UA is completely benign on 02/09/2024. Ultrasound shows no evidence of obstructive uropathy. 2. Chronic kidney disease, stage 2-3 with admission creatinine noted to be 0.9 mg/dL. patient follows with certified orthotist practice manager out of [facility]. 3. High-grade bowel obstruction status post laparoscopic lysis of adhesions 4. Hypernatremia associated with free water deficit, currently improved 5. 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 History of rheumatoid arthritis and SLE [facility] currently not on any specific therapy. 7. Hypertension, RHETT inhibitor's currently on hold. Blood pressure on the lower side. Plan: continue with IV fluids. Repeat labs in a.m. Continue to hold RHETT inhibitor's for now Check 25 hydroxy vitamin D level. Thank you for the consultation. We will continue to follow the patient with you during her hospitalization.
--- NOTE | 2024-02-12 13:29 | P.PN ---
Subjective Progress Note Date: 02/12/24 This is a 68-year-old female admitted on 02/09/2024, patient presented initially with chief complaint of abdominal pain started around 6 AM. Patient came in with severe pain 10 out of 10 in the umbilical area. She also felt nauseated, and she had a small amount of flatus. Workup in the ER revealed that the patient had high-grade small bowel obstruction noted on CT scan. Patient had nasogastric tube in place, continues to have abdominal pain around the umbilicus, her surgical history is mostly significant for previous hysterectomy and appendectomy with history of B-cell lymphoma status post bone marrow transplant. Patient did not improve with conservative measures, today she underwent robotic assisted laparoscopic lysis of adhesions. Postoperatively patient was a bit difficult to wean, and I was notified about this patient from Dr. Dodson. I accepted the patient to go to the ICU, however an hour later patient was weaned and extubated by anesthesia while in the recovery room. I came in to see the patient in the recovery room, and she looked very comfortable on nasal cannula, not in any distress. The surgeon was initially concerned about her hyponatremia and acute kidney injury, she also had oliguria. But she improved with fluid boluses, she was given D5W, and her follow-up labs were improving. Sodium went down from 1 55-1 49 her bicarb was noted to be a bit low at 15 but the patient had anion gap of only 4 which means the patient has mostly hyperchloremic none anion gap metabolic acidosis. BUN improved down to 35 creatinine improved to 1.2 9. Considering the improvement in her labs and considering the improvement in her hemodynamics and and her renal output, as wel l as improvement noted in her sodium I recommended that patient could possibly go to the regular medical floor, and we will continue to follow. If she develops any worsening clinical status, I will arrange for the patient to go back to ICU. At this point in time I believe the patient could be managed on medical surgical floor. The patient is seen today February 12, 2024 in follow-up on the regular medical floor. She is currently sitting up in bed. Awake and alert in no acute distress. Denies any worsening shortness of breath, cough or congestion. She is maintaining good O2 saturations in the upper 90s on 2 L/min per nasal cannula. She is afebrile. Hemodynamically stable. Ultrasound of the kidneys and bladder revealed multiple cystic lesions on the right and left kidney. No hydronephrosis. Blood cultures revealed no growth. White count 12.6. Hemoglobin 10.0. Platelets 179. Sodium 142. Potassium 4.2. Bicarb 21. BUN 46. Creatinine 1.75. Glucose 80. She remains on Zosyn. Heparin for DVT prophylaxis. Continued on Symbicort and albuterol. Saline at 100 MLS per hour. Objective - Vital Signs Vital signs: Vital Signs Temp 99.2 F 02/12/24 06:40 Pulse 78 02/12/24 06:40 Resp 14 02/12/24 06:40 BP 121/65 02/12/24 06:40 Pulse Ox 98 02/12/24 06:40 FiO2 Intake & Output 02/11/24 02/12/24 02/12/24 18:59 06:59 18:59 Intake Total 1800 240 Output Total 135 800 Balance 1665 -800 240 Weight 59.874 kg 54.5 kg Intake: IV 1800 Oral 240 Output: Urine 130 800 Estimated Blood Loss 5 Other: Voiding Method Bedside Commode Indwelling Catheter # Bowel Movements 1 - Exam GENERAL EXAM: Alert, pleasant 68-year-old female, sitting up in bed, on 2 L nasal cannula, comfortable in no apparent distress. HEAD: Normocephalic. EYES: Normal reaction of pupils, equal size. NOSE: Clear with pink turbinates. THROAT: No erythema or exudates. NECK: No masses, no JVD. CHEST: No chest wall deformity. LUNGS: Equal air entry with no crackles, wheeze, rhonchi or dullness. CVS: S1 and S2 normal with no audible murmur, regular rhythm. ABDOMEN: Abdominal incisions clean dry well-approximated. No he patosplenomegaly, normal bowel sounds, no guarding or rigidity. SPINE: No scoliosis or deformity SKIN: No rashes CENTRAL NERVOUS SYSTEM: No focal deficits, tone is normal in all 4 extremities. EXTREMITIES: There is no peripheral edema. No clubbing, no cyanosis. Peripheral pulses are intact. - Labs CBC & Chem 7: 02/12/24 05:56 02/12/24 05:45 Labs: Abnormal Lab Results - Last 24 Hours (Table) 02/11/24 02/11/24 02/11/24 Range/Units 16:25 16:25 18:18 WBC (4.50-10.00) X 10*3/uL RBC 2.65 L (3.80-5.40) m/uL Hgb 8.7 L D (11.4-16.0) gm/dL Hct 28.9 L (34.0-46.0) % MCV 109.1 H (80.0-100.0) fL MCH (27.0-32.0) pg MCHC 29.9 L (31.0-37.0) g/dL RDW (11.5-14.5) % Neutrophils # (1.80-7.70) X 10*3/uL Lymphocytes # 0.9 L (1.0-4.8) k/uL Monocytes # (0.20-1.00) X 10*3/uL Macrocytosis Marked A Crenated Cell Acanthocytes (Spur) Sodium 149 H 147 H (137-145) mmol/L Potassium 2.8 L (3.5-5.1) mmol/L Chloride 130 H 115 H (98-107) mmol/L Carbon Dioxide 15 L (22-30) mmol/L BUN 35 H 49 H (7-17) mg/dL Creatinine 1.29 H 2.00 H (0.52-1.04) mg/dL Glucose 178 H (74-99) mg/dL Calcium 5.4 L* 7.9 L (8.4-10.2) mg/dL Magnesium 1.5 L (1.6-2.3) mg/dL 02/12/24 02/12/24 Range/Units 05:45 05:56 WBC 12.63 H (4.50-10.00) X 10*3/uL RBC 3.08 L (3.80-5.40) m/uL Hgb 10.0 L (11.4-16.0) gm/dL Hct 32.6 L (34.0-46.0) % MCV 105.8 H (80.0-100.0) fL MCH 32.5 H (27.0-32.0) pg MCHC 30.7 L (31.0-37.0) g/dL RDW 15.2 H (11.5-14.5) % Neutrophils # 8.60 H (1.80-7.70) X 10*3/uL Lymphocytes # (1.0-4.8) k/uL Monocytes # 1.51 H (0.20-1.00) X 10*3/uL Macrocytosis Crenated Cell 2+ A Acanthocytes (Spur) 2+ A Sodium (137-145) mmol/L Potassium (3.5-5.1) mmol/L Chloride 116 H (98-107) mmol/L Carbon Dioxide 21 L (22-30) mmol/L BUN 46 H (7-17) mg/dL Creatinine 1.75 H (0.52-1.04) mg/dL Glucose (74-99) mg/dL Calcium 7.9 L (8.4-10.2) mg/dL Magnesium (1.6-2.3) mg/dL Microbiology - Last 24 Hours (Table) 02/09/24 11:56 Blood Culture - Preliminary Blood 02/09/24 11:56 Blood Culture - Preliminary Blood Assessment and Plan Assessment: High-grade small bowel obstruction, status post Robotic-assisted da Kari Xi laparoscopic with lysis of adhesions postoperative day #1 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 Acute kidney injury secondary to hypovolemia and hypotension, improving now with hydration compared to her renal functioning History of deep vein thrombosis Oliguria, improving with fluid boluses and the patient to be given more fluid bolus History of mild intermittent asthma History of depression History of hypothyroidism History of GERD without esophagitis Hypernatremia secondary to free water deficit improving Plan: The patient was seen and evaluated Labs and medications reviewed Currently stable on 2 L nasal cannula Hypernatremia is improving Remains on Zosyn Continued on bronchodilators From for DVT prophylaxis Titrate the FiO2 as tolerated Increase her activity as tolerated We will continue to follow I have personally seen and examined the patient, performed the documentation and the assessment and plan as written. Number of minutes spent on the visit: 10.
[2024-02-12 13:56] LABS: HCT 32.5 % (34.0-46.0); HGB 10.4 gm/dL (11.4-16.0); Hypochromasia Marked; MCH 33.9 pg (25.0-35.0); MCHC 31.9 g/dL (31.0-37.0); MCV 106.3 fL (80.0-100.0); Macrocytosis Moderate; Mean Platelet Volume 8.1; Platelet Count 182 k/uL (150-450); RBC 3.06 m/uL (3.80-5.40); RDW 13.4 % (11.5-15.5); WBC 10.2 k/uL (3.8-10.6)
[2024-02-12 16:20] LABS: ALT 19 U/L (4-34); AST 41 U/L (14-36); African American GFR (CKD) 40 (>60 ml/min/1.73 sqM); Albumin 2.6 g/dL (3.5-5.0); Albumin/Globulin Ratio 1.2; Alkaline Phosphatase 36 U/L (38-126); Anion Gap 7 mmol/L; Blood Urea Nitrogen 39 mg/dL (7-17); Calcium 7.5 mg/dL (8.4-10.2); Carbon Dioxide 18 mmol/L (22-30); Chloride 114 mmol/L (98-107); Globulin 2.2 g/dL; Glucose 86 mg/dL (74-99); Non-African American GFR(CKD) 34 (>60 ml/min/1.73 sqM); Potassium 3.8 mmol/L (3.5-5.1); Sodium 139 mmol/L (137-145); Total Bilirubin 0.4 mg/dL (0.2-1.3); Total Protein 4.8 g/dL (6.3-8.2)
--- NOTE | 2024-02-12 21:21 | P.PN ---
Subjective Progress Note Date: 02/12/24 The patient is a 68-year-old female who presents with acute onset bowel obstruction. Patient reported initial resolution of abdominal pain however additional diagnostic studies demonstrated closed-loop obstruction. s/p Robotic CHELSEY on cld today Objective - Vital Signs Vital signs: Vital Signs Temp 98.9 F 02/12/24 14:08 Pulse 79 02/12/24 14:08 Resp 18 02/12/24 14:08 BP 119/64 02/12/24 14:08 Pulse Ox 95 02/12/24 14:08 FiO2 Intake & Output 02/12/24 02/12/24 02/13/24 06:59 18:59 06:59 Intake Total 240 Output Total 800 550 Balance -800 -310 Weight 54.5 kg Intake: Oral 240 Output: Urine 800 550 Other: Voiding Method Indwelling Catheter # Bowel Movements 1 - Constitutional General appearance: Present: cooperative - EENT Eyes: Present: PERRLA. Absent: scleral icterus - Neck Neck: Present: normal ROM - Respiratory Respiratory: bilateral: CTA - Cardiovascular Heart sounds: normal: S1, S2 - Gastrointestinal General gastrointestinal: Present: normal bowel sounds - Labs CBC & Chem 7: 02/12/24 13:39 02/12/24 15:48 Labs: Abnormal Lab Results - Last 24 Hours (Table) 02/12/24 02/12/24 02/12/24 Range/Units 05:45 05:56 13:39 WBC 12.63 H (4.50-10.00) X 10*3/uL RBC 3.08 L 3.06 L (4.10-5.20) X 10*6/uL Hgb 10.0 L 10.4 L (12.0-15.0) g/dL Hct 32.6 L 32.5 L (37.2-46.3) % MCV 105.8 H 106.3 H (80.0-97.0) FL MCH 32.5 H (27.0-32.0) pg MCHC 30.7 L (32.0-37.0) g/dL RDW 15.2 H (11.5-14.5) % Neutrophils # 8.60 H (1.80-7.70) X 10*3/uL Monocytes # 1.51 H (0.20-1.00) X 10*3/uL Crenated Cell 2+ A Acanthocytes (Spur) 2+ A Chloride 116 H (98-107) mmol/L Carbon Dioxide 21 L (22-30) mmol/L BUN 46 H (7-17) mg/dL Creatinine 1.75 H (0.52-1.04) mg/dL Calcium 7.9 L (8.4-10.2) mg/dL AST (14-36) U/L Alkaline Phosphatase (38-126) U/L Total Protein (6.3-8.2) g/dL Albumin (3.5-5.0) g/dL 02/12/24 Range/Units 15:48 WBC (4.50-10.00) X 10*3/uL RBC (4.10-5.20) X 10*6/uL Hgb (12.0-15.0) g/dL Hct (37.2-46.3) % MCV (80.0-97.0) FL MCH (27.0-32.0) pg MCHC (32.0-37.0) g/dL RDW (11.5-14.5) % Neutrophils # (1.80-7.70) X 10*3/uL Monocytes # (0.20-1.00) X 10*3/uL Crenated Cell Acanthocytes (Spur) Chloride 114 H (98-107) mmol/L Carbon Dioxide 18 L (22-30) mmol/L BUN 39 H (7-17) mg/dL Creatinine 1.53 H (0.52-1.04) mg/dL Calcium 7.5 L (8.4-10.2) mg/dL AST 41 H (14-36) U/L Alkaline Phosphatase 36 L (38-126) U/L Total Protein 4.8 L (6.3-8.2) g/dL Albumin 2.6 L (3.5-5.0) g/dL Microbiology - Last 24 Hours (Table) 02/09/24 11:56 Blood Culture - Preliminary Blood 02/09/24 11:56 Blood Culture - Preliminary Blood Assessment and Plan Assessment: s/p CHELSEY POD#1 (1) SBO (small bowel obstruction) Current Visit: Yes Status: Acute Code(s): K56.609 - UNSP INTESTNL OBST, UNSP TO PARTIAL VERSUS COMPLETE OBST SNOMED Code(s): 683195727 Plan: POD#! on cld ambulate DVT Prophylaxix
[2024-02-13 03:38] LABS: ALT 19 U/L (4-34); AST 36 U/L (14-36); African American GFR (CKD) 45 (>60 ml/min/1.73 sqM); Albumin 2.3 g/dL (3.5-5.0); Albumin/Globulin Ratio 1.1; Alkaline Phosphatase 40 U/L (38-126); Anion Gap 3 mmol/L; Blood Urea Nitrogen 30 mg/dL (7-17); Calcium 7.7 mg/dL (8.4-10.2); Carbon Dioxide 21 mmol/L (22-30); Chloride 115 mmol/L (98-107); Globulin 2.1 g/dL; Glucose 87 mg/dL (74-99); Non-African American GFR(CKD) 39 (>60 ml/min/1.73 sqM); Potassium 3.5 mmol/L (3.5-5.1); Sodium 139 mmol/L (137-145); Total Bilirubin 0.4 mg/dL (0.2-1.3); Total Protein 4.4 g/dL (6.3-8.2)
[2024-02-13 03:52] LABS: Basophils % (A) 0 %; Eosinophils # (A) 0.2 k/uL (0-0.7); Eosinophils % (A) 3 %; HCT 27.4 % (34.0-46.0); Hypochromasia Slight; Lymphocytes # (A) 2.2 k/uL (1.0-4.8); Lymphocytes % (A) 30 %; MCH 33.1 pg (25.0-35.0); MCHC 32.1 g/dL (31.0-37.0); Macrocytosis Slight; Mean Platelet Volume 8.7; Monocytes # (A) 0.7 k/uL (0-1.0); Monocytes % (A) 10 %; Neutrophils # (A) 3.8 k/uL (1.3-7.7); Neutrophils % (A) 53 %; Platelet Count 158 k/uL (150-450); RBC 2.66 m/uL (3.80-5.40); RDW 13.4 % (11.5-15.5); WBC 7.1 k/uL (3.8-10.6)
[2024-02-13 04:00] LABS: HGB 8.8 gm/dL (11.4-16.0)
--- NOTE | 2024-02-13 09:20 | P.PN ---
Subjective Progress Note Date: 02/13/24 HISTORY OF PRESENT ILLNESS: 68-year-old woman my office patient who has an active history of rheumatoid arthritis, lupus, non-Hodgkin lymphoma, Previous history of deep venous thrombosis and pulmonary embolism, history of diffuse large B-cell lymphoma post bone marrow transplant also known to have recurrent history of anemia along with pancytopenia and neutropenia. She is known to have ongoing stage III chronic kidney disease and also active antiphospholipid antibody syndrome with hypercoagulation, on active treatment for peripheral neuropathy and known to be managed by rheumatology for rheumatoid arthritis and systemic lupus erythematous. Patient has been our office patient since. 89 very compliant with all her medical problem, medication and appointment. 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 After giving the pain over couple hours without any relief ended up coming to the emergency department where was seen and evaluated. She ended up having flat x-ray of the abdomen and CAT scan of the abdomen and pelvis which surprisingly showed high-grade small bowel obstruction located in the right side of the abdomen with loop dilated up to 3.1 cm with moderate to severe reactive mesenteric edema and mild free fluid also as she had some annular narrowing and thickening of the distal gastric body and antrum probably due to the distention can benefit from direct visualization eventually with an EGD and she had some fluid retained in the distal esophagus with circumferential wall thickening consistent with esophagitis and active reflux esophagitis. Her laboratory value shows no sign of anemia with hemoglobin of 11.6 also kidney function test have improved significantly from her regular borderline with cre atinine 0.99.32 blood sugar was mildly elevated only with normal liver function test UA was negative lactic acid was 1.0. Patient was started on IV hydration, IV pain meds, NG tube was placed send an call general surgery who wanted patient to be admitted to medical floor them on consult. 02/10/2024: Continue to have NG tube for decompression still n.p.o. continue IV fluid seen general surgery for possible intervention, she is going for Small bowel x-ray along with a flat abdominal x-ray, surgery is not ready to do intervention yet. Her laboratory value with white blood cell climb up to 11,700 creatinine is up multiple to 1.3 with GFR down to 44 blood sugar still marginal where it ambulates up to 138. UA was negative. Again continue supportive care and conservative management yet if does not resolve she will require probably surgery. 02/11/2024: She is still very sick still have an NG tube in with decompression her x-ray still showing high-grade obstruction she is probably going for surgery today for robotic assisted lysis of adhesion with general surgery. Patient remain on hydration but sadly she had an acute kidney injury with a kidney function declined today compared to before we will continue aggressive hydration until her surgery and repeat chemistry with kidney function today and tomorrow morning. Awaiting to go for her surgery today. 02/12/2024: Patient is sitting in bed feeling much better, her NG tube is out, she had robotic assisted lysis of adhesion yesterday successfully with no major complication. Patient had significant change in kidney function looks very weird her kidney function changed from stage II to stage IIIb then improved slight bit and then decline. Will continue hydration 130 cc of normal saline an hour run ultrasound of the kidney patient will be seen nephrology will repeat her CMP at 3:00 in the afternoon keep the Mack catheter for better watch and manage her urine output and fluid till her kidney function improved and we can remove it later today or early tomorrow morning. February 13, 2024: Patient is doing very well no abdominal pain no nausea or vomiting she been doing clear liquid diet at this point tolerating it well. Kidney function has improved significantly last 24 hours creatinine is down to 1.37 with GFR running at 39, patient seen nephrology yesterday agree with the current management. Will remove Mack catheter today continue IV hydration repeat another CMP tomorrow. General surgery might titrate diet today hopefully patient be able to go home tomorrow. REVIEW OF SYSTEMS: CONSTITUTIONAL: Well-developed no acute respiratory distress. Has an NG tube in. EYES: No icterus sclerae, no conjunctivitis. EARS, NOSE, MOUTH, THROAT, and FACE: No sore throat, lymphadenopathy, carotid bruits or deformity. RESPIRATORY: No SOB cough or wheezes. CARDIOVASCULAR: No CP, Palpitation, PND, Orthopnea, or angina. GASTROINTESTINAL: Slightly distended abdomen with discomfort in the mid epigastric area and mid abdominal region area not able to find any rebound no bowel sounds. GENITOURINARY: Negative for Hematuria or UTI, no kidney stones. INTEGUMENT/BREAST: Negative for any muscular injury with mild osteoarthritis.. HEMATOLOGIC/LYMPHATIC: Negative for bleed or purpura. MUSCULOSKELTAL: Negative for Myalgia or arthralgia. NEURLOGICAL: No LOC, Sz or syncope, blurred vision dizziness or abnormality.. BEHAVIORAL/PSYCH: Negative. ENDOCRINE: Negative. PHYSICAL EXAMINATION: General Appearance: Alert, cooperative, no distress, appears stated age. Neck HEENT: Supple, no lymphadenopathy, no thyroid enlargement, no carotid bruits. Has NG tube in. Lungs: Clear to auscultation without crackles or wheezes no rhonchi, no deformity. Chest Wall: Chest wall normal expansion with deep inspiration no tenderness and no deformity was found on exam, no costochondral pain or discomfort. Heart: Regular rate and rhythm, S1, S2 normal, no murmur, rub or gallop. Back: Symmetric, no curvature, ROM normal, no CVA tenderness. Abdomen: Her surgical site looks very clean, soft abdomen positive bowel sounds no rebound or rigidity slightly bit tender in the lower part. Extremities: Extremities normal, atraumatic, no cyanosis or edema. Pulses: 2+ and symmetric. Skin: Skin color, texture, tugor normal, no rashes or lesions. Neurologic: Alert oriented x3 cranial nerves II through XII intact, no motor deficit, no abnormal balance or gait. ASSESSMENT AND PLAN: _High-grade small bowel obstruction: Post robotic assisted lysis of adhesions done successfully doing well. _ Gastric Outlet Syndrome: Eventually will need an EGD continue proton pump inhibitor for now. Still on proton pump inhibitor. Will still have to go for an EGD at some point. _Acute kidney injury: DC Mack catheter continue IV hydration at 100 cc an hour for the next 24 hours. Advance diet gradually _History of rheumatoid arthritis and systemic lupus erythematous: Still seen rheumatology has not been on any active medication lately. _History of non-Hodgkin lymphoma still seen oncology and again has been doing well in remission at this point. No sign of metastasis or any abnormality causing her current symptom still not quite sure if there is any correlation. _Active treatment for hypertension: Remain on lisinopril 10 mg a day along with metoprolol succinate 100 mg daily. _Hyperlipidemia: Resume rosuvastatin 10 mg daily. _Hypothyroidism: Will continue patient on Synthroid 100 mcg daily. _Activity manage reactive airway/asthma remain on Advair along with rescue inhaler. Prognosis: Good Discussion: Advance diet gradually hopefully patient be discharged home tomorrow.. Objective - Vital Signs Vital signs: Vital Signs Temp 99.0 F 02/13/24 07:00 Pulse 81 02/13/24 07:00 Resp 18 02/13/24 07:00 BP 131/70 02/13/24 07:00 Pulse Ox 91 L 02/13/24 07:00 FiO2 Intake & Output 02/12/24 02/13/24 02/13/24 18:59 06:59 18:59 Intake Total 240 Output Total 550 600 Balance -310 -600 Weight 64.3 kg Intake: Oral 240 Output: Urine 550 600 Other: Voiding Method Indwelling Catheter Indwelling Catheter # Bowel Movements 1 1 - Labs CBC & Chem 7: 02/13/24 02:51 02/13/24 02:51 Labs: Abnormal Lab Results - Last 24 Hours (Table) 02/12/24 02/12/24 02/12/24 Range/Units 05:56 13:39 15:48 WBC 12.63 H (4.50-10.00) X 10*3/uL RBC 3.08 L 3.06 L (4.10-5.20) X 10*6/uL Hgb 10.0 L 10.4 L (12.0-15.0) g/dL Hct 32.6 L 32.5 L (37.2-46.3) % MCV 105.8 H 106.3 H (80.0-97.0) FL MCH 32.5 H (27.0-32.0) pg MCHC 30.7 L (32.0-37.0) g/dL RDW 15.2 H (11.5-14.5) % Neutrophils # 8.60 H (1.80-7.70) X 10*3/uL Monocytes # 1.51 H (0.20-1.00) X 10*3/uL Crenated Cell 2+ A Acanthocytes (Spur) 2+ A Chloride 114 H (98-107) mmol/L Carbon Dioxide 18 L (22-30) mmol/L BUN 39 H (7-17) mg/dL Creatinine 1.53 H (0.52-1.04) mg/dL Calcium 7.5 L (8.4-10.2) mg/dL Magnesium (1.6-2.3) mg/dL AST 41 H (14-36) U/L Alkaline Phosphatase 36 L (38-126) U/L Total Protein 4.8 L (6.3-8.2) g/dL Albumin 2.6 L (3.5-5.0) g/dL 02/13/24 02/13/24 02/13/24 Range/Units 02:51 02:51 02:51 WBC (4.50-10.00) X 10*3/uL RBC 2.66 L (4.10-5.20) X 10*6/uL Hgb 8.8 L D (12.0-15.0) g/dL Hct 27.4 L (37.2-46.3) % MCV 103.0 H (80.0-97.0) FL MCH (27.0-32.0) pg MCHC (32.0-37.0) g/dL RDW (11.5-14.5) % Neutrophils # (1.80-7.70) X 10*3/uL Monocytes # (0.20-1.00) X 10*3/uL Crenated Cell Acanthocytes (Spur) Chloride 115 H (98-107) mmol/L Carbon Dioxide 21 L (22-30) mmol/L BUN 30 H (7-17) mg/dL Creatinine 1.37 H (0.52-1.04) mg/dL Calcium 7.7 L (8.4-10.2) mg/dL Magnesium 2.5 H (1.6-2.3) mg/dL AST (14-36) U/L Alkaline Phosphatase (38-126) U/L Total Protein 4.4 L (6.3-8.2) g/dL Albumin 2.3 L (3.5-5.0) g/dL Microbiology - Last 24 Hours (Table) 02/09/24 11:56 Blood Culture - Preliminary Blood 02/09/24 11:56 Blood Culture - Preliminary Blood
--- NOTE | 2024-02-13 09:26 | P.PN ---
Subjective Progress Note Date: 02/13/24 The patient status post laparoscopic lysis of adhesions. Patient remains unchanged. She is tolerating some diet. On exam vital signs appear stable. Abdomen is soft. Status post laparoscopic lysis of adhesions. Patient will have her diet advanced as tolerated. Objective - Vital Signs Vital signs: Vital Signs Temp 99.0 F 02/13/24 07:00 Pulse 81 02/13/24 07:00 Resp 18 02/13/24 07:00 BP 131/70 02/13/24 07:00 Pulse Ox 91 L 02/13/24 07:00 FiO2 Intake & Output 02/12/24 02/13/24 02/13/24 18:59 06:59 18:59 Intake Total 240 Output Total 550 600 Balance -310 -600 Weight 64.3 kg Intake: Oral 240 Output: Urine 550 600 Other: Voiding Method Indwelling Catheter Indwelling Catheter # Bowel Movements 1 1 - Labs CBC & Chem 7: 02/13/24 02:51 02/13/24 02:51 Labs: Abnormal Lab Results - Last 24 Hours (Table) 02/12/24 02/12/24 02/12/24 Range/Units 05:56 13:39 15:48 WBC 12.63 H (4.50-10.00) X 10*3/uL RBC 3.08 L 3.06 L (4.10-5.20) X 10*6/uL Hgb 10.0 L 10.4 L (12.0-15.0) g/dL Hct 32.6 L 32.5 L (37.2-46.3) % MCV 105.8 H 106.3 H (80.0-97.0) FL MCH 32.5 H (27.0-32.0) pg MCHC 30.7 L (32.0-37.0) g/dL RDW 15.2 H (11.5-14.5) % Neutrophils # 8.60 H (1.80-7.70) X 10*3/uL Monocytes # 1.51 H (0.20-1.00) X 10*3/uL Crenated Cell 2+ A Acanthocytes (Spur) 2+ A Chloride 114 H (98-107) mmol/L Carbon Dioxide 18 L (22-30) mmol/L BUN 39 H (7-17) mg/dL Creatinine 1.53 H (0.52-1.04) mg/dL Calcium 7.5 L (8.4-10.2) mg/dL Magnesium (1.6-2.3) mg/dL AST 41 H (14-36) U/L Alkaline Phosphatase 36 L (38-126) U/L Total Protein 4.8 L (6.3-8.2) g/dL Albumin 2.6 L (3.5-5.0) g/dL 02/13/24 02/13/24 02/13/24 Range/Units 02:51 02:51 02:51 WBC (4.50-10.00) X 10*3/uL RBC 2.66 L (4.10-5.20) X 10*6/uL Hgb 8.8 L D (12.0-15.0) g/dL Hct 27.4 L (37.2-46.3) % MCV 103.0 H (80.0-97.0) FL MCH (27.0-32.0) pg MCHC (32.0-37.0) g/dL RDW (11.5-14.5) % Neutrophils # (1.80-7.70) X 10*3/uL Monocytes # (0.20-1.00) X 10*3/uL Crenated Cell Acanthocytes (Spur) Chloride 115 H (98-107) mmol/L Carbon Dioxide 21 L (22-30) mmol/L BUN 30 H (7-17) mg/dL Creatinine 1.37 H (0.52-1.04) mg/dL Calcium 7.7 L (8.4-10.2) mg/dL Magnesium 2.5 H (1.6-2.3) mg/dL AST (14-36) U/L Alkaline Phosphatase (38-126) U/L Total Protein 4.4 L (6.3-8.2) g/dL Albumin 2.3 L (3.5-5.0) g/dL Microbiology - Last 24 Hours (Table) 02/09/24 11:56 Blood Culture - Preliminary Blood 02/09/24 11:56 Blood Culture - Preliminary Blood
--- NOTE | 2024-02-13 12:05 | P.PN ---
Subjective Patient is seen for follow-up for acute kidney injury. Renal function has improved. Patient is maintained on IV fluids. Serum creatinine down to 1.3 mg/dL. No significant complaints today. Objective - Vital Signs Vital signs: Vital Signs Temp 99.0 F 02/13/24 07:00 Pulse 81 02/13/24 07:00 Resp 18 02/13/24 07:00 BP 131/70 02/13/24 07:00 Pulse Ox 91 L 02/13/24 07:00 FiO2 Intake & Output 02/12/24 02/13/24 02/13/24 18:59 06:59 18:59 Intake Total 240 Output Total 550 600 300 Balance -310 -600 -300 Weight 64.3 kg Intake: Oral 240 Output: Urine 550 600 300 Other: Voiding Method Indwelling Catheter Indwelling Catheter # Voids 1 # Bowel Movements 1 1 1 - Exam patient is awake, comfortable, no acute distress Alert oriented 3 Examination of the heart S1 and S2 Examination of the lungs bilateral breath sounds are heard Abdomen is soft , tender Examination of lower extremity shows no significant edema P[employer] WORK[employer] exam grossly intact - Labs CBC & Chem 7: 02/13/24 02:51 02/13/24 02:51 Labs: Abnormal Lab Results - Last 24 Hours (Table) 02/12/24 02/12/24 02/13/24 Range/Units 13:39 15:48 02:51 RBC 3.06 L 2.66 L (3.80-5.40) m/uL Hgb 10.4 L 8.8 L D (11.4-16.0) gm/dL Hct 32.5 L 27.4 L (34.0-46.0) % MCV 106.3 H 103.0 H (80.0-100.0) fL Chloride 114 H (98-107) mmol/L Carbon Dioxide 18 L (22-30) mmol/L BUN 39 H (7-17) mg/dL Creatinine 1.53 H (0.52-1.04) mg/dL Calcium 7.5 L (8.4-10.2) mg/dL Magnesium (1.6-2.3) mg/dL AST 41 H (14-36) U/L Alkaline Phosphatase 36 L (38-126) U/L Total Protein 4.8 L (6.3-8.2) g/dL Albumin 2.6 L (3.5-5.0) g/dL 02/13/24 02/13/24 Range/Units 02:51 02:51 RBC (3.80-5.40) m/uL Hgb (11.4-16.0) gm/dL Hct (34.0-46.0) % MCV (80.0-100.0) fL Chloride 115 H (98-107) mmol/L Carbon Dioxide 21 L (22-30) mmol/L BUN 30 H (7-17) mg/dL Creatinine 1.37 H (0.52-1.04) mg/dL Calcium 7.7 L (8.4-10.2) mg/dL Magnesium 2.5 H (1.6-2.3) mg/dL AST (14-36) U/L Alkaline Phosphatase (38-126) U/L Total Protein 4.4 L (6.3-8.2) g/dL Albumin 2.3 L (3.5-5.0) g/dL Microbiology - Last 24 Hours (Table) 02/09/24 11:56 Blood Culture - Preliminary Blood 02/09/24 11:56 Blood Culture - Preliminary Blood Assessment and Plan Assessment: 1. Acute kidney injury, ATN, nonoliguric and associated with hypovolemia, cu rrently improved with IV hydration. Rhett inhibitors have been discontinued. UA is completely benign on 02/09/2024. Ultrasound shows no evidence of obstructive uropathy. 2. Chronic kidney disease, stage 2-3 with admission creatinine noted to be 0.9 mg/dL. patient follows with [facility] out of [facility]. 3. High-grade bowel obstruction status post laparoscopic lysis of adhesions 4. Hypernatremia associated with free water deficit, currently improved 5. 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 History of rheumatoid arthritis and SLE being followed at [facility], currently not on any specific therapy. 7. Hypertension, RHETT inhibitor's currently on hold. Blood pressure on the lower side. Plan: continue with IV fluids. Decrease IV fluids in a.m. if able to tolerate oral intake well Repeat labs in a.m. Continue to hold RHETT inhibitor's for now
--- NOTE | 2024-02-13 14:03 | P.PN ---
Subjective Progress Note Date: 02/13/24 This is a 68-year-old female admitted on 02/09/2024, patient presented initially with chief complaint of abdominal pain started around 6 AM. Patient came in with severe pain 10 out of 10 in the umbilical area. She also felt nauseated, and she had a small amount of flatus. Workup in the ER revealed that the patient had high-grade small bowel obstruction noted on CT scan. Patient had nasogastric tube in place, continues to have abdominal pain around the umbilicus, her surgical history is mostly significant for previous hysterectomy and appendectomy with history of B-cell lymphoma status post bone marrow transplant. Patient did not improve with conservative measures, today she underwent robotic assisted laparoscopic lysis of adhesions. Postoperatively patient was a bit difficult to wean, and I was notified about this patient from Dr. Dodson. I accepted the patient to go to the ICU, however an hour later patient was weaned and extubated by anesthesia while in the recovery room. I came in to see the patient in the recovery room, and she looked very comfortable on nasal cannula, not in any distress. The surgeon was initially concerned about her hyponatremia and acute kidney injury, she also had oliguria. But she improved with fluid boluses, she was given D5W, and her follow-up labs were improving. Sodium went down from 1 55-1 49 her bicarb was noted to be a bit low at 15 but the patient had anion gap of only 4 which means the patient has mostly hyperchloremic none anion gap metabolic acidosis. BUN improved down to 35 creatinine improved to 1.2 9. Considering the improvement in her labs and considering the improvement in her hemodynamics and and her renal output, as wel l as improvement noted in her sodium I recommended that patient could possibly go to the regular medical floor, and we will continue to follow. If she develops any worsening clinical status, I will arrange for the patient to go back to ICU. At this point in time I believe the patient could be managed on medical surgical floor. The patient is seen today February 12, 2024 in follow-up on the regular medical floor. She is currently sitting up in bed. Awake and alert in no acute distress. Denies any worsening shortness of breath, cough or congestion. She is maintaining good O2 saturations in the upper 90s on 2 L/min per nasal cannula. She is afebrile. Hemodynamically stable. Ultrasound of the kidneys and bladder revealed multiple cystic lesions on the right and left kidney. No hydronephrosis. Blood cultures revealed no growth. White count 12.6. Hemoglobin 10.0. Platelets 179. Sodium 142. Potassium 4.2. Bicarb 21. BUN 46. Creatinine 1.75. Glucose 80. She remains on Zosyn. Heparin for DVT prophylaxis. Continued on Symbicort and albuterol. Saline at 100 MLS per hour. The patient is seen today February 13, 2024 in follow-up on the regular medical floor. She is awake and alert in no acute distress. She is sitting up in a chair. She denies any shortness of breath, cough or congestion. She denies any significant abdominal discomfort. She is feeling quite well. Blood culture reveals no growth to date. White count 7.1. Hemoglobin 8.8. Platelets 158. Sodium 139. Potassium 3.5. Bicarb 21. BUN 30. Creatinine 1.37. Glucose 87. She remains on Symbicort, Singulair, albuterol. Heparin for DVT prophylaxis. Remains on Zosyn. Normal saline at 100 MLS per hour. Objective - Vital Signs Vital signs: Vital Signs Temp 99.0 F 02/13/24 07:00 Pulse 81 02/13/24 07:00 Resp 18 02/13/24 07:00 BP 131/70 02/13/24 07:00 Pulse Ox 91 L 02/13/24 07:00 FiO2 Intake & Output 02/12/24 02/13/24 02/13/24 18:59 06:59 18:59 Intake Total 240 Output Total 550 600 300 Balance -310 -600 -300 Weight 64.3 kg Intake: Oral 240 Output: Urine 550 600 300 Other: Voiding Method Indwelling Catheter Indwelling Catheter # Voids 1 # Bowel Movements 1 1 1 - Exam GENERAL EXAM: Alert, pleasant 68-year-old female, up in a chair, on room air, comfortable in no apparent distress. HEAD: Normocephalic. EYES: Normal reaction of pupils, equal size. NOSE: Clear with pink turbinates. THROAT: No erythema or exudates. NECK: No masses, no JVD. CHEST: No chest wall deformity. LUNGS: Equal air entry with no crackles, wheeze, rhonchi or dullness. CVS: S1 and S2 normal with no audible murmur, regular rhythm. ABDOMEN: Abdominal incisions clean dry well-approximated. No hepatosplenomegaly, normal bowel sounds, no guarding or rigidity. SPINE: No scoliosis or deformity SKIN: No rashes CENTRAL NERVOUS SYSTEM: No focal deficits, tone is normal in all 4 extremities. EXTREMITIES: There is no peripheral edema. No clubbing, no cyanosis. Peripheral pulses are intact. - Labs CBC & Chem 7: 02/13/24 02:51 02/13/24 02:51 Labs: Abnormal Lab Results - Last 24 Hours (Table) 02/12/24 02/13/24 02/13/24 Range/Units 15:48 02:51 02:51 RBC 2.66 L (3.80-5.40) m/uL Hgb 8.8 L D (11.4-16.0) gm/dL Hct 27.4 L (34.0-46.0) % MCV 103.0 H (80.0-100.0) fL Chloride 114 H 115 H (98-107) mmol/L Carbon Dioxide 18 L 21 L (22-30) mmol/L BUN 39 H 30 H (7-17) mg/dL Creatinine 1.53 H 1.37 H (0.52-1.04) mg/dL Calcium 7.5 L 7.7 L (8.4-10.2) mg/dL Magnesium (1.6-2.3) mg/dL AST 41 H (14-36) U/L Alkaline Phosphatase 36 L (38-126) U/L Total Protein 4.8 L 4.4 L (6.3-8.2) g/dL Albumin 2.6 L 2.3 L (3.5-5.0) g/dL 02/13/24 Range/Units 02:51 RBC (3.80-5.40) m/uL Hgb (11.4-16.0) gm/dL Hct (34.0-46.0) % MCV (80.0-100.0) fL Chloride (98-107) mmol/L Carbon Dioxide (22-30) mmol/L BUN (7-17) mg/dL Creatinine (0.52-1.04) mg/dL Calcium (8.4-10.2) mg/dL Magnesium 2.5 H (1.6-2.3) mg/dL AST (14-36) U/L Alkaline Phosphatase (38-126) U/L Total Protein (6.3-8.2) g/dL Albumin (3.5-5.0) g/dL Microbiology - Last 24 Hours (Table) 02/09/24 11:56 Blood Culture - Preliminary Blood 02/09/24 11:56 Blood Culture - Preliminary Blood Assessment and Plan Assessment: High-grade small bowel obstruction, status post Robotic-assisted da Kari Xi laparoscopic with lysis of adhesions postoperative day #2 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 Acute kidney injury secondary to hypovolemia and hypotension, improving now with hydration compared to her renal functioning History of deep vein thrombosis Oliguria, improving with fluid boluses and the patient to be given more fluid lauren ed History of mild intermittent asthma History of depression History of hypothyroidism History of GERD without esophagitis Hypernatremia secondary to free water deficit improving Plan: The patient was seen and evaluated Labs and medications reviewed Currently stable on room air Remains on Zosyn Continued on bronchodilators Heparin for DVT prophylaxis Increase her activity as tolerated I have personally seen and examined the patient, performed the documentation and the assessment and plan as written. Number of minutes spent on the visit: 10.
--- NOTE | 2024-02-14 08:03 | P.DS ---
Providers Date of admission: 02/09/24 11:17 Attending physician: Quentin Espinosa Consults: 02/09/24 11:17 Consult Physician Routine Consulting Provider: Liz Dodson Consult Reason/Comments: sbo Do you want consulting provider notified?: Already Contacted 02/11/24 14:56 Consult Physician Stat Consulting Provider: Yamile Johnson Consult Reason/Comments: Acute renal failure, oliguria Do you want consulting provider notified?: Yes Primary care physician: Quentin Espinosa [facility] Course: HISTORY OF PRESENT ILLNESS: 68-year-old woman my office patient who has an active history of rheumatoid arthritis, lupus, non-Hodgkin lymphoma, Previous history of deep venous thrombosis and pulmonary embolism, history of diffuse large B-cell lymphoma post bone marrow transplant also known to have recurrent history of anemia along with pancytopenia and neutropenia. She is known to have ongoing stage III chronic kidney disease and also active antiphospholipid antibody syndrome with hypercoagulation, on active treatment for peripheral neuropathy and known to be managed by rheumatology for rheumatoid arthritis and systemic lupus erythematous. Patient has been our office patient since. 89 very compliant with all her medical problem, medication and appointment. She presented to the emergency department at [facility] on 02/09/2024 because of sudden onset of mid abdominal pain developed folder hand she had her coffee and light breakfast and all of a sudden developed to have intractable accelerated worsening sharp pain in the middle around the umbilical area fo llowing her pain she ended up having 2 bowel movement and her pain become much worse she felt much better when she lays down straight on the ground with stating her feet. After giving the pain over couple hours without any relief ended up coming to the emergency department where was seen and evaluated. She ended up having flat x-ray of the abdomen and CAT scan of the abdomen and pelvis which surprisingly showed high-grade small bowel obstruction located in the right side of the abdomen with loop dilated up to 3.1 cm with moderate to severe reactive mesenteric edema and mild free fluid also as she had some annular narrowing and thickening of the distal gastric body and antrum probably due to the distention can benefit from direct visualization eventually with an EGD and she had some fluid retained in the distal esophagus with circumferential wall thickening consistent with esophagitis and active reflux esophagitis. Her laboratory value shows no sign of anemia with hemoglobin of 11.6 also kidney function test have improved significantly from her regular borderline with creatinine 0.99.32 blood sugar was mildly elevated only with normal liver function test UA was negative lactic acid was 1.0. Patient was started on IV hydration, IV pain meds, NG tube was placed send an call general surgery who wanted patient to be admitted to medical floor them on consult. 02/10/2024: Continue to have NG tube for decompression still n.p.o. continue IV fluid seen general surgery for possible intervention, she is going for Small bowel x-ray along with a flat abdominal x-ray, surgery is not ready to do intervention yet. Her laboratory value with white blood cell climb up to 11,700 creatinine is up multiple to 1.3 with GFR down to 44 blood sugar still marginal where it ambulates up to 138. UA was negative. Again continue supportive care and conservative management yet if does not resolve she will require probably surgery. 02/11/2024: She is still very sick still have an NG tube in with decompression her x-ray still showing high-grade obstruction she is probably going for surgery today for robotic assisted lysis of adhesion with general surgery. Patient remain on hydration but sadly she had an acute kidney injury with a kidney function declined today compared to before we will continue aggressive hydration until her surgery and repeat chemistry with kidney function today and tomorrow morning. Awaiting to go for her surgery today. 02/12/2024: Patient is sitting in bed feeling much better, her NG tube is out, she had robotic assisted lysis of adhesion yesterday successfully with no major complication. Patient had significant change in kidney function looks very weird her kidney function changed from stage II to stage IIIb then improved slight bit and then decline. Will continue hydration 130 cc of normal saline an hour run ultrasound of the kidney patient will be seen nephrology will repeat her CMP at 3:00 in the afternoon keep the Mack catheter for better watch and manage her urine output and fluid till her kidney function improved and we can remove it later today or early tomorrow morning. February 13, 2024: Patient is doing very well no abdominal pain no nausea or vomiting she been doing clear liquid diet at this point tolerating it well. Kidney function has improved significantly last 24 hours creatinine is down to 1.37 with GFR running at 39, patient seen nephrology yesterday agree with the current management. Will remove Mack catheter today continue IV hydration repeat another CMP tomorrow. General surgery might titrate diet today hopefully patient be able to go home tomorrow. February 14, 2024: Patient is doing much better so far has been doing well she is on soft diet we will titrate up to full regular diet. Her lab is pending this morning kidney function is close to be normal or close to her baseline, continue IV hydration she will receive her last dose of Zosyn and stop she does not need to be on any oral antibiotic when she leaves hospital, she is describing slight yeast infection will do 1 dose of Diflucan watch in the hospital after her Zosyn is done. After seen by general surgeon today after her lab is done patient is going home. REVIEW OF SYSTEMS: CONSTITUTIONAL: Well-developed no acute respiratory distress. Has an NG tube in. EYES: No icterus sclerae, no conjunctivitis. EARS, NOSE, MOUTH, THROAT, and FACE: No sore throat, lymphadenopathy, carotid bruits or deformity. RESPIRATORY: No SOB cough or wheezes. CARDIOVASCULAR: No CP, Palpitation, PND, Orthopnea, or angina. GASTROINTESTINAL: Slightly distended abdomen with discomfort in the mid epigastric area and mid abdominal region area not able to find any rebound no bowel sounds. GENITOURINARY: Negative for Hematuria or UTI, no kidney stones. INTEGUMENT/BREAST: Negative for any muscular injury with mild osteoarthritis.. HEMATOLOGIC/LYMPHATIC: Negative for bleed or purpura. MUSCULOSKELTAL: Negative for Myalgia or arthralgia. NEURLOGICAL: No LOC, Sz or syncope, blurred vision dizziness or abnormality.. BEHAVIORAL/PSYCH: Negative. ENDOCRINE: Negative. PHYSICAL EXAMINATION: General Appearance: Alert, cooperative, no distress, appears stated age. Neck HEENT: Supple, no lymphadenopathy, no thyroid enlargement, no carotid bruits. Has NG tube in. Lungs: Clear to auscultation without crackles or wheezes no rhonchi, no deformity. Chest Wall: Chest wall normal expansion with deep inspiration no tenderness and no deformity was found on exam, no costochondral pain or discomfort. Heart: Regular rate and rhythm, S1, S2 normal, no murmur, rub or gallop. Back: Symmetric, no curvature, ROM normal, no CVA tenderness. Abdomen: Her surgical site looks very clean, soft abdomen positive bowel sounds no rebound or rigidity slightly bit tender in the lower part. Extremities: Extremities normal, atraumatic, no cyanosis or edema. Pulses: 2+ and symmetric. Skin: Skin color, texture, tugor normal, no rashes or lesions. Neurologic: Alert oriented x3 cranial nerves II through XII intact, no motor deficit, no abnormal balance or gait. ASSESSMENT AND PLAN: _High-grade small bowel obstruction: Post robotic assisted lysis of adhesions done successfully doing well. Doing very well with no complication. _ Gastric Outlet Syndrome: Eventually will need an EGD continue proton pump inhibitor for now. Still on proton pump inhibitor. Will still have to go for an EGD at some point. _Acute kidney injury: DC Mack catheter continue IV hydration at 100 cc an hour for the next 24 hours. Advance diet gradually _History of rheumatoid arthritis and systemic lupus erythematous: Still seen rheumatology has not been on any active medication lately. _History of non-Hodgkin lymphoma still seen oncology and again has been doing well in remission at this point. No sign of metastasis or any abnormality causing her current symptom still not quite sure if there is any correlation. _Active treatment for hypertension: Remain on lisinopril 10 mg a day along with metoprolol succinate 100 mg daily. _Hyperlipidemia: Resume rosuvastatin 10 mg daily. _Hypothyroidism: Will continue patient on Synthroid 100 mcg daily. _Activity manage reactive airway/asthma remain on Advair along with rescue inhaler. Prognosis: Good Discussion: Advance diet waiting for her lab for this morning patient will be discharged home today. Hospital course: Patient was hospitalized with severe abdominal pain As high-grade small bowel obstruction secondary to adhesion, conservative management with NG tube for the first 2 days had failed repeat x-ray continue to show severe acute obstruction also showed what looks like gastric outlet syndrome. Patient ended up going to the OR and had robotic surgery successfully with Dr. Dodson. Significant decline in kidney function last 24 hours before surgery with hydration and consultation for nephrology patient has done very well with sodium bicarbonate and hydration watch her urine output. Kidney function is close to its baseline. Pain is under control patient is back on almost regular diet waiting for final blood test this morning patient be able to discharge home today to be seen in the office sometime in the next 3 to 5 days another blood test for CMP CBC be done in the office. Patient will need probably further arrangement for EGD for gastric outlet syndrome to make sure did not have any obstruction or scar tissue causing slight problem might require help. Time spent on discharging patient was over 35 minutes. Patient Condition at Discharge: Stable Plan - Discharge Summary New Discharge Prescriptions: Continue Levothyroxine Sodium [Synthroid] 100 mcg PO DAILY Aspirin EC [Ecotrin Low Dose] 81 mg PO HS Rosuvastatin Calcium 10 mg PO HS Montelukast [Singulair] 10 mg PO HS Proctocort 30mg Suppository 30 mg RECTAL HS PRN PRN Reason: Hemorrhoids Metoprolol Succinate (ER) [Toprol XL] 100 mg PO DAILY Estradiol Cream [Estrace Cream 0.01%] 1 gram VAGINAL HS lisinopriL [Prinivil] 10 mg PO DAILY Carboxymethylcellulose Sodium [Refresh Tears] 1 - 2 drop BOTH EYES DIRECTED PRN PRN Reason: Dry Eye(S) Cetirizine HCl [Zyrtec] 10 mg PO DAILY Calcium Carbonate [Calcium] 600 mg PO W/SUPPER Fluticasone Propion/Salmeterol [Advair 250-50 Diskus] 1 puff INHALATION RT- BID Albuterol Sulfate [Albuterol Sulfate Hfa] 1 - 2 puff PO RT-Q6H PRN PRN Reason: Shortness Of Breath Lifitegrast [Xiidra] 1 drop BOTH EYES BID Discharge Medication List Levothyroxine Sodium [Synthroid] 100 mcg PO DAILY 06/26/15 [History] Aspirin EC [Ecotrin Low Dose] 81 mg PO HS 05/23/21 [History] Calcium Carbonate [Calcium] 600 mg PO W/SUPPER 05/23/21 [History] Cetirizine HCl [Zyrtec] 10 mg PO DAILY 05/23/21 [History] Estradiol Cream [Estrace Cream 0.01%] 1 gram VAGINAL HS 05/23/21 [History] Fluticasone Propion/Salmeterol [Advair 250-50 Diskus] 1 puff INHALATION RT-BID 05/23/21 [History] Metoprolol Succinate (ER) [Toprol XL] 100 mg PO DAILY 05/23/21 [History] Montelukast [Singulair] 10 mg PO HS 05/23/21 [History] Proctocort 30mg Suppository 30 mg RECTAL HS PRN 05/23/21 [History] Rosuvastatin Calcium 10 mg PO HS 05/23/21 [History] Albuterol Sulfate [Albuterol Sulfate Hfa] 1 - 2 puff PO RT-Q6H PRN 02/09/24 [History] Carboxymethylcellulose Sodium [Refresh Tears] 1 - 2 drop BOTH EYES DIRECTED PRN 02/09/24 [History] Lifitegrast [Xiidra] 1 drop BOTH EYES BID 02/09/24 [History] lisinopriL [Prinivil] 10 mg PO DAILY 02/09/24 [History] Follow up Appointment(s)/Referral(s): Quentin Espinosa MD [Primary Care Provider] - 1-2 days Liz Dodson MD [STAFF PHYSICIAN] - 02/22/24 (TELEHEALTH - DR WILL CALL YOU BETWEEN 9 am to 8 pm) Patient Instructions/Handouts: Lysis of Abdominal Adhesions (GEN) Activity/Diet/Wound Care/Special Instructions: TELEHEALTH - DR WILL CALL YOU BETWEEN 9 am to 8 pm Recommend low-fat diet for the next 2 days. No lifting over 10 pounds in 2 weeks until February 24February shower. No bath tub soaks for two weeks until February 24 Diet as tolerated. Use Tylenol, simethicone and ibuprofen or Aleve scheduled for the next 24-48 hours for best pain relief. Use ice along incisions for today to prevent swelling. Discharge Disposition: HOME SELF-CARE
[2024-02-14 08:38] LABS: HCT 27.7 % (37.2-46.3); HGB 8.8 g/dL (12.0-15.0); MCH 32.7 pg (27.0-32.0); MCHC 31.8 g/dL (32.0-37.0); Mean Platelet Volume 10.5 FL (9.5-12.2); NRBC Per 100 WBC 0 X 10*3/uL (0.00-0.01); Platelet Count 172 X 10*3/uL (140-440); RBC 2.69 X 10*6/uL (4.10-5.20); RDW 14.7 % (11.5-14.5); WBC 7.18 X 10*3/uL (4.50-10.00)
[2024-02-14] MEDS: FLUCONAZOLE 150 MG TAB PO STA (09:13)
[2024-02-14 09:17] LABS: ALT 22 U/L (8-44); AST 30 U/L (13-35); Albumin 3.1 g/dL (3.8-4.9); Albumin/Globulin Ratio 1.82 Ratio (1.60-3.17); Alkaline Phosphatase 38 U/L (41-126); BUN/Creat Ratio 13.15 Ratio (12.00-20.00); Blood Urea Nitrogen 17.1 mg/dL (9.0-27.0); Calcium 8.2 mg/dL (8.7-10.3); Carbon Dioxide 23.4 mmol/L (21.6-31.8); Chloride 112 mmol/L (96-109); Globulin 1.7 g/dL (1.6-3.3); Glucose 93 mg/dL (70-110); Potassium 3.4 mmol/L (3.5-5.5); Sodium 142 mmol/L (135-145); Total Bilirubin 0.3 mg/dL (0.3-1.2); Total Protein 4.8 g/dL (6.2-8.2)
--- NOTE | 2024-02-14 11:02 | P.PN ---
Subjective Patient is seen in follow-up for acute kidney injury on chronic kidney disease. Renal function stable. Oral intake fair. No vomiting or diarrhea. Hemodynamically stable. Vital signs are stable. General: No acute distress. HEENT: Head exam is unremarkable. LUNGS: No audible rhonchi or wheezes. HEART: Rate and Rhythm are regular. ABDOMEN: Nontender. EXTREMITITES: No edema. Objective - Vital Signs Vital signs: Vital Signs Temp 99.5 F 02/14/24 07:41 Pulse 73 02/14/24 07:41 Resp 17 02/14/24 07:41 BP 134/71 02/14/24 07:41 Pulse Ox 92 L 02/14/24 07:41 FiO2 Intake & Output 02/13/24 02/14/24 02/14/24 18:59 06:59 18:59 Intake Total 1150 240 Output Total 300 500 Balance -300 650 240 Weight 65.6 kg Intake: Intake, IV Titration 1150 Amount Piperacillin-Tazobactam 3 100 .375 gm In Sodium Chloride 0.9% 100 ml @ 25 mls/hr IVPB Q8HR [facility] Rx# :[id number] Sodium Chloride 0.9% 1, 1050 000 ml @ 100 mls/hr IV . Q10H [facility] Rx#:[id number] Oral 240 Output: Urine 300 500 Other: Voiding Method Indwelling Catheter Indwelling Catheter # Voids 3 3 2 # Bowel Movements 1 1 - Labs CBC & Chem 7: 02/14/24 04:40 02/14/24 04:40 Labs: Abnormal Lab Results - Last 24 Hours (Table) 02/14/24 02/14/24 Range/Units 04:40 04:40 RBC 2.69 L (4.10-5.20) X 10*6/uL Hgb 8.8 L (12.0-15.0) g/dL Hct 27.7 L (37.2-46.3) % MCV 103.0 H (80.0-97.0) FL MCH 32.7 H (27.0-32.0) pg MCHC 31.8 L (32.0-37.0) g/dL RDW 14.7 H (11.5-14.5) % Potassium 3.4 L (3.5-5.5) mmol/L Chloride 112 H (96-109) mmol/L Est GFR (CKD-EPI) 44 L (>=60) Calcium 8.2 L (8.7-10.3) mg/dL Alkaline Phosphatase 38 L (41-126) U/L Total Protein 4.8 L (6.2-8.2) g/dL Albumin 3.1 L (3.8-4.9) g/dL Assessment and Plan Plan: Assessment: 1. Acute kidney injury secondary to ATN secondary to hypovolemia. Improved. UA benign. No hydronephrosis noted on kidney ultrasound. 2. Chronic kidney disease stage II with baseline creatinine near 1. Patient follows at [facility]. 3. Bowel obstruction status post laparoscopic lysis of adhesions. 4. History of non-Hodgkin's lymphoma status post bone marrow transplant. 5. History of SLE and rheumatoid arthritis. Currently not on any treatment. Follows at [facility]. 6. Benign hypertension. Stable. 7. Hypokalemia from poor intake. 8. Anemia. Rule out iron deficiency. Plan: Maintain IV fluids. Decrease rate to 75 cc an hour. Check iron studies. Avoid nephrotoxins. Replace potassium.
--- NOTE | 2024-02-14 12:05 | P.PN ---
Subjective Progress Note Date: 02/14/24 CHIEF COMPLAINT: Small bowel obstruction HISTORY OF PRESENT ILLNESS: Small bowel obstruction due to omental adhesion to retroperitoneum. Status post lysis of adhesions. Patient's pain is controlled. She is tolerating diet. She is having bowel movements. Afebrile. PHYSICAL EXAM: VITAL SIGNS: Reviewed GENERAL: Well-developed in no acute distress. HEENT: No sclera icterus. Extraocular movements grossly intact. Moist buccal mucosa. Head is atraumatic, normocephalic. Hears conversational speech. No nasal drainage. NECK: Supple without lymphadenopathy. CHEST: Non-labored respirations and equal bilateral excursions. CARDIOVASCULAR: Palpable 2+ radial pulses. ABDOMEN: Soft. Nondistended. Incision sites clean dry and intact. MUSCULOSKELETAL: No clubbing or cyanosis. NEUROLOGIC: No focal or lateralizing signs. Cranial nerves II through XII grossly intact. PSYCH: Appropriate affect. Alert and oriented to person, place and time. SKIN: Well perfused. Good skin turgor. ASSESSMENT: 1. Small bowel obstruction due to omental adhesion to retroperitoneum 2. Gastroesophageal reflux disease 3. Hypertensive heart disease 4. Hypothyroidism 5. Generalized anxiety disorder 6. Depressive disorder 7. Asthma 8. History of diffuse large B-cell lymphoma 9. History of chemotherapy 10. History of bone marrow transplant 11. History of deep venous thrombosis 12. Small bowel ischemia due to closed-loop obstruction 13. Intra-abdominal ascites with hemoperitoneum 14. Oliguria with acute renal failure PLAN: -Continue low fiber diet -Patient can be discharged from surgical standpoint Physician Refrigeration Mechanic note has been reviewed by physician. Signing provider agrees with the documented findings, assessment, and plan of care. Objective - Vital Signs Vital signs: Vital Signs Temp 99.5 F 02/14/24 07:41 Pulse 73 02/14/24 07:41 Resp 17 02/14/24 07:41 BP 134/71 02/14/24 07:41 Pulse Ox 92 L 02/14/24 07:41 FiO2 Intake & Output 02/13/24 02/14/24 02/14/24 18:59 06:59 18:59 Intake Total 1150 240 Output Total 300 500 Balance -300 650 240 Weight 65.6 kg Intake: Intake, IV Titration 1150 Amount Piperacillin-Tazobactam 3 100 .375 gm In Sodium Chloride 0.9% 100 ml @ 25 mls/hr IVPB Q8HR [facility] Rx# :[id number] Sodium Chloride 0.9% 1, 1050 000 ml @ 100 mls/hr IV . Q10H [facility] Rx#:[id number] Oral 240 Output: Urine 300 500 Other: Voiding Method Indwelling Catheter Indwelling Catheter # Voids 3 3 2 # Bowel Movements 1 1 - Labs CBC & Chem 7: 02/14/24 04:40 02/14/24 04:40 Labs: Abnormal Lab Results - Last 24 Hours (Table) 02/14/24 02/14/24 Range/Units 04:40 04:40 RBC 2.69 L (4.10-5.20) X 10*6/uL Hgb 8.8 L (12.0-15.0) g/dL Hct 27.7 L (37.2-46.3) % MCV 103.0 H (80.0-97.0) FL MCH 32.7 H (27.0-32.0) pg MCHC 31.8 L (32.0-37.0) g/dL RDW 14.7 H (11.5-14.5) % Potassium 3.4 L (3.5-5.5) mmol/L Chloride 112 H (96-109) mmol/L Est GFR (CKD-EPI) 44 L (>=60) Calcium 8.2 L (8.7-10.3) mg/dL Alkaline Phosphatase 38 L (41-126) U/L Total Protein 4.8 L (6.2-8.2) g/dL Albumin 3.1 L (3.8-4.9) g/dL
[2024-02-14] MEDS: POTASSIUM CHLORIDE ER 20 MEQ TAB.ER PO STA (12:22)
[2024-02-14 14:26] VITALS: BP 146/85; PULSE 77; RESP 18; TEMP 98.5
[2024-02-14 23:47] LABS: % Iron Saturation 59.87 (12.00-45.00)
== END 2024-02-14 14:27 | disposition home or self-care (01) | DRG 335 ==
LOC: EC 07:27 → 4SSUR 11:17
PROVIDERS: ADMIT Internal Medicine Geriatric Medicine; ATTEND Internal Medicine Geriatric Medicine
PROC: 0D9670Z Drainage of Stomach with Drainage Device, Via Natural or Artificial Opening (ICD-10-PCS; 2024-02-09)
PROC: 0DN84ZZ Release Small Intestine, Percutaneous Endoscopic Approach (ICD-10-PCS; 2024-02-11)
PROC: 8E0W4CZ Robotic Assisted Procedure of Trunk Region, Percutaneous Endoscopic Approach (ICD-10-PCS; 2024-02-11)
PROC: 0DNU4ZZ Release Omentum, Percutaneous Endoscopic Approach (ICD-10-PCS; principal; 2024-02-11 13:10)
DX: K56.52 Intestinal adhesions [bands] with complete obstruction (principal); K55.019 Acute (reversible) ischemia of small intestine, extent unspecified; K66.1 Hemoperitoneum; N17.0 Acute kidney failure with tubular necrosis; Z94.81 Bone marrow transplant status; K31.1 Adult hypertrophic pyloric stenosis; D68.61 Antiphospholipid syndrome; R18.8 Other ascites; E87.20 Acidosis, unspecified; E87.0 Hyperosmolality and hypernatremia; E87.1 Hypo-osmolality and hyponatremia; M32.9 Systemic lupus erythematosus, unspecified; M06.9 Rheumatoid arthritis, unspecified; N18.30 Chronic kidney disease, stage 3 unspecified; I13.10 Hypertensive heart and chronic kidney disease without heart failure, with stage 1 through stage 4 chronic kidney disease, or unspecified chronic kidney disease; D63.1 Anemia in chronic kidney disease; E87.8 Other disorders of electrolyte and fluid balance, not elsewhere classified; I95.9 Hypotension, unspecified; E03.9 Hypothyroidism, unspecified; J45.20 Mild intermittent asthma, uncomplicated; J44.89 Other specified chronic obstructive pulmonary disease; F32.A Depression, unspecified; K21.9 Gastro-esophageal reflux disease without esophagitis; E78.5 Hyperlipidemia, unspecified; F41.1 Generalized anxiety disorder; E86.0 Dehydration; G62.9 Polyneuropathy, unspecified; N28.1 Cyst of kidney, acquired; E86.1 Hypovolemia; Z86.711 Personal history of pulmonary embolism; Z85.72 Personal history of non-Hodgkin lymphomas; Z79.899 Other long term (current) drug therapy; Z79.890 Hormone replacement therapy; Z86.718 Personal history of other venous thrombosis and embolism; Z92.21 Personal history of antineoplastic chemotherapy; Z88.2 Allergy status to sulfonamides; Z88.5 Allergy status to narcotic agent
CPT/HCPCS: 36415; 74018; 74019; 74177; 74250; 76770; 80048; 80051; 80053; 81003; 82150; 82306; 82728; 83540; 83550; 83605; 83690; 83735; 85025; 85027; 85610; 85730; 86850; 86900; 86901; 87040; 93005; 94640; 96361; 96374; 96375; 96376; 99285

== ENCOUNTER → 2024-04-05 | Day surgery (SDC) | payer MEDICARE ==
[2024-04-03 14:34] VITALS: BMI 21.6
[~2024-04-05] MED LIST changes: +LIDOCAINE 1% (10MG/ML) FOR IV START INTRADERMA PRN; +LIDOCAINE 1% INJ 10MG/ML (20 ML MDV) ONE; +PROPOFOL 10 MG/ML 20 ML VIAL IV ONE; -SODIUM CHLORIDE 0.9% 50 ML IVPB ONE; -SODIUM CHLORIDE 0.9% 500 ML 500 ML in EMPTY BAG 1 BAG IV PRN; -SOTROVIMAB (EUA) 500 MG in SODIUM CHLORIDE 0.9% 100 ML IVPB ONE
--- NOTE | 2024-04-05 07:35 | P.GSHP ---
History of Present Illness H&P Date: 04/05/24 CHIEF COMPLAINT: GERD HISTORY OF PRESENT ILLNESS: The patient is a 68-year-old female who presents reports gastroesophageal reflux disease. Upper endoscopy was offered for further evaluation and management. PAST MEDICAL HISTORY: Please see list. PAST SURGICAL HISTORY: Please see list. MEDICATIONS: Please see list. ALLERGIES: Please see list. SOCIAL HISTORY: No illicit drug use FAMILY HISTORY: No reports of Crohn disease or ulcerative colitis. REVIEW OF ORGAN SYSTEMS: CONSTITUTIONAL: No reports of fevers or chills. GI: Denies any blood in stools or constipation. PHYSICAL EXAM: VITAL SIGNS: Stable GENERAL: Well-developed and pleasant in no acute distress. HEENT: No scleral icterus. Extraocular movements grossly intact. Moist buccal mucosa. NECK: Supple without lymphadenopathy. CHEST: Unlabored respirations. Equal bilateral excursions. CARDIOVASCULAR: Regular rate and rhythm. Distal 2+ pulses. ABDOMEN: Soft, nondistended. MUSCULOSKELETAL: No clubbing, cyanosis, or edema. ASSESSMENT: 1. Gastroesophageal reflux disease PLAN: 1. Recommend proceeding with an upper endoscopy Past Medical History Past Medical History: Blood Disorder, Cancer, Deep Vein Thrombosis (DVT), GERD/Reflux, Hypertension, Myocardial Infarction (NE), Musculoskeletal Disorder, Renal Disease, Thyroid Disorder Additional Past Medical History / Comment(s): lupus as a child Other HX: Ddiffuse large B-cell lymphoma -first diagnoses 12 yrs ago and pt was been doing well since that time. Then on 04/16/15 pt had sinus pressure a mass was discovered and a bx performed at [facility] which confirmed diffuse large B cell lymphoma- pt has begun chemo (RD_EPOCH) at [facility] after which she ended up at [facility] with admission 05/05/15 due to fatigue, weakness, nausea, severe hyponatremia (chronic) ,hypocloremia, hypokalemia, hypomagnesium, anemia, pancytopenia, chemo induced neutropenia, UTI. Pt then decided to have chemo here-locally. She has had 2 doses of EOPCH with Rituxan so far. Additional hx of: DVT L axillae yrs ago, migraines, stage 3 kidney disease, antiphospholipid antibody syndrome with hypercoagulable state, anemia of chronic kidney disease, SLE, paresthesia, peripheral neuropathy bilateral hands, feet and some numbness in face which she attributes to chemo and nasal surgery, pt is on lipitor not for elevated lipids but due to lupus potentially causing heart dx. 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 not asthmatic. takes atorvastatin for cardiac not hyperlipidemia Last Myocardial Infarction Date:: 2005 heart event History of Any Multi-Drug Resistant Organisms: None Reported Past Surgical History: Appendectomy, Bowel Resection, Heart Catheterization, Hysterectomy, Orthopedic Surgery Additional Past Surgical History / Comment(s): 02/2015 bone marrow aspiration at [facility], 05/29/15 PICC line insertion. Other SX HX: tumor removed from left arm from 1st time of lymphoma, 04/16/15 sinus bx, yrs ago mediport L chest which never worked and was removed. small bowel obstruction and had laparoscopic surgery 02/15, bunionectomy, colonoscopy egd, Past Anesthesia/Blood Transfusion Reactions: No Reported Reaction Additional Past Anesthesia/Blood Transfusion Reaction / Comment(s): blood transfusion no reactions Past Psychological History: Anxiety, Depression Additional Psychological History / Comment(s): Pt resides with her spouse. She is independent with her ADL's. She is not currently driving. She has a very supportive family. She currently is not using any assistive device or home care. Smoking Status: Never smoker Past Alcohol Use History: None Reported Past Drug Use History: None Reported - Past Family History Father Family Medical History: Cancer Additional Family Medical History / Comment(s): prostate CA Mother Family Medical History: No Reported History Brother(s) Family Medical History: Myocardial Infarction ([place]) Medications and Allergies Home Medications Medication Instructions Recorded Confirmed Type Levothyroxine Sodium [Synthroid] 100 mcg PO DAILY 06/26/15 04/03/24 History Aspirin EC [Ecotrin Low Dose] 81 mg PO HS 05/23/21 04/03/24 History Calcium Carbonate [Calcium] 600 mg PO W/SUPPER 05/23/21 04/03/24 History Cetirizine HCl [Zyrtec] 10 mg PO DAILY 05/23/21 04/03/24 History Estradiol Cream [Estrace Cream 1 gram VAGINAL MO 05/23/21 04/03/24 History 0.01%] Fluticasone Propion/Salmeterol 1 puff INHALATION RT-BID 05/23/21 04/03/24 History [Advair 250-50 Diskus] Metoprolol Succinate (ER) [Toprol 100 mg PO DAILY 05/23/21 04/03/24 History XL] Montelukast [Singulair] 10 mg PO HS 05/23/21 04/03/24 History Proctocort 30mg Suppository 30 mg VAGINAL HS 05/23/21 04/03/24 History Rosuvastatin Calcium 10 mg PO HS 05/23/21 04/03/24 History Carboxymethylcellulose Sodium 1 - 2 drop BOTH EYES DIRECTED 02/09/24 04/03/24 History [Refresh Tears] PRN Lifitegrast [Xiidra] 1 drop BOTH EYES BID 02/09/24 04/03/24 History lisinopriL [Prinivil] 10 mg PO DAILY 02/09/24 04/03/24 History Triamcinolone 0.1% Cream [Kenalog 1 applic TOPICAL HS 04/03/24 04/03/24 History 0.1% Cream] Allergies Allergy/AdvReac Type Severity Reaction Status Date / Time Sulfa (Sulfonamide Allergy Unknown Verified 02/09/24 09:36 Antibiotics) Childhood codeine AdvReac Nausea Verified 02/09/24 09:36 hydrocodone bitartrate AdvReac Nausea Verified 02/09/24 09:36 [From [place]]
[2024-04-05 08:54] VITALS: RESP 16; TEMP 97
[2024-04-05] MEDS: LACTATED RINGERS 1,000 ML IV SCH (09:02)
[2024-04-05] MEDS: IV FLUID CONTINUATION 1,000 ML IV ONE (09:03)
--- NOTE | 2024-04-05 09:46 | P.PCN ---
Date of Procedure: 04/05/24 Description of Procedure: PREOPERATIVE DIAGNOSIS: Dysphagia. POSTOPERATIVE DIAGNOSIS: Dysphagia. Esophageal stricture Diaphragmatic hiatal hernia OPERATION: Esophagogastroduodenoscopy with rigid dilator over the guidewire 51 Fr. SURGEON: Liz Dodson MD ANESTHESIA: MAC. INDICATIONS: The patient is a 68-year-old female who presents with dysphagia. Benefits and risks of the procedure were described. Informed consent was obtained. DESCRIPTION: The patient was brought into the endoscopy suite and laid in the left lateral decubitus position. After a timeout was confirmed, the procedure was initiated. An Olympus gastroscope was passed and the stomach was entered. Esophageal stricture was identified. Mild gastritis was identified. The scope was advanced to the duodenum which was unremarkable. Retroflexion the scope confirmed a Hill grade 3 lower esophageal valve. Next using an Iranian rigid dilator, a guidewire was placed through the pediatric gastroscope. Next the scope was withdrawn. A 51-Honduran rigid Iranian dilator was passed carefully along the posterior oropharynx to 50 cm and left in place for 2-3 minutes stretch. The dilator was withdrawn including the guidewire. The scope was reentered along the posterior oropharynx with no findings of full-thickness tear of the upper esophageal sphincter. Next, inflammation of the antrum was identified with cold forceps biopsies obtained. No full-thickness injury was encountered. The GI tract was desufflated. The patient tolerated the procedure well. FINDINGS: Squamocolumnar junction unremarkable at 35 cm. Upper esophageal stricture Iranian rigid dilator 54-Honduran completed. Diaphragmatic hiatus at 40 cm Diaphragmatic hiatal hernia, 5 cm Diffuse gastritis. Hill grade 3 lower esophageal valve. LA grade B esophagitis. RECOMMENDATIONS: Omeprazole 40 mg daily for 2 weeks May benefit from additional dilation Plan - Discharge Summary Discharge Rx Participant: No New Discharge Prescriptions: New Omeprazole [PriLOSEC] 40 mg PO DAILY #14 cap Continue Levothyroxine Sodium [Synthroid] 100 mcg PO DAILY Aspirin EC [Ecotrin Low Dose] 81 mg PO HS Rosuvastatin Calcium 10 mg PO HS Montelukast [Singulair] 10 mg PO HS Proctocort 30mg Suppository 30 mg VAGINAL HS Metoprolol Succinate (ER) [Toprol XL] 100 mg PO DAILY Estradiol Cream [Estrace Cream 0.01%] 1 gram VAGINAL MO lisinopriL [Prinivil] 10 mg PO DAILY Carboxymethylcellulose Sodium [Refresh Tears] 1 - 2 drop BOTH EYES DIRECTED PRN PRN Reason: Dry Eye(S) Triamcinolone 0.1% Cream [Kenalog 0.1% Cream] 1 applic TOPICAL HS Cetirizine HCl [Zyrtec] 10 mg PO DAILY Calcium Carbonate [Calcium] 600 mg PO W/SUPPER Fluticasone Propion/Salmeterol [Advair 250-50 Diskus] 1 puff INHALATION RT- BID Lifitegrast [Xiidra] 1 drop BOTH EYES BID Discharge Medication List Levothyroxine Sodium [Synthroid] 100 mcg PO DAILY 06/26/15 [History] Aspirin EC [Ecotrin Low Dose] 81 mg PO HS 05/23/21 [History] Calcium Carbonate [Calcium] 600 mg PO W/SUPPER 05/23/21 [History] Cetirizine HCl [Zyrtec] 10 mg PO DAILY 05/23/21 [History] Estradiol Cream [Estrace Cream 0.01%] 1 gram VAGINAL MO 05/23/21 [History] Fluticasone Propion/Salmeterol [Advair 250-50 Diskus] 1 puff INHALATION RT-BID 05/23/21 [History] Metoprolol Succinate (ER) [Toprol XL] 100 mg PO DAILY 05/23/21 [History] Montelukast [Singulair] 10 mg PO HS 05/23/21 [History] Proctocort 30mg Suppository 30 mg VAGINAL HS 05/23/21 [History] Rosuvastatin Calcium 10 mg PO HS 05/23/21 [History] Carboxymethylcellulose Sodium [Refresh Tears] 1 - 2 drop BOTH EYES DIRECTED PRN 02/09/24 [History] Lifitegrast [Xiidra] 1 drop BOTH EYES BID 02/09/24 [History] lisinopriL [Prinivil] 10 mg PO DAILY 02/09/24 [History] Triamcinolone 0.1% Cream [Kenalog 0.1% Cream] 1 applic TOPICAL HS 04/03/24 [History] Omeprazole [PriLOSEC] 40 mg PO DAILY #14 cap 04/05/24 [Rx] Follow up Appointment(s)/Referral(s): Liz Dodson MD [STAFF PHYSICIAN] - 05/02/24 11:30 am Patient Instructions/Handouts: Esophageal Dilation (DC) Discharge Disposition: HOME SELF-CARE
[2024-04-05 09:52] VITALS: BP 119/77; PULSE 69
== END | disposition home or self-care (01) ==
LOC: ORWHC2ENDO 08:36
PROVIDERS: ATTEND Surgery Plastic and Reconstructive Surgery
DX: K22.2 Esophageal obstruction (principal); K29.70 Gastritis, unspecified, without bleeding; K21.00 Gastro-esophageal reflux disease with esophagitis, without bleeding; K44.9 Diaphragmatic hernia without obstruction or gangrene; Z86.718 Personal history of other venous thrombosis and embolism; E07.9 Disorder of thyroid, unspecified; I12.9 Hypertensive chronic kidney disease with stage 1 through stage 4 chronic kidney disease, or unspecified chronic kidney disease; N18.9 Chronic kidney disease, unspecified; M32.9 Systemic lupus erythematosus, unspecified; E78.5 Hyperlipidemia, unspecified; F41.8 Other specified anxiety disorders; Z85.72 Personal history of non-Hodgkin lymphomas; Z88.2 Allergy status to sulfonamides; Z88.5 Allergy status to narcotic agent; Z79.51 Long term (current) use of inhaled steroids; Z79.899 Other long term (current) drug therapy; Z79.82 Long term (current) use of aspirin; Z79.890 Hormone replacement therapy
CPT/HCPCS: 43239; 43248; J2001; J2704

== ENCOUNTER → 2024-06-22 | Outpatient (CLI) | payer MEDICARE ==
--- NOTE | 2024-06-27 14:58 | MM ---
Reason for Exam: Screening (asymptomatic). Last screening mammogram was performed 12 month(s) ago. Patient History: Menarche at age 10. Patient has no children. Left ovary removed at age 33. Right ovary removed at age 33. Hysterectomy at age 33. Postmenopausal. Other cancer, age 46. Currently using Estrogen, beginning at age 63 for 2 years. Patient used Progesterone for 2 years. Chemotherapy. 2002, Radiation Therapy on the left side. Maternal aunt had breast cancer. Risk Values: Mayte 5 year model risk: 1.9%. NCI Lifetime model risk: 5.6%. Prior Study Comparison: 06/17/2021 Bilateral Screening Mammogram, [facility]. 06/18/2022 Bilateral MG 3D screening mammo w/cad, [facility]. 06/21/2023 Bilateral MG 3D screening mammo w/cad, [facility]. Tissue Density: The breasts are heterogeneously dense, which may obscure small masses. Findings: Analyzed By CAD. Right breast: There is no suspicious group of microcalcifications or new suspicious mass. Left breast: There is no suspicious group of microcalcifications or new suspicious mass. Benign-appearing calcifications left breast. Overall Assessment: Benign, BI-RAD 2 Management: Screening Mammogram of both breasts in [address] [facility] will attempt to contact patient to return for supplemental views and ultrasound if indicated. Patient should continue monthly self-breast exams. A clinical breast exam by your physician is recommended on an annual basis. This exam should not preclude additional follow-up of suspicious palpable abnormalities. Note on Mayte scores and lifetime risk: 1. A Mayte score greater than 3% is considered moderate risk. If this is the case, consider specialist referral to assess eligibility for a risk reducing agent. 2. If overall lifetime risk for the development of breast cancer is 20% or higher, the patient may qualify for future screening with alternating mammogram and breast MRI. Electronically signed and approved by: Primo Jauregui DO
== END | disposition home or self-care (01) ==
LOC: RADMAMWWP 11:18
PROVIDERS: ATTEND Internal Medicine Geriatric Medicine
DX: Z12.31 Encounter for screening mammogram for malignant neoplasm of breast
CPT/HCPCS: 77063; 77067

== ENCOUNTER → 2024-08-25 | Outpatient (CLI) | payer MEDICARE ==
--- NOTE | 2024-08-25 18:10 | BD ---
EXAMINATION TYPE: Axial Bone Density DATE OF EXAM: 08/25/2024 CLINICAL HISTORY: 68 years old Female. ICD-10 CODE: M89.9 DISORDER OF BONE , Z78.0 Height: 62.5 Weight: 129 FRAX RISK QUESTIONS: Family History (Parent hip fracture): no History of Fracture in Adulthood: no Secondary Osteoporosis: yes 3. Menopause before 45: yes RISK FACTORS HISTORY OF: Surgery to Spine/Hip(right/left)/Wrist (right/left): no MEDICATIONS: Thyroid Medications: yes Which medication: Levothyroxine How Lon+ years Osteoporosis Medications: n EXAM MEASUREMENTS: Bone mineral densitometry was performed using the [employer] System. Bone mineral density as measured about the Lumbar spine is: ----- L1-L4(G/cm2): 1.010 T Score Values are as follows: ----- L1: -1.6 ----- L2: -2.5 ----- L3: -0.8 ----- L4: -1.1 ----- L1-L4: -1.4 Z Score Values are as follows: ----- L1: 0.3 ----- L2: -0.6 ----- L3: 1.1 ----- L4: 0.8 ----- L1-L4: 0.5 Bone mineral density has: Increased 7.5% since study of: 10/29/2017 Bone mineral density about the R hip (g/cm2): 0.945 Bone mineral density about the L hip (g/cm2): 0.987 T Score values are as follows: -----R Neck: -0.6 -----L Neck: -1.0 -----R Total: -0.5 -----L Total: -0.2 Z Score values are as follows: -----R Neck: 1.2 -----L Neck: 0.9 -----R Total: 1.2 -----L Total: 1.5 Bone mineral density has: Increased 10.4% since study of: 10/29/2017 FRAX%s: The graph provided illustrates a 8.6% chance for a major osteoporotic fx and a 1.0% chance fo r the hips probability for fx in 10 years time. IMPRESSION: Osteopenia (T Score between -2.5 and -1). There is slightly increased risk of fracture and the patient may be considered for treatment. Re-Screen 2-5 years. NOTE: T-SCORE=SD OF THE YOUNG ADULT MEAN. [facility], , 08/25/2024 6:08 PM
== END | disposition home or self-care (01) ==
LOC: RADBDWWP 15:41
PROVIDERS: ATTEND Internal Medicine Geriatric Medicine
DX: M85.89 Other specified disorders of bone density and structure, multiple sites (principal); Z78.0 Asymptomatic menopausal state
CPT/HCPCS: 77080

== ENCOUNTER 2024-12-16 21:25 | Emergency (ER) | payer MEDICARE ==
[2024-12-16 21:33] VITALS: RESP 18; TEMP 97.4
--- NOTE | 2024-12-16 21:48 | ED ---
General Adult HPI - General Chief complaint: Nausea/Vomiting/Diarrhea Stated complaint: NVD Time Seen by Provider: 12/16/24 21:34 Source: patient, RN notes reviewed, old records reviewed Mode of arrival: wheelchair Limitations: no limitations - History of Present Illness Initial comments: 69-year-old female with approximately 3 hours of nausea vomiting and diarrhea. This began abruptly after eating a salad. Patient concern for dehydration as she has a history of chronic kidney disease. She denies preceding symptoms. Denies significant abdominal pain. She has had at least 4 episodes of diarrhea and several episodes of vomiting. No fever. - Related Data Home Medications Medication Instructions Recorded Confirmed Levothyroxine Sodium [Synthroid] 100 mcg PO DAILY 06/26/15 04/05/24 Aspirin EC [Ecotrin Low Dose] 81 mg PO HS 05/23/21 04/05/24 Calcium Carbonate [Calcium] 600 mg PO W/SUPPER 05/23/21 04/05/24 Cetirizine HCl [Zyrtec] 10 mg PO DAILY 05/23/21 04/05/24 Estradiol Cream [Estrace Cream 1 gram VAGINAL MO 05/23/21 04/05/24 0.01%] Fluticasone Propion/Salmeterol 1 puff INHALATION RT-BID 05/23/21 04/05/24 [Advair 250-50 Diskus] Metoprolol Succinate (ER) [Toprol 100 mg PO DAILY 05/23/21 04/05/24 XL] Montelukast [Singulair] 10 mg PO HS 05/23/21 04/05/24 Proctocort 30mg Suppository 30 mg VAGINAL HS 05/23/21 04/05/24 Rosuvastatin Calcium 10 mg PO HS 05/23/21 04/05/24 Carboxymethylcellulose Sodium 1 - 2 drop BOTH EYES DIRECTED 02/09/24 04/05/24 [Refresh Tears] PRN Lifitegrast [Xiidra] 1 drop BOTH EYES BID 02/09/24 04/05/24 lisinopriL [Prinivil] 10 mg PO DAILY 02/09/24 04/05/24 Triamcinolone 0.1% Cream [Kenalog 1 applic TOPICAL HS 04/03/24 04/05/24 0.1% Cream] Previous Rx's Medication Instructions Recorded Omeprazole [PriLOSEC] 40 mg PO DAILY #14 cap 04/05/24 Ondansetron Odt [Zofran Odt] 4 mg PO Q8HR PRN #10 tab 12/17/24 Allergies Allergy/AdvReac Type Severity Reaction Status Date / Time Sulfa (Sulfonamide Allergy Unknown Verified 12/16/24 21:33 Antibiotics) Childhood codeine AdvReac Nausea Verified 12/16/24 21:33 hydrocodone bitartrate AdvReac Nausea Verified 12/16/24 21:33 [From [place]] Review of Systems ROS Statement: Those systems with pertinent positive or pertinent negative responses have been documented in the HPI. ROS Other: All systems not noted in ROS Statement are negative. Past Medical History Past Medical History: Blood Disorder, Cancer, Deep Vein Thrombosis (DVT), GERD/Reflux, Hypertension, Myocardial Infarction ([place]), Musculoskeletal Disorder, Renal Disease, Thyroid Disorder Additional Past Medical History / Comment(s): lupus as a child Other HX: Ddiffuse large B-cell lymphoma -first diagnoses 12 yrs ago and pt was been doing well since that time. Then on 04/16/15 pt had sinus pressure a mass was discovered and a bx performed at [facility] which confirmed diffuse large B cell lymphoma- pt has begun chemo (RD_EPOCH) at [facility] after which she ended up at [facility] with admission 05/05/15 due to fatigue, weakness, nausea, severe hyponatremia (chronic) ,hypocloremia, hypokalemia, hypomagnesium, anemia, pancytopenia, chemo induced neutropenia, UTI. Pt then decided to have chemo here-locally. She has had 2 doses of EOPCH with Rituxan so far. Additional hx of: DVT L axillae yrs ago, migraines, stage 3 kidney disease, antiphospholipid antibody syndrome with hypercoagulable state, anemia of chronic kidney disease, SLE, paresthesia, peripheral neuropathy bilateral hands, feet and some numbness in face which she attributes to chemo and nasal surgery, pt is on lipitor not for elevated lipids but due to lupus potentially causing heart dx. 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 not asthmatic. takes atorvastatin for cardiac not hyperlipidemia Last Myocardial Infarction Date:: 2005 heart event History of Any Multi-Drug Resistant Organisms: None Reported Past Surgical History: Appendectomy, Bowel Resection, Heart Catheterization, Hy sterectomy, Orthopedic Surgery Additional Past Surgical History / Comment(s): 02/2015 bone marrow aspiration at [facility], 05/29/15 PICC line insertion. Other SX HX: tumor removed from left arm from 1st time of lymphoma, 04/16/15 sinus bx, yrs ago mediport L chest which never worked and was removed. small bowel obstruction and had laparoscopic surgery 02/15, bunionectomy, colonoscopy egd, Past Anesthesia/Blood Transfusion Reactions: No Reported Reaction Additional Past Anesthesia/Blood Transfusion Reaction / Comment(s): blood transfusion no reactions Past Psychological History: Anxiety, Depression Smoking Status: Never smoker Past Alcohol Use History: None Reported Past Drug Use History: None Reported - Past Family History Father Family Medical History: Cancer Additional Family Medical History / Comment(s): prostate CA Mother Family Medical History: No Reported History Brother(s) Family Medical History: Myocardial Infarction ([place]) General Exam Limitations: no limitations General appearance: alert, in no apparent distress Head exam: Present: atraumatic, normocephalic Eye exam: Present: normal appearance, PERRL ENT exam: Present: mucous membranes moist Neck exam: Present: normal inspection. Absent: tenderness, meningismus Respiratory exam: Present: normal lung sounds bilaterally. Absent: respiratory distress, wheezes Cardiovascular Exam: Present: regular rate, normal rhythm GI/Abdominal exam: Present: soft. Absent: distended, tenderness, guarding, rebound Extremities exam: Present: normal inspection, normal capillary refill Neurological exam: Present: alert, oriented X3, CN II-XII intact. Absent: motor sensory deficit Psychiatric exam: Present: normal affect, normal mood Skin exam: Present: warm, dry, intact. Absent: cyanosis, diaphoretic Course Vital Signs 12/16/24 21:28 Temperature 97.4 F L Pulse Rate 75 Respiratory 18 Rate Blood Pressure 145/107 O2 Sat by Pulse 95 Oximetry Medical Decision Making - Medical Decision Making Was pt. sent in by a medical professional or institution (, PA, MORTGAGE ACCOUNTING CLERK, urgent care, hospital, or care home...) When possible be specific @ -No Did you speak to anyone other than the patient for history (EMS, parent, family, police, friend...)? What history was obtained from this source @ -No Did you review nursing and triage notes (agree or disagree)? Why? @ -I reviewed and agree with nursing and triage notes Were old charts reviewed (outside hosp., previous admission, EMS record, old EKG, old radiological studies, urgent care reports/EKG's, care home records)? Report findings @ -No old charts were reviewed Differential Abdominal Pain Women: Appendicitis, Cholecystitis, diverticulosis, ischemic bowel, pancreatitis, hepatitis, UTI, gastroenteritis, AAA, incarcerated hernia, bowel obstruction, constipation, inflammatory bowel, hepatitis, peptic ulcer disease, splenic infarction, perforated viscus, vulvitis, ovarian torsion, PID, kidney stone, placenta abruption, this is not meant to be an all-inclusive list EKG interpreted by me (3pts min.). @ -As above X-rays interpreted by me (1pt min.). @ -None done CT interpreted by me (1pt min.). @ -None done U/S interpreted by me (1pt. min.). @ -None done What testing was considered but not performed or refused? (CT, X-rays, U/S, labs)? Why? @ -None What meds were considered but not given or refused? Why? @ -None Did you discuss the management of the patient with other professionals (professionals i.e. , PA, MORTGAGE ACCOUNTING CLERK, lab, RT, psych nurse, director social service, party planner, teacher, fire management officer, briefcase sewer)? Give summary @ -No Was smoking cessation discussed for >3mins.? @ -No Was critical care preformed (if so, how long)? @ -No Were there social determinants of health that impacted care today? How? (Homelessness, low income, unemployed, alcoholism, drug addiction, transportation, low edu. Level, literacy, decrease access to med. care, detention, rehab)? @ -No Was there de-escalation of care discussed even if they declined (Discuss DNR or withdrawal of care, Hospice)? DNR status @ -No What co-morbidities impacted this encounter? (DM, HTN, Smoking, COPD, CAD, Cancer, CVA, ARF, Chemo, Hep., AIDS, mental health diagnosis, sleep apnea, morbid obesity)? @ -Kidney disease Was patient admitted / discharged? Hospital course, mention meds given and route, prescriptions, significant lab abnormalities, going to OR and other pertinent info. @ -[69-year-old female with nausea vomiting diarrhea began just prior to arrival. After eating a salad. Patient given fluids, antiemetics. She was concerned about her kidney function kidney function is stable and improved from prior. Patient observed in the emergency department for several hours with resolution in symptoms. Patient feels comfortable with discharge at this time with return parameters. Undiagnosed new problem with uncertain prognosis? @ -No Drug Therapy requiring intensive monitoring for toxicity (Heparin, Nitro, Insulin, Cardizem)? @ -No Were any procedures done? @ -No Diagnosis/symptom? @ -Nausea vomiting diarrhea Acute, or Chronic, or Acute on Chronic? @Acute Uncomplicated (without systemic symptoms) or Complicated (systemic symptoms)? @ -Default Side effects of treatment? @ -No Exacerbation, Progression, or Severe Exacerbation? @ -No Poses a threat to life or bodily function? How? (Chest pain, [place], [place], pneumonia, PE, COPD, DKA, ARF, appy, cholecystitis, CVA, Diverticulitis, Homicidal, Suicidal, threat to staff... and all critical care pts) @ -No - Lab Data Result diagrams: 12/16/24 21:43 12/16/24 21:43 Lab Results 12/16/24 12/16/24 12/16/24 Range/Units 21:43 21:43 21:48 WBC 14.0 H (3.8-10.6) k/uL RBC 3.72 L (3.80-5.40) m/uL Hgb 12.0 (11.4-16.0) gm/dL Hct 36.5 (34.0-46.0) % MCV 98.0 (80.0-100.0) fL MCH 32.4 (25.0-35.0) pg MCHC 33.0 (31.0-37.0) g/dL RDW 13.4 (11.5-15.5) % Plt Count 243 (150-450) k/uL MPV 7.9 Neutrophils % 74 % Lymphocytes % 18 % Monocytes % 6 % Eosinophils % 1 % Basophils % 0 % Neutrophils # 10.3 H (1.3-7.7) k/uL Lymphocytes # 2.6 (1.0-4.8) k/uL Monocytes # 0.8 (0-1.0) k/uL Eosinophils # 0.2 (0-0.7) k/uL Basophils # 0.0 (0-0.2) k/uL Sodium 136 L (137-145) mmol/L Potassium 4.3 (3.5-5.1) mmol/L Chloride 103 (98-107) mmol/L Carbon Dioxide 23 (22-30) mmol/L Anion Gap 10 mmol/L BUN 43 H (7-17) mg/dL Creatinine 1.11 H (0.52-1.04) mg/dL Est GFR (CKD-EPI)AfAm 58 (>60 ml/min/1.73 sqM) Est GFR (CKD-EPI)NonAf 50 (>60 ml/min/1.73 sqM) Glucose 119 H (74-99) mg/dL Calcium 9.2 (8.4-10.2) mg/dL Magnesium 1.7 (1.6-2.3) mg/dL Total Bilirubin 0.4 (0.2-1.3) mg/dL AST 34 (14-36) U/L ALT 28 (4-34) U/L Alkaline Phosphatase 82 (38-126) U/L Total Protein 6.8 (6.3-8.2) g/dL Albumin 4.3 (3.5-5.0) g/dL Influenza Type A (PCR) Not Detected (Not Detectd) Influenza Type B (PCR) Not Detected (Not Detectd) RSV (PCR) Not Detected (Not Detectd) SARS-CoV-2 (PCR) Not Detected (Not Detectd) Disposition Clinical Impression: Dehydration, Nausea and vomiting Disposition: HOME SELF-CARE Condition: Fair Instructions (If sedation given, give patient instructions): Acute Nausea and Vomiting (ED), Acute Diarrhea (ED) Prescriptions: Ondansetron Odt [Zofran Odt] 4 mg PO Q8HR PRN #10 tab PRN Reason: Vomiting Is patient prescribed a controlled substance at d/c from ED?: No Referrals: Quentin Espinosa MD [Primary Care Provider] - 1-2 days Time of Disposition: 00:46
[2024-12-16 22:03] LABS: Basophils % (A) 0 %; Eosinophils # (A) 0.2 k/uL (0-0.7); Eosinophils % (A) 1 %; HCT 36.5 % (34.0-46.0); Lymphocytes # (A) 2.6 k/uL (1.0-4.8); Lymphocytes % (A) 18 %; MCH 32.4 pg (25.0-35.0); Mean Platelet Volume 7.9; Monocytes # (A) 0.8 k/uL (0-1.0); Monocytes % (A) 6 %; Neutrophils # (A) 10.3 k/uL (1.3-7.7); Neutrophils % (A) 74 %; Platelet Count 243 k/uL (150-450); RBC 3.72 m/uL (3.80-5.40); RDW 13.4 % (11.5-15.5)
[2024-12-16 22:06] LABS: ALT 28 U/L (4-34); AST 34 U/L (14-36); African American GFR (CKD) 58 (>60 ml/min/1.73 sqM); Albumin 4.3 g/dL (3.5-5.0); Alkaline Phosphatase 82 U/L (38-126); Anion Gap 10 mmol/L; Blood Urea Nitrogen 43 mg/dL (7-17); Calcium 9.2 mg/dL (8.4-10.2); Carbon Dioxide 23 mmol/L (22-30); Chloride 103 mmol/L (98-107); Glucose 119 mg/dL (74-99); Magnesium 1.7 mg/dL (1.6-2.3); Non-African American GFR(CKD) 50 (>60 ml/min/1.73 sqM); Potassium 4.3 mmol/L (3.5-5.1); Sodium 136 mmol/L (137-145); Total Bilirubin 0.4 mg/dL (0.2-1.3); Total Protein 6.8 g/dL (6.3-8.2)
[2024-12-16] MEDS: SODIUM CHLORIDE 0.9% 1,000 ML IV ONE (22:12)
[2024-12-16] MEDS: ONDANSETRON 4 MG/2 ML VIAL IVP STA ×2 (22:13→23:48)
[2024-12-16 22:31] LABS: Influenza A Not Detected (Not Detectd); Influenza B Not Detected (Not Detectd); RSV Not Detected (Not Detectd)
[2024-12-16] MEDS: MORPHINE SULFATE 2 MG/ML SYRINGE IVP STA (23:48)
[2024-12-17 01:01] VITALS: BP 123/69; PULSE 81
[2024-12-17] MEDS: MORPHINE SULFATE 2 MG/ML SYRINGE IVP STA (01:23)
== END 2024-12-17 02:15 | disposition home or self-care (01) ==
LOC: EC 21:25
DX: E86.0 Dehydration (principal); R11.2 Nausea with vomiting, unspecified; I12.9 Hypertensive chronic kidney disease with stage 1 through stage 4 chronic kidney disease, or unspecified chronic kidney disease; Z88.2 Allergy status to sulfonamides; Z88.5 Allergy status to narcotic agent; N18.9 Chronic kidney disease, unspecified
CPT/HCPCS: 36415; 80053; 83735; 85025; 87636; 99284; 96374; 96375; 96376 ×2; 96361; J2405; J2270

== ENCOUNTER 2024-12-17 19:26 | Emergency (ER) | payer MEDICARE ==
[2024-12-17 20:09] VITALS: RESP 18; TEMP 99.6
--- NOTE | 2024-12-17 20:44 | ED ---
Nausea/Vomiting/Diarrhea HPI - General Chief complaint: Nausea/Vomiting/Diarrhea Stated complaint: RE-check Time Seen by Provider: 12/17/24 20:40 Source: patient, RN notes reviewed, old records reviewed Mode of arrival: ambulatory Limitations: no limitations - History of Present Illness Initial comments: This is a 69-year-old female to the ER for reevaluation. Patient seen in the ER last night for nausea vomiting and diarrhea. She presents with similar symptoms today with increasing abdominal pain. No fevers. No blood. Patient states she is just getting tired of going to the bathroom so much and is starting to wear her out, no feelings of lightheadedness or dizziness or near syncope MD complaint: nausea, vomiting, diarrhea, abdominal pain -: days(s) Description of Vomiting: food contents, watery, bilious Description of Diarrhea: water, mucous, tarry Associated Abdominal Pain: Yes Location: diffuse, LUQ Severity: moderate Severity scale (1-10): 5 Quality: cramping, aching Consistency: intermittent Improves with: none Associated Symptoms: loss of appetite, nausea/vomiting, weakness - Related Data Home Medications Medication Instructions Recorded Confirmed Levothyroxine Sodium [Synthroid] 100 mcg PO DAILY 06/26/15 04/05/24 Aspirin EC [Ecotrin Low Dose] 81 mg PO HS 05/23/21 04/05/24 Calcium Carbonate [Calcium] 600 mg PO W/SUPPER 05/23/21 04/05/24 Cetirizine HCl [Zyrtec] 10 mg PO DAILY 05/23/21 04/05/24 Estradiol Cream [Estrace Cream 1 gram VAGINAL MO 05/23/21 04/05/24 0.01%] Fluticasone Propion/Salmeterol 1 puff INHALATION RT-BID 05/23/21 04/05/24 [Advair 250-50 Diskus] Metoprolol Succinate (ER) [Toprol 100 mg PO DAILY 05/23/21 04/05/24 XL] Montelukast [Singulair] 10 mg PO HS 05/23/21 04/05/24 Proctocort 30mg Suppository 30 mg VAGINAL HS 05/23/21 04/05/24 Rosuvastatin Calcium 10 mg PO HS 05/23/21 04/05/24 Carboxymethylcellulose Sodium 1 - 2 drop BOTH EYES DIRECTED 02/09/24 04/05/24 [Refresh Tears] PRN Lifitegrast [Xiidra] 1 drop BOTH EYES BID 02/09/24 04/05/24 lisinopriL [Prinivil] 10 mg PO DAILY 02/09/24 04/05/24 Triamcinolone 0.1% Cream [Kenalog 1 applic TOPICAL HS 04/03/24 04/05/24 0.1% Cream] Previous Rx's Medication Instructions Recorded Omeprazole [PriLOSEC] 40 mg PO DAILY #14 cap 04/05/24 Ondansetron Odt [Zofran Odt] 4 mg PO Q8HR PRN #10 tab 12/17/24 Allergies Allergy/AdvReac Type Severity Reaction Status Date / Time Sulfa (Sulfonamide Allergy Unknown Verified 12/17/24 20:09 Antibiotics) Childhood codeine AdvReac Nausea Verified 12/17/24 20:09 hydrocodone bitartrate AdvReac Nausea Verified 12/17/24 20:09 [From [place]] Review of Systems ROS Statement: Those systems with pertinent positive or pertinent negative responses have been documented in the HPI. ROS Other: All systems not noted in ROS Statement are negative. Past Medical History Past Medical History: Blood Disorder, Cancer, Deep Vein Thrombosis (DVT), GERD/ Reflux, Hypertension, Myocardial Infarction (MS), Musculoskeletal Disorder, Renal Disease, Thyroid Disorder Additional Past Medical History / Comment(s): lupus as a child Other HX: Ddiffuse large B-cell lymphoma -first diagnoses 12 yrs ago and pt was been doing well since that time. Then on 04/16/15 pt had sinus pressure a mass was discovered and a bx performed at [facility] which confirmed diffuse large B cell lymphoma- pt has begun chemo (RD_EPOCH) at [facility] after which she ended up at [facility] with admission 05/05/15 due to fatigue, weakness, nausea, severe hyponatremia (chronic) ,hypocloremia, hypokalemia, hypomagnesium, anemia, pancytopenia, chemo induced neutropenia, UTI. Pt then decided to have chemo here-locally. She has had 2 doses of EOPCH with Rituxan so far. Additional hx of: DVT L axillae yrs ago, migraines, stage 3 kidney disease, antiphospholipid antibody syndrome with hypercoagulable state, anemia of chronic kidney disease, SLE, paresthesia, peripheral neuropathy bilateral hands, feet and some numbness in face which she attributes to chemo and nasal surgery, pt is on lipitor not for elevated lipids but due to lupus potentially causing heart dx. 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 not asthmatic. takes atorvastatin for cardiac not hyperlipidemia Last Myocardial Infarction Date:: 2005 heart event History of Any Multi-Drug Resistant Organisms: None Reported Past Surgical History: Appendectomy, Bowel Resection, Heart Catheterization, Hysterectomy, Orthopedic Surgery Additional Past Surgical History / Comment(s): 02/2015 [facility] 05/29/15 PICC line insertion. Other SX HX: tumor removed from left arm from 1st time of lymphoma, 04/16/15 sinus bx, yrs ago mediport L chest which never worked and was removed. small bowel obstruction and had laparoscopic surgery 02/15, bunionectomy, colonoscopy egd, Past Anesthesia/Blood Transfusion Reactions: No Reported Reaction Additional Past Anesthesia/Blood Transfusion Reaction / Comment(s): blood transfusion no reactions Past Psychological History: Anxiety, Depression Smoking Status: Never smoker Past Alcohol Use History: None Reported Past Drug Use History: None Reported - Past Family History Father Family Medical History: Cancer Additional Family Medical History / Comment(s): prostate CA Mother Family Medical History: No Reported History Brother(s) Family Medical History: Myocardial Infarction (MS) General Exam Limitations: no limitations General appearance: alert, in no apparent distress Head exam: Present: atraumatic, normocephalic, normal inspection Eye exam: Present: normal appearance, PERRL, EOMI. Absent: scleral icterus, conjunctival injection, periorbital swelling ENT exam: Present: normal exam, mucous membranes moist Neck exam: Present: normal inspection. Absent: tenderness, meningismus, lymphadenopathy Respiratory exam: Present: normal lung sounds bilaterally. Absent: respiratory distress, wheezes, rales, rhonchi, stridor Cardiovascular Exam: Present: regular rate, normal rhythm, normal heart sounds. Absent: systolic murmur, diastolic murmur, rubs, gallop, clicks GI/Abdominal exam: Present: soft, normal bowel sounds. Absent: distended, tenderness, guarding, rebound, rigid Extremities exam: Present: normal inspection, full ROM, normal capillary refill. Absent: tenderness, pedal edema, joint swelling, calf tenderness Back exam: Present: normal inspection Neurological exam: Present: alert, oriented X3, CN II-XII intact Psychiatric exam: Present: normal affect, normal mood Skin exam: Present: warm, dry, intact, normal color. Absent: rash Course Vital Signs 12/17/24 12/18/24 20:06 02:03 Temperature 99.6 F Pulse Rate 84 79 Respiratory 18 18 Rate Blood Pressure 106/69 138/66 O2 Sat by Pulse 97 95 Oximetry - Reevaluation(s) Reevaluation #1: 12/17/24 21:49 Medical records reviewed Reevaluation #2: Patient symptoms continue to improve here in the ER Reevaluation #3: Patient informed of results questions answered Reevaluation #4: Was pt. sent in by a medical professional or institution ([facility], [employer], urgent care, hospital, or prison...) When possible be specific @ -no Did you speak to anyone other than the patient for history (EMS, parent, family, police, friend...)? What history was obtained from this source @ -no Did you review nursing and triage notes (agree or disagree)? Why? @ -agree Are old charts reviewed (outside hosp., previous admission, EMS record, old EKG, old radiological studies, urgent care reports/EKG's, prison records)? Report findings @ -yes Differential Diagnosis (chest pain, altered mental status, abdominal pain women, abdominal pain men, vaginal bleeding, weakness, fever, dyspnea, syncope, headache, dizziness, GI bleed, back pain, seizure, CVA, palpatations, mental health, musculoskeletal)? @ -prior EKG interpreted by me (3pts min.). @ -no X-rays interpreted by me (1pt min.). @ -no CT interpreted by me (1pt min.). @ -yes negative for acute disease, positive air-fluid levels and diarrheal illness enteritis U/S interpreted by me (1pt. min.). @ -no What testing was considered but not performed or refused? (CT, X-rays, U/S, labs)? Why? @ -none What meds were considered but not given or refused? Why? @ -none Did you discuss the management of the patient with other professionals (professionals i.e. , PA, [employer], lab, RT, psych nurse, rn social services, director of grants, teacher, court registry officer, pillowcase maker)? Give summary @ -no Was smoking cessation discussed for >3mins.? @ -no Was critical care preformed (if so, how long)? @ -no Were there social determinants of health that impacted care today? How? (Homelessness, low income, unemployed, alcoholism, drug addiction, transportation, low edu. Level, literacy, decrease access to med. care, intermediate, rehab)? @ -none Was there de-escalation of care discussed even if they declined (Discuss DNR or withdrawal of care, Hospice)? DNR status @ -no What co-morbidities impacted this encounter? (DM, HTN, Smoking, COPD, CAD, Cancer, CVA, ARF, Chemo, Hep., AIDS, mental health diagnosis, sleep apnea, morbid obesity)? @ -none Was patient admitted / discharged? Hospital course, mention meds given and route, prescriptions, significant lab abnormalities, going to OR and other pertinent info. @ - 69-year-old female for reevaluation of nausea vomiting and diarrhea. Patient resuscitated here in the emergency department and continues to feel well, at this time we see no need for inpatient hospitalization patient has normal and improving lab testing, CT scan here in the ER is also well and she can be discharged home Discharge extremes of Undiagnosed new problem with uncertain prognosis? @ -no Drug Therapy requiring intensive monitoring for toxicity (Heparin, Nitro, Insulin, Cardizem)? @ -no Were any procedures done? @ -no Diagnosis/symptom? @ -Gastroenteritis nausea vomiting and diarrhea Acute, or Chronic, or Acute on Chronic? @ -Acute Uncomplicated (without systemic symptoms) or Complicated (systemic symptoms)? @ -Complicated Side effects of treatment? @ -no Exacerbation, Progression, or Severe Exacerbation? @ -exacerbation Poses a threat to life or bodily function? How? (Chest pain, USA, MS, pneumonia, PE, COPD, DKA, ARF, appy, cholecystitis, CVA, Diverticulitis, Homicidal, Suicidal, threat to staff... and all critical care pts) @ -yes 12/27/24 00:43 Reevaluation #5: Differential Abdominal Pain Women: Appendicitis, Cholecystitis, diverticulosis, ischemic bowel, pancreatitis, hepatitis, UTI, gastroenteritis, AAA, incarcerated hernia, bowel obstruction, constipation, inflammatory bowel, hepatitis, peptic ulcer disease, splenic infar ction, perforated viscus, vulvitis, ovarian torsion, PID, kidney stone, placenta abruption, this is not meant to be an all-inclusive list Medical Decision Making - Medical Decision Making 69-year-old female for reevaluation of nausea vomiting and diarrhea. Patient resuscitated here in the emergency department and continues to feel well, at th is time we see no need for inpatient hospitalization patient has normal and improving lab testing, CT scan here in the ER is also well and she can be discharged home - Lab Data Result diagrams: 12/17/24 21:19 12/17/24 21:19 Lab Results 12/17/24 12/17/24 12/17/24 Range/Units 21:19 21: 21:19 WBC 7.1 (3.8-10.6) k/uL RBC 3.88 (3.80-5.40) m/uL Hgb 12.5 (11.4-16.0) gm/dL Hct 38.9 (34.0-46.0) % MCV 100.4 H (80.0-100.0) fL MCH 32.3 (25.0-35.0) pg MCHC 32.2 (31.0-37.0) g/dL RDW 13.8 (11.5-15.5) % Plt Count 226 (150-450) k/uL MPV 8.4 Neutrophils % 78 % Lymphocytes % 14 % Monocytes % 7 % Eosinophils % 1 % Basophils % 0 % Neutrophils # 5.5 (1.3-7.7) k/uL Lymphocytes # 1.0 (1.0-4.8) k/uL Monocytes # 0.5 (0-1.0) k/uL Eosinophils # 0.1 (0-0.7) k/uL Basophils # 0.0 (0-0.2) k/uL Macrocytosis Slight Sodium 137 (137-145) mmol/L Potassium 4.9 (3.5-5.1) mmol/L Chloride 108 H (98-107) mmol/L Carbon Dioxide 20 L (22-30) mmol/L Anion Gap 9 mmol/L BUN 31 H (7-17) mg/dL Creatinine 1.24 H (0.52-1.04) mg/dL Est GFR (CKD-EPI)AfAm 51 (>60 ml/min/1.73 sqM) Est GFR (CKD-EPI)NonAf 44 (>60 ml/min/1.73 sqM) Glucose 89 (74-99) mg/dL Plasma Lactic Acid Jimi (0.7-2.0) mmol/L Calcium 9.1 (8.4-10.2) mg/dL Phosphorus 4.2 (2.5-4.5) mg/dL Magnesium 1.8 (1.6-2.3) mg/dL Total Bilirubin 0.5 (0.2-1.3) mg/dL AST 29 (14-36) U/L ALT 24 (4-34) U/L Alkaline Phosphatase 46 (38-126) U/L Troponin I <0.012 (0.000-0.034) ng/mL Total Protein 6.9 (6.3-8.2) g/dL Albumin 4.2 (3.5-5.0) g/dL Lipase 47 (23-300) U/L Urine Color Urine Appearance (Clear) Urine pH (5.0-8.0) Ur Specific [place] (1.001-1.035) Urine Protein (Negative) Urine Glucose (UA) (Negative) Urine Ketones (Negative) Urine Blood (Negative) Urine Nitrite (Negative) Urine Bilirubin (Negative) Urine Urobilinogen (<2.0) mg/dL Ur Leukocyte Esterase (Negative) Urine RBC (0-5) /hpf Urine WBC (0-5) /hpf Ur Squamous Epith Cells (0-4) /hpf Hyaline Casts (0-2) /lpf Urine Mucus (None) /hpf Urine Yeast (Budding) (None) /hpf C. difficile (EIA) Intrp (Negative) 12/17/24 12/17/24 12/17/24 Range/Units 21:19 21:48 22:46 WBC (3.8-10.6) k/uL RBC (3.80-5.40) m/uL Hgb (11.4-16.0) gm/dL Hct (34.0-46.0) % MCV (80.0-100.0) fL MCH (25.0-35.0) pg MCHC (31.0-37.0) g/dL RDW (11.5-15.5) % Plt Count (150-450) k/uL MPV Neutrophils % % Lymphocytes % % Monocytes % % Eosinophils % % Basophils % % Neutrophils # (1.3-7.7) k/uL Lymphocytes # (1.0-4.8) k/uL Monocytes # (0-1.0) k/uL Eosinophils # (0-0.7) k/uL Basophils # (0-0.2) k/uL Macrocytosis Sodium (137-145) mmol/L Potassium (3.5-5.1) mmol/L Chloride (98-107) mmol/L Carbon Dioxide (22-30) mmol/L Anion Gap mmol/L BUN (7-17) mg/dL Creatinine (0.52-1.04) mg/dL Est GFR (CKD-EPI)AfAm (>60 ml/min/1.73 sqM) Est GFR (CKD-EPI)NonAf (>60 ml/min/1.73 sqM) Glucose (74-99) mg/dL Plasma Lactic Acid Jimi 1.0 (0.7-2.0) mmol/L Calcium (8.4-10.2) mg/dL Phosphorus (2.5-4.5) mg/dL Magnesium (1.6-2.3) mg/dL Total Bilirubin (0.2-1.3) mg/dL AST (14-36) U/L ALT (4-34) U/L Alkaline Phosphatase (38-126) U/L Troponin I (0.000-0.034) ng/mL Total Protein (6.3-8.2) g/dL Albumin (3.5-5.0) g/dL Lipase (23-300) U/L Urine Color Colorless Urine Appearance Clear (Clear) Urine pH 5.0 (5.0-8.0) Ur Specific [place] 1.014 (1.001-1.035) Urine Protein Trace H (Negative) Urine Glucose (UA) Negative (Negative) Urine Ketones Negative (Negative) Urine Blood Trace H (Negative) Urine Nitrite Negative (Negative) Urine Bilirubin Negative (Negative) Urine Urobilinogen <2.0 (<2.0) mg/dL Ur Leukocyte Esterase Negative (Negative) Urine RBC <1 (0-5) /hpf Urine WBC 5 (0-5) /hpf Ur Squamous Epith Cells <1 (0-4) /hpf Hyaline Casts 1 (0-2) /lpf Urine Mucus Rare H (None) /hpf Urine Yeast (Budding) Rare H (None) /hpf C. difficile (EIA) Intrp Negative (Negative) - EKG Data -: EKG Interpreted by Me (EKG is sinus rhythm 75 NV 202 QRS 86 QTc 403) - Radiology Data Radiology results: report reviewed (CT abdomen pelvis is negative for acute disease), image reviewed Disposition Clinical Impression: Generalized weakness, Dehydration, Nausea and vomiting, Diarrhea Disposition: HOME SELF-CARE Condition: Fair Instructions (If sedation given, give patient instructions): Acute Nausea and Vomiting (ED), Acute Diarrhea (ED) Is patient prescribed a controlled substance at d/c from ED?: No Referrals: Quentin Espinosa MD [Primary Care Provider] - 1-2 days Time of Disposition: 01:00
[2024-12-17] MEDS: SODIUM CHLORIDE 0.9% 500 ML 500 ML IV STA (21:28)
[2024-12-17] MEDS: SODIUM CHLORIDE 0.9% 1,000 ML IV STA (21:29)
[2024-12-17] MEDS: ONDANSETRON 4 MG/2 ML VIAL IVP STA (21:31)
[2024-12-17 21:53] LABS: Basophils % (A) 0 %; Eosinophils # (A) 0.1 k/uL (0-0.7); Eosinophils % (A) 1 %; HCT 38.9 % (34.0-46.0); HGB 12.5 gm/dL (11.4-16.0); Lymphocytes % (A) 14 %; MCH 32.3 pg (25.0-35.0); MCHC 32.2 g/dL (31.0-37.0); MCV 100.4 fL (80.0-100.0); Macrocytosis Slight; Mean Platelet Volume 8.4; Monocytes # (A) 0.5 k/uL (0-1.0); Monocytes % (A) 7 %; Neutrophils # (A) 5.5 k/uL (1.3-7.7); Neutrophils % (A) 78 %; Platelet Count 226 k/uL (150-450); RBC 3.88 m/uL (3.80-5.40); RDW 13.8 % (11.5-15.5); WBC 7.1 k/uL (3.8-10.6)
[2024-12-17 22:08] LABS: ALT 24 U/L (4-34); AST 29 U/L (14-36); African American GFR (CKD) 51 (>60 ml/min/1.73 sqM); Albumin 4.2 g/dL (3.5-5.0); Alkaline Phosphatase 46 U/L (38-126); Anion Gap 9 mmol/L; Blood Urea Nitrogen 31 mg/dL (7-17); Calcium 9.1 mg/dL (8.4-10.2); Carbon Dioxide 20 mmol/L (22-30); Chloride 108 mmol/L (98-107); Glucose 89 mg/dL (74-99); Lipase 47 U/L (23-300); Magnesium 1.8 mg/dL (1.6-2.3); Non-African American GFR(CKD) 44 (>60 ml/min/1.73 sqM); Phosphorus 4.2 mg/dL (2.5-4.5); Potassium 4.9 mmol/L (3.5-5.1); Sodium 137 mmol/L (137-145); Total Bilirubin 0.5 mg/dL (0.2-1.3); Total Protein 6.9 g/dL (6.3-8.2)
[2024-12-17 23:08] LABS: Appearance,Urine Clear (Clear); Bilirubin,Urine Negative (Negative); Blood,Urine Trace (Negative); Budding Yeast,Urine Rare /hpf; Color,Urine Colorless; Glucose,Urine (UA) Negative (Negative); Hyaline Casts,Urine 1 /lpf (0-2); Ketones,Urine Negative (Negative); Leukocyte Esterase,Urine Negative (Negative); Mucus,Urine Rare /hpf; Nitrite,Urine Negative (Negative); Protein,Urine Trace (Negative); RBC,Urine <1 /hpf (0-5); Specific Gravity,Urine 1.014 (1.001-1.035); Squamous Epithelial Cell,Urine <1 /hpf (0-4); Urobilinogen,Urine <2.0 mg/dL (<2.0); WBC,Urine 5 /hpf (0-5)
[2024-12-18] MEDS: SODIUM CHLORIDE 0.9% 1,000 ML IV STA (01:16)
[2024-12-18] MEDS: LACTATED RINGERS 1,000 ML BAG IV STA (01:16)
--- NOTE | 2024-12-18 01:38 | CT ---
EXAM: CT Abdomen and Pelvis Without Intravenous Contrast CLINICAL HISTORY: CT Reason: pain TECHNIQUE: Axial computed tomography images of the abdomen and pelvis without intravenous contrast. CTDI is 7.4 mGy and DLP is 365.2 mGy-cm. This CT exam was performed using one or more of the following dose reduction techniques: automated exposure control, adjustment of the mA and/or kV according to patient size, and/or use of iterative reconstruction technique. COMPARISON: February 09, 2024. FINDINGS: Lung bases: Unremarkable. No mass. No consolidation. ABDOMEN: Liver: Unremarkable. Gallbladder and bile ducts: Unremarkable. No calcified stones. No ductal dilation. Pancreas: Unremarkable. No ductal dilation. Spleen: Unremarkable. No splenomegaly. Adrenals: Unremarkable. No mass. Kidneys and ureters: There are multiple cyst throughout both kidneys, similar to previous. This is unchanged. No follow-up is required. No hydronephrosis or ureterolithiasis is seen involving either kidney. Stomach and bowel: There are scattered gas fluid levels throughout nondilated large and small bowel. Gas fluid levels in the colon are abnormal and consistent with enteritis and/or ileus. The appendix is not visible. There is diverticulosis of the sigmoid colon without evidence of acute diverticulitis. PELVIS: Appendix: See above. Bladder: Unremarkable. No stones. Reproductive: Unremarkable as visualized. ABDOMEN and PELVIS: Intraperitoneal space: The uterus is absent. No free fluid is seen in the pelvis. No free air. Bones/joints: Mild general changes in the spine. No acute fracture or subluxation is seen. Soft tissues: Unremarkable. Vasculature: The abdominal aorta is mildly calcified but nondilated. Lymph nodes: Unremarkable. No enlarged lymph nodes. IMPRESSION: 1. No hydronephrosis or ureterolithiasis is seen involving either kidney. 2. There are scattered gas fluid levels throughout nondilated large and small bowel. Gas fluid levels in the colon are abnormal and consistent with enteritis and/or ileus. The appendix is not visible. There is diverticulosis of the sigmoid colon without evidence of acute diverticulitis.
[2024-12-18 02:34] VITALS: BP 138/66; PULSE 79
== END 2024-12-18 02:03 | disposition home or self-care (01) ==
LOC: EC 19:26
DX: R53.1 Weakness (principal); E86.0 Dehydration; R11.2 Nausea with vomiting, unspecified; R19.7 Diarrhea, unspecified
CPT/HCPCS: 36415; 74176; 80053; 81001; 83605; 83690; 83735; 84100; 84484; 85025; 87324; 93005; 96360; 96361; 99284